=== PATIENT | female | born 1960 | race Caucasian/White ===

== ENCOUNTER 2018-09-16 11:55 | Emergency (ER) | payer OTHER ==
--- OUTSIDE RECORDS SUMMARY | 2018-09-16 11:57 | XMS REPORT ---
:1960 [facility] Address [address] [place] [address] Care Team Providers Name Role Phone Unavailable Unavailable Unavailable Payers Payer Name Policy Type Policy Number Effective Date Expiration Date Problems This patient has no known problems. Allergies, Adverse Reactions, Alerts Allergy Name Allergy Status Severity Reaction(s) Onset Inactive Treating Comments Type Date Date Clinician Tetracyclines DA Active U 2017-0 4-17 00:00: 00 lactose DA Active U 2018-0 4-17 00:00: 00 clindamycin DA Active U 2017-0 4-17 00:00: 00 clavulanic acid DA Active U 2017-0 4-17 00:00: [address] 0 4-17 00:00: 00 [place] [address] 4-17 00:00: 00 egg DA Active U 0 4-17 00:00: 00 Medications This patient has no known medications. Results Test Description Test Time Test Comments Text Results Atomic Results Result Comments - CT MAXIFAC W/O 2018-08-31 13:39:00 Name: LENIN FAITH [facility] [place] : 1960 Age/S: 57 / F [id number] [place] [place] Unit #: [id number] Loc: [place] [address] Phys: Lawrence Bryan III, MD Acct: [id number] Dis Date: Status: REG CLI PHONE #: [phone] Exam Date: 08/31/2018 1226 FAX #: Reason: SINUS LANDMARK EXAMS: CPT: [id number] CT MAXIFAC W/O CONTRAST 06324 Location: T 18 CT of the sinuses, 08/31/18 TECHNIQUE: CT examination of the sinuses was performed obtaining 1.25 mm axial images on a helical scanner without IV contrast. CT landmark technique employed. Both coronal and sagittal 2D reformatted images acquired on the CT workstation using MPR software. Scanning conducted in the axial plane contiguously from above frontal sinuses through oropharynx . The examination was performed on an updated helical CT scanning using low-dose radiation technique. Automatic exposure control technique was utilized to reduce radiation dose. CLINICAL HISTORY: Chronic sinusitis. ICD code J 32.9 COMPARISON EXAMS: None of the sinuses FINDINGS: FRONTAL SINUSES: There is extensive opacification in the left frontal sinus with associated mucoperiosteal thickening consistent with chronic sinus disease with essentially complete opacification without dural violation identified. The right frontal sinus is somewhat hyperplastic but clear. No compromise of the right frontal ethmoidal recess. ETHMOID AIR CELLS: Normal development is identified with extensive opacification of the left anterior chamber. Relative sparing of the left posterior chamber. There is also opacification medially in particular the right anterior ethmoid sinus on image #53 of moderate degree and very small degree right posteriorly. No dural violation again is seen with the fovea ethmoidalis noted to be intact. The lamina papyracea appears intact. Mild thinning of ethmoid septae of the left side consistent with chronic sinusitis. Both sphenoethmoidal recesses are patent. MAXILLARY SINUSES: Septation is seen transversing the right maxillary sinus seen anteriorly with trace degree of opacification along this septation. There is an air-fluid level in the left maxillary sinus of moderate size consistent with acute sinus disease. There is also lobulated mucosal thickening is seen of small degree in the left maxillary sinus PAGE 1 Signed Report (CONTINUED) [facility] 1960 Age[facility]S: 57 / F [id number] [facility] [place] Unit #: [id number] Loc: [place] [address] Phys: Lawrence Bryan III, MD Acct: [id number] Dis Date: Status: REG CLI PHONE #: [phone] Exam Date: 08/31/2018 1226 FAX #: Reason: SINUS LANDMARK EXAMS: CPT: [id number] CT MAXIFAC W/O CONTRAST 01749 <Continued> and there is also opacification along the left infundibulum with occlusion of the left ostiomeatal unit. No bony expansion or air-fluid level. Small ossified density having imaging characteristics of a small osteoma is also noted inferiorly and laterally in the right maxillary sinus measuring approximately 5 x 4 x 4 mm size.. SPHENOID SINUSES: There is presence of a left sphenoethmoidal air cell appear relatively clear. No significant sphenoid sinus disease. Nasal cavity/nasopharyngeal region: Minimal deviation nasal septum to the right. Right sanjay bullosa is identified. This does narrow the caliber of the right middle meatus. Polypoid changes also seen superiorly in the left side nasal cavity compromising drainage. No abnormality is seen in the nasopharyngeal region. No finding is seen intracranially. There is bilateral opacification of mastoid air cells moderate degree without coalescent appearance and without involvement of the middle ear cavity. IMPRESSION: Essentially complete opacification left frontal sinus and left anterior ethmoid sinus with findings consistent with chronic sinusitis. Occlusion of the left frontal ethmoidal recess is seen and there is also occlusion of the left ostiomeatal unit. Air-fluid level in the left maxillary sinus consistent with acute maxillary sinus disease. No mucocele formation correlation. Lesser degree of right paranasal sinus disease predominantly in the anterior ethmoid sinus medially. Bilateral mastoid air cell opacification moderate degree without coalescent appearance or involvement of the middle ear cavity PAGE 2 Signed Report (CONTINUED) Name: LENIN FAITH : 1960 Age/S: 57 / F [id number] [place] Unit #: [id number] Loc: [place] [address] Phys: Lawrence Bryan III, MD Acct: [id number] Dis Date: Status: REG CLI PHONE #: [phone] Exam Date: 08/31/2018 1226 FAX #: Reason: SINUS LANDMARK EXAMS: CPT: [id number] CT MAXIFAC W/O CONTRAST 91568 <Continued> at 1339 Reported and signed by: Belén Guerrero M.D. CC: Oswaldo Reynolds MD; Lawrence Bryan III, MD Technologist:Dario Francisco, RT(R)(CT); Kr CTDI: DLP: Trnscb Date/Time: 08/31/2018 (5803) [email or web address] Orig Print D/T: S: 08/31/2018 (4701) PAGE 3 Signed Report
--- OUTSIDE RECORDS SUMMARY | 2018-09-16 11:57 | XMS REPORT | Clinical Summary ---
:1960 Author Organization [facility] Address [address] [place] [address] Care Team Providers Name Role Phone Oswaldo Reynolds MD Primary Care Provider Allergies Active Allergy Reactions Severity Noted Date Comments Amoxicillin-Pot Clavulanate 07/08/2017 Ciprofloxacin 07/08/2017 Clindamycin 07/08/2017 Tetracycline 07/08/2017 Medications Medication Sig Dispensed Refills Start Date End Date Status amLODIPine (NORVASC) 10 Take 10 mg by 1 07/02/2017 Active mg tablet mouth nightly. baclofen (LIORESAL) 20 Take 20 mg by 2 06/29/2017 Active MG tablet mouth 3 (three) times a day as needed. clonIDINE (CATAPRES) Take 0.1 mg by 1 06/14/2017 Active 0.1 MG tablet mouth 2 (two) times a day. clotrimazole-betamethas APPLY LEFT FOOT 2 0 06/10/2017 Active one (LOTRISONE) 1-0.05 TIMES A DAY % cream desloratadine Take 5 mg by 0 05/20/2017 Active (CLARINEX) 5 mg tablet mouth daily. esomeprazole (NexIUM) Take 40 mg by 1 04/26/2017 Active 40 MG capsule mouth every morning. ibuprofen Take 800 mg by 2 06/14/2017 Active (ADVIL,MOTRIN) 800 MG mouth 3 (three) tablet times a day as needed. metFORMIN (GLUCOPHAGE) Take 1,000 mg by 1 07/02/2017 Active 1,000 mg tablet mouth 2 (two) times a day. methocarbamol (ROBAXIN) TAKE 1-2 ORAL 0 06/14/2017 Active 750 MG tablet THREE TIMES A DAY NEEDED metoprolol succinate XL TAKE BY MOUTH 1 2 06/28/2017 Active (TOPROL-XL) 100 mg 24 TABLET 2 TIMES A hr tablet DAY. olmesartan-hydrochlorot TAKE 1 TABLET BY 2 05/15/2017 Active hiazide (BENICAR HCT) MOUTH EVERY DAY 40-25 mg per tablet (DUE FOR LABS/ OFFICE VISIT BEFORE NEXT REFILL) pramipexole (MIRAPEX) TAKE 1-2 TABLET 1 06/21/2017 Active 0.25 MG tablet BY MOUTH 2-3 HOURS BEFORE BEDTIME Active Problems Problem Noted Date Carpal tunnel syndrome of left wrist 07/08/2017 Right carpal tunnel syndrome 07/08/2017 Olecranon bursitis of left elbow 06/24/2017 Olecranon bursitis of right elbow 05/13/2017 Social History Tobacco Use Types Packs/Day Years Used Date Never Assessed Sex Assigned at Date Recorded Not on file Job Start Date Occupation Industry Not on file Not on file Not on file Travel History Travel Start Travel End No recent travel history available. Last Filed Vital Signs Not on file Plan of Treatment Health Maintenance Due Date Last Done Comments BREAST CANCER SCREENING 2012 COLON CANCER SCREENING 2012 SHINGLES VACCINES (#1) 2012 INFLUENZA VACCINE 11/10/2018 Results Not on fileafter 09/15/2017 Advance Directives Patient has advance care planning documents on file. For more information, please contact:[place] [address]
[2018-09-16 13:03] LABS: Protime INR 1.07
[2018-09-16 13:06] LABS: Absolute Monocytes 0.3 K/uL (0.1-1.3); Basophils % 0.5 % (0-1.3); Eosinophils % 0.4 % (0-4.4); Hematocrit 41.6 % (36.0-45.0); Lymphocytes % 12.2 % (15.3-44.8); MPV 7.1 fL (7.6-11.3); RBC Red Blood Cell Count 5.23 M/uL (3.86-4.86)
[2018-09-16] MEDS ORDERED: ALBUTEROL 2.5 MG/3 ML NEB SOL ONE (13:18)
[2018-09-16] MEDS ORDERED: IPRATROPIUM BROM 0.5MG/2.5ML ONE (13:18)
[2018-09-16 13:19] LABS: ALT/SGPT 25 U/L (12-78); AST/SGOT 10 U/L (15-37); Albumin 3.8 g/dL (3.4-5.0); Alkaline Phosphatase 109 U/L (45-117); BUN Blood Urea Nitrogen 11 mg/dL (7-18); Bicarbonate 27 mmol/L (21-32); Bilirubin Direct 0.1 mg/dL (0-0.2); Bilirubin Total 0.3 mg/dL (0.2-1.0); Glucose Level 99 mg/dL (74-106); NT PRO-BNP 339 pg/mL (<125); Potassium 3.4 mmol/L (3.5-5.1); Protein, Total 7.5 g/dL (6.4-8.2); Sodium Level 134 mmol/L (136-145); Troponin (Emerg Dept Use Only) < 0.02 ng/mL (0.0-0.045)
[2018-09-16] MEDS ORDERED: METHYLPREDNISOLONE 40 MG INJ ONE (14:12)
[2018-09-16 14:14] LABS: Urine Blood NEGATIVE (NEG); Urine Glucose NEGATIVE (NEG)
[2018-09-16 14:15] LABS: Urine Protein NEGATIVE (NEG)
--- NOTE | 2018-09-16 14:45 | RAD REPORT ---
EXAM DESCRIPTION: CT - Chest For Pe Angio - 09/16/2018 2:33 pm CLINICAL HISTORY: Chest pain. SOB COMPARISON: No comparisons TECHNIQUE: CT angiogram of the pulmonary arteries was performed with MIP. All CT scans are performed using dose optimization technique as appropriate and may include automated exposure control or mA/KV adjustment according to patient size. FINDINGS: Left lobe of the thyroid is mildly enlarged and extends inferiorly resulting in mild mass effect on the trachea towards the right. No evidence of pulmonary thromboembolism. No acute aortic finding demonstrated. The lungs are clear. No significant pericardial or pleural fluid. No concerning bony finding. Mild thickening of both adrenal glands, greater on the right. Cholecystectomy clips. IMPRESSION: No evidence of pulmonary thromboembolism. No acute lung findings.
--- NOTE | 2018-09-16 15:50 | EDPHYS ---
Physician Documentation [facility] Name: Gini Barrow Age: 57 yrs Sex: Female : 1960 Arrival Date: 09/16/2018 Time: 11:58 Bed 14 Private MD: Oswaldo Reynolds ED Physician Maged Chambers HPI: 09/16 12:33 This 57 yrs old Female presents to ER via Wheelchair with complaints of cp Breathing Difficulty. 12:33 The patient has shortness of breath with light activity. cp 12:33 Onset: The symptoms/episode began/occurred gradually, and became worse today. Duration: cp The symptoms are continuous, and are steadily getting worse. Associated signs and symptoms: Pertinent positives: productive cough, Pertinent negatives: chest pain, fever, hemoptysis, vomiting. Severity of symptoms: in the emergency department the symptoms are unchanged despite home interventions. Patient reports history of smoking and is prescribed inhalers albuterol and symbicort but reports no diagnosis of COPD. Patient reports she was seen by PCP and this week and since has been taking Bactrim and tapering dose of Prednisone for sinus infection. 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 ch Historical: - Allergies: 12:50 Egg Derived; aa5 12:50 dairy; aa5 12:50 TETRACYCLINES; aa5 12:50 Ciprofloxacin; aa5 12:50 Augmentin; aa5 12:50 Clindamycin; aa5 - Home Meds: 12:50 clonidine HCl 0.1 mg Oral tab 2 times per day [Active]; metoprolol succinate 100 mg aa5 oral Tb24 twice a day [Active]; metformin 1,000 mg Oral tab 1 tab 2 times per day [Active]; amlodipine 10 mg tab 1 tab once daily [Active]; esomeprazole magnesium 40 mg oral cpDR once daily [Active]; desloratadine 5 mg oral tab once daily [Active]; olmesartan oral oral once daily [Active]; pramipexole 0.25 mg oral tab nightly [Active]; aspirin 81 mg Oral chew once daily [Active]; Symbicort 160-4.5 mcg/actuation inhalation HFAA [Active]; Vitamin D Oral 2000 unit twice a day [Active]; Prednisolone 20mg Oral [Active]; Bactrim DS 800-160 mg Oral tab [Active]; ipratropium bromide inhalation inhalation [Active]; ProAir HFA inhalation inhalation [Active]; Symbicort inhalation inhalation [Active]; - PMHx: 12:50 Diabetes - NIDDM; Hypertension; Periodic Limb Movement Disorder; aa5 - PSHx: 12:26 Tonsillectomy; Cholecystectomy; ss - Immunization history:: Adult Immunizations up to date. - Ebola Screening: : No symptoms or risks identified at this time. - Social history:: Smoking status: Patient/guardian denies using tobacco, Patient/guardian denies using alcohol, street drugs. ROS: 12:38 Constitutional: Negative for body aches, chills, fever, poor PO intake. cp 12:38 Eyes: Negative for injury, pain, redness, and discharge. cp 12:38 ENT: Positive for sinus congestion, Negative for drainage from ear(s), ear pain, difficulty swallowing, difficulty handling secretions. 12:38 Cardiovascular: Positive for edema, Negative for chest pain, palpitations. 12:38 Respiratory: Positive for cough, shortness of breath, on exertion. Negative for hemoptysis. 12:38 Abdomen/GI: Negative for abdominal pain, nausea, vomiting, and diarrhea, black/tarry stool, rectal bleeding. 12:38 Back: Negative for pain at rest, pain with movement, radiated pain. 12:38 : Negative for urinary symptoms. 12:38 Skin: Negative for swelling. 12:38 Neuro: Negative for altered mental status, headache, weakness. 12:38 All other systems are negative. Exam: 12:45 ECG was reviewed by the Attending Physician. cp 12:45 Constitutional: The patient appears in no acute distress, alert, awake, cp non-diaphoretic, non-toxic, well developed, well nourished, obese. 12:45 Head/Face: Normocephalic, atraumatic. cp 12:45 Eyes: Pupils equal round and reactive to light, extra-ocular motions intact. Lids and lashes normal. Conjunctiva and sclera are non-icteric and not injected. Cornea within normal limits. Periorbital areas with no swelling, redness, or edema. 12:45 ENT: External ear(s): are unremarkable, Ear canal(s): are normal, clear, TM's: dullness, bilaterally, Nose: is normal, Mouth: Lips: moist, Oral mucosa: moist, Posterior pharynx: Airway: no evidence of obstruction, patent, Tonsils: no enlargement, no exudate, swelling, is not appreciated, erythema, that is mild, exudate, is not appreciated, Voice: is normal. 12:45 Neck: External neck: is normal, ROM/movement: is normal, is supple, without pain, no range of motions limitations, no nuchal rigidity. 12:45 Chest/axilla: Inspection: normal, Palpation: is normal, no crepitus, no tenderness. 12:45 Cardiovascular: Rate: normal, Rhythm: regular, Edema: ankle edema, that is mild, JVD: is not appreciated. 12:45 Respiratory: the patient does not display signs of respiratory distress, Respirations: normal, no use of accessory muscles, no retractions, no splinting, no tachypnea, labored breathing, is not present, Breath sounds: decreased breath sounds, that are mild, diffuse, stridor, is not appreciated, + upper airway congestion. wheezing: is not appreciated. 12:45 Abdomen/GI: Inspection: abdomen appears normal, Palpation: abdomen is soft and non-tender, in all quadrants. 12:45 Back: pain, is absent, ROM is normal. 12:45 Skin: no rash present. 12:45 Neuro: Orientation: to person, place \T\ time. Mentation: is normal, Cerebellar function: is grossly normal, Motor: is normal, Sensation: is normal, Gait: is steady. Vital Signs: 12:26 BP 136 / 90; Pulse 82; Resp 25; Pulse Ox 94% on R/A; ss 12:50 Temp 99.3(O); aa5 14:00 BP 122 / 81; Pulse 85; Resp 20 S; Pulse Ox 94% on R/A; Pain 0/10; aa5 15:27 BP 132 / 82; Pulse 82; Resp 22; Temp 98.9; Pulse Ox 98% on R/A; Pain 6/10; ch 16:01 BP 128 / 78; Pulse 80; Resp 16; Temp 98.8; Pulse Ox 99% on R/A; Pain 2/10; ch MDM: 12:15 Patient medically screened. cp 13:00 Differential diagnosis: asthma, Bronchitis CHF exacerbation, Chronic Obstructive cp Pulmonary Disease Myocardial Infarction pneumonia, Pneumothorax pulmonary edema, Pulmonary Embolism reactive airway disease. 15:50 Data reviewed: vital signs, nurses notes, lab test result(s), EKG, radiologic studies, cp CT scan, and as a result, I will discharge patient. 15:50 Test interpretation: by ED physician or midlevel provider: ECG. Counseling: I had a cp detailed discussion with the patient and/or guardian regarding: the historical points, exam findings, and any diagnostic results supporting the discharge/admit diagnosis, lab results, radiology results, the need for outpatient follow up, a family practitioner, to return to the emergency department if symptoms worsen or persist or if there are any questions or concerns that arise at home. Response to treatment: the patient's symptoms have mildly improved after treatment, and as a result, I will discharge patient. 09/16 12:30 Order name: Basic Metabolic Panel; Complete Time: 13:19 09/16 13:20 Interpretation: Normal except: NA 134; K 3.4; CL 96; GFR 63. 09/16 12:30 Order name: CBC with Diff; Complete Time: 13:19 cp 09/16 12:30 Order name: LFT's; Complete Time: 13:19 cp 09/16 12:30 Order name: Magnesium; Complete Time: 13:19 cp 09/16 12:30 Order name: NT PRO-BNP; Complete Time: 13:19 cp 09/16 13:20 Interpretation: Abnormal: NT PRO-BNP 339. cp 09/16 12:30 Order name: PT-INR; Complete Time: 13:19 cp 09/16 12:30 Order name: Troponin (emerg Dept Use Only); Complete Time: 13:19 cp 09/16 12:30 Order name: EKG; Complete Time: 12:31 cp 09/16 13:23 Order name: D-Dimer; Complete Time: 14:02 cp 09/16 14:02 Interpretation: Abnormal: D-DIMER 654. cp 09/16 13:23 Order name: LAB Add On 09/16 13:52 Order name: Urine Dipstick--Ancillary (enter results); Complete Time: 15:31 eb 09/16 14:03 Order name: CT Chest For PE Angio; Complete Time: 15:31 cp 09/16 15:32 Interpretation: Report reviewed. 09/16 12:30 Order name: Cardiac monitoring; Complete Time: 12:51 cp 09/16 12:30 Order name: EKG - Nurse/Tech; Complete Time: 12:51 cp 09/16 12:30 Order name: IV Saline Lock; Complete Time: 13:51 cp 09/16 12:30 Order name: Labs collected and sent; Complete Time: 12:51 cp 09/16 12:30 Order name: O2 Per Protocol; Complete Time: 12:51 cp 09/16 12:30 Order name: O2 Sat Monitoring; Complete Time: 12:51 cp 09/16 15:27 Order name: Diet [place]; Complete Time: 15:29 EC:45 Rate is 81 beats/min. Rhythm is regular. PA interval is normal. QRS interval is normal. cp QT interval is normal. Interpreted by me. Reviewed by me. Administered Medications: 13:00 Drug: Albuterol - atroVENT (3:1) (2.5 mg - 0.5 mg) 3 ml Route: Nebulizer; aa5 13:20 Follow up: Response: Wheezing diminished aa5 15:19 Follow up: Response: No adverse reaction 14:00 Drug: SOLU-Medrol 60 mg Route: IVP; Site: right upper arm; aa5 14:05 Follow up: Response: No adverse reaction aa5 Disposition: 09/17 07:25 Co-signature as Attending Physician, Maged Chambers MD. rn Disposition: 09/16/18 15:51 Discharged to Home. Impression: Shortness of breath, Cough. - Condition is Stable. - Discharge Instructions: Shortness of Breath, Cool Mist Vaporizer, Aspirin and Your Heart, Cough, Adult. - Prescriptions for Tessalon Perles 100 mg Oral Capsule - take 2 capsule by ORAL route every 8 hours As needed; 30 capsule. Albuterol Sulfate 2.5 mg /3 mL (0.083 %) Inhalation Solution for Nebulization - inhale 1 unit by NEBULIZATION route every 8 hours As needed; 1 box. - Medication Reconciliation Form, Thank You Letter, Antibiotic Education, Prescription Opioid Use form. - Follow up: Private Physician; When: 2 - 3 days; Reason: Worsening of condition. - Problem is new. - Symptoms have improved. Signatures: Dispatcher [employer] Mitali Novak RN RN Maged Chambers MD MD rn Calderon, Audri, RN RN aa5 Mirlande Hou RN RN ss Haider Lara PA PA cp Corrections: (The following items were deleted from the chart) 09/16 16:05 15:51 09/16/2018 15:51 Discharged to Home. Impression: Shortness of breath; Cough. ch Condition is Stable. Forms are Medication Reconciliation Form, Thank You Letter, Antibiotic Education, Prescription Opioid Use. Follow up: Private Physician; When: 2 - 3 days; Reason: Worsening of condition. Problem is new. Symptoms have improved. cp
--- NOTE | 2018-09-16 15:50 | ER ---
Nurse's Notes [facility] Name: Gini Barrow Age: 57 yrs Sex: Female : 1960 Arrival Date: 09/16/2018 Time: 11:58 Bed 14 Private MD: Oswaldo Reynolds Diagnosis: Shortness of breath;Cough Presentation: 09/16 12:11 Presenting complaint: Patient states: difficulty breathing on exertion, when getting ss anxious and/or upset. Pt reports she was seen recently by PCP for similar symptoms and put on prednisone and Bactrim which do not seem to be helping. 12:11 Method Of Arrival: Wheelchair ss 12:11 Transition of care: patient was not received from another setting of care. Onset of ss symptoms is unknown. Risk Assessment: Do you want to hurt yourself or someone else? Patient reports no desire to harm self or others. Initial Sepsis Screen: Does the patient meet any 2 criteria? No. Patient's initial sepsis screen is negative. Does the patient have a suspected source of infection? No. Patient's initial sepsis screen is negative. Care prior to arrival: None. 12:11 Acuity: AVELINA 3 ss SIEVE MAKER: 16:04 LMP N/A - menopause. ch Historical: - Allergies: 12:50 Egg Derived; aa5 12:50 dairy; aa5 12:50 TETRACYCLINES; aa5 12:50 Ciprofloxacin; aa5 12:50 Augmentin; aa5 12:50 Clindamycin; aa5 - Home Meds: 12:50 clonidine HCl 0.1 mg Oral tab 2 times per day [Active]; metoprolol succinate 100 mg aa5 oral Tb24 twice a day [Active]; metformin 1,000 mg Oral tab 1 tab 2 times per day [Active]; amlodipine 10 mg tab 1 tab once daily [Active]; esomeprazole magnesium 40 mg oral cpDR once daily [Active]; desloratadine 5 mg oral tab once daily [Active]; olmesartan oral oral once daily [Active]; pramipexole 0.25 mg oral tab nightly [Active]; aspirin 81 mg Oral chew once daily [Active]; Symbicort 160-4.5 mcg/actuation inhalation HFAA [Active]; Vitamin D Oral 2000 unit twice a day [Active]; Prednisolone 20mg Oral [Active]; Bactrim DS 800-160 mg Oral tab [Active]; ipratropium bromide inhalation inhalation [Active]; ProAir HFA inhalation inhalation [Active]; Symbicort inhalation inhalation [Active]; - PMHx: 12:50 Diabetes - NIDDM; Hypertension; Periodic Limb Movement Disorder; aa5 - PSHx: 12:26 Tonsillectomy; Cholecystectomy; ss - Immunization history:: Adult Immunizations up to date. - Ebola Screening: : No symptoms or risks identified at this time. - Social history:: Smoking status: Patient/guardian denies using tobacco, Patient/guardian denies using alcohol, street drugs. Screenin:40 Abuse screen: Denies threats or abuse. Nutritional screening: No deficits noted. aa5 Tuberculosis screening: No symptoms or risk factors identified. Fall Risk IV access (20 points). Ambulatory Aid- Crutches/Cane/Walker (15 pts). Total Gudino Fall Scale indicates Low Risk Score (25-44 pts). Fall prevention measures have been instituted. Assessment: 12:50 General: Appears uncomfortable, obese, Behavior is cooperative, anxious. Pain: Denies aa5 pain. Neuro: Level of Consciousness is awake, alert, obeys commands, Oriented to person, place, time, situation. Cardiovascular: Heart tones S1 S2 present Edema present to bilateral lower extremities. Rhythm is regular. Respiratory: Reports shortness of breath on exertion cough Airway is patent Respiratory effort is even, unlabored, Respiratory pattern is regular, symmetrical, Breath sounds with wheezes bilaterally. GI: Abdomen is obese. : No signs and/or symptoms were reported regarding the genitourinary system. EENT: No signs and/or symptoms were reported regarding the EENT system. Derm: Skin is pink, warm \\T\\ dry. Musculoskeletal: Range of motion: intact in all extremities, Pt is ambulatory with walker. 13:20 Reassessment: Patient is alert, oriented x 3, equal unlabored respirations, skin aa5 warm/dry/pink. Wheezing diminished bilaterally. Asked pt if SOB has improved, pt starts crying and states "I don't know". Asked pt if there is anything else I can do for her, states no complaints at this time. Pt appears calm now with sister at bedside. . 14:03 Reassessment: Patient is alert, oriented x 3, equal unlabored respirations, skin aa5 warm/dry/pink. Pt appears upset, pt states "I have to sit in this chair because the bed is so uncomfortable but the chair is not that comfortable either". Pt had disconnected all monitoring prior to me entering the room, monitoring continued at this time and pt agrees. Wheezing diminished. Pt states "I just need to get out of here as soon as possible because I am just so uncomfortable". Pt awaiting CT chest, pt notified of wait time, pt verbalizes understanding. . 15:25 Reassessment: Patient appears in no apparent distress at this time. Patient and/or ch family updated on plan of care and expected duration. Pain level reassessed. pt states her head hurts, she is hungry, slightly nausous, she wants her results back, and she feels very restless. pt brought some crackers. . 16:01 Reassessment: Patient appears in no apparent distress at this time. Patient and/or ch family updated on plan of care and expected duration. Pain level reassessed. Patient is alert, oriented x 3, equal unlabored respirations, skin warm/dry/pink. haider lara reviews plan of care with pt. pt refuses steroids. pt discharged home with prescriptions. no s/s of distress.. Vital Signs: 12:26 BP 136 / 90; Pulse 82; Resp 25; Pulse Ox 94% on R/A; ss 12:50 Temp 99.3(O); aa5 14:00 BP 122 / 81; Pulse 85; Resp 20 S; Pulse Ox 94% on R/A; Pain 0/10; aa5 15:27 BP 132 / 82; Pulse 82; Resp 22; Temp 98.9; Pulse Ox 98% on R/A; Pain 6/10; ch 16:01 BP 128 / 78; Pulse 80; Resp 16; Temp 98.8; Pulse Ox 99% on R/A; Pain 2/10; ch ED Course: 11:58 Patient arrived in ED. mr 11:58 Oswaldo Reynolds MD is Private Physician. mr 12:11 Haider Lara PA is PHCP. cp 12:11 Maged Chambers MD is Attending Physician. cp 12:26 Arm band placed on right wrist. ss 12:36 Triage completed. ss 12:45 Initial lab(s) drawn, by me, sent to lab. Missed attempt(s): 20 gauge in right forearm. dh3 Bleeding controlled, band aid applied, catheter tip intact. 12:50 Patient has correct armband on for positive identification. Placed in gown. Bed in low aa5 position. Call light in reach. Side rails up X 1. Adult w/ patient. 12:50 equipment monitor phototypesetting on. Pulse ox on. NIBP on. aa5 12:51 Evangelina Oliveira, VERITO is Primary Nurse. aa5 13:00 EKG done, by alarm technician. reviewed by Haider SONG. at1 13:40 Inserted saline lock: 22 gauge in right upper arm, using aseptic technique. Blood aa5 collected. 13:50 Urine collected: clean catch specimen, clear, sediment noted. dh3 14:00 Warm blanket given. ch 14:00 No provider procedures requiring assistance completed. IV discontinued, intact, ch bleeding controlled, No redness/swelling at site. Pressure dressing applied. 14:15 Report given to Mitali Shaikh RN. aa5 14:38 CT Chest For PE Angio In Process Unspecified. EDWV 16:01 Primary Nurse role handed off by Evangelina Oliveiar RN 16:01 Mitali Shaikh, VERITO is Primary Nurse. 16:04 No apparent distress. Resting quietly. Administered Medications: 13:00 Drug: Albuterol - atroVENT (3:1) (2.5 mg - 0.5 mg) 3 ml Route: Nebulizer; aa5 13:20 Follow up: Response: Wheezing diminished aa5 15:19 Follow up: Response: No adverse reaction 14:00 Drug: SOLU-Medrol 60 mg Route: IVP; Site: right upper arm; aa5 14:05 Follow up: Response: No adverse reaction aa5 Outcome: 15:51 Discharge ordered by MD. cp 16:04 Discharged to home via wheelchair, with family. 16:04 Condition: stable 16:04 Discharge instructions given to patient, family, Instructed on discharge instructions, follow up and referral plans. medication usage, Demonstrated understanding of instructions, follow-up care, medications, Prescriptions given X 3, pt given written prescription for nebulizer. 16:05 Patient left the ED. Signatures: Dispatcher [employer] [facility] Mitali Shaikh, Yue Pittman RN, ch, Evangelina, RN RN aa5 Mirlande Hou RN RN ss Radha Lennon, cloth winding supervisor EKG Tat1 Haider Lara PA PA cp Herrera, Vania 3 Corrections: (The following items were deleted from the chart) 15:19 14:00 Reassessment: Patient is alert, oriented x 3, equal unlabored respirations, skin aa5 warm/dry/pink. Pt appears upset, pt states "I have to sit in this chair because the bed is so uncomfortable but the chair is not that comfortable either". Pt had disconnected all monitoring prior to me entering the room, monitoring continued at this time and pt agrees. Wheezing diminished. Pt states "I just need to get out of here as soon as possible because I am just so uncomfortable". Pt awaiting CT chest, pt notified of wait time, pt verbalizes understanding. . aa5
[2018-09-16 16:23] VITALS: BP 128/78; TEMP 98.8; O2SAT 99
--- NOTE | 2018-09-17 09:04 | EKG ---
Test Date: 2018-09-16 Test Time: 12:37:24 [employer]: ARMIDA MEASUREMENT RESULTS: Intervals: Rate: 81 [place]: 144 QRSD: 82 QT: 368 QTc: 427 [place]: P: 54 [place]: 144 QRS: 40 T: 52 INTERPRETIVE STATEMENTS: Normal sinus rhythm Normal ECG Compared to ECG 10/01/2014 15:14:32 No significant changes Electronically Signed On 09-17-18 09:01:06 CDT by Kuldip Patel
== END 2018-09-16 16:05 | disposition home or self-care (01) ==
LOC: ER 11:55
DX: R05 Cough (principal); R06.02 Shortness of breath; E11.9 Type 2 diabetes mellitus without complications; I10 Essential (primary) hypertension; Z88.1 Allergy status to other antibiotic agents; Z79.84 Long term (current) use of oral hypoglycemic drugs; Z79.82 Long term (current) use of aspirin
CPT/HCPCS: 36415; 71275; 80048; 80076; 81003; 83735; 83880; 84484; 85025; 85379; 85610; 93005; 94640; 96374; 99285; J2920; Q9967

== ENCOUNTER 2019-05-14 16:22 | Inpatient (IN) | payer BC, OTHER ==
--- OUTSIDE RECORDS SUMMARY | 2019-05-14 16:24 | XMS REPORT ---
:1960 [facility] [address] [place] [address] Care Team Providers Name Role Phone Unavailable [...] 2017-0 4-17 00:00: 00 ciprofloxacin DA Active UT 0 4-17 00:00: 00 amoxicillin DA Active U 0 4-17 00:00: 00 egg DA Active U 0 4-17 00:00: 00 Medications This patient has no known medications. Results Test Description Test Time Test Comments Text Results Atomic Results Result Comments - CT MAXIFAC W/O 2018-08-31 13:39:00 Name: LENIN FAITH [facility] Robina : 1960 Age/S: 57 / F [id number] [address] [place] Unit #: [id number] Loc: [place] [address] Phys: Lawrence Bryan III, MD Acct: [id number] Dis Date: Status: REG CLI PHONE #: [phone] Exam Date: 08/31/2018 1226 FAX #: Reason: SINUS LANDMARK EXAMS: CPT: [id number] CT MAXIFAC W/O CONTRAST 83052 Location: T 18 CT of the sinuses, [...] PAGE 1 Signed Report (CONTINUED) [facility] 1960 Age/S: 57 / F [id number] [facility] [place] Unit #: [id number] Loc: [place] [address] Phys: Lawrence Bryan III, MD Acct: [id number] Dis Date: Status: REG CLI PHONE #: [phone] Exam Date: 08/31/2018 1226 FAX #: Reason: SINUS LANDMARK EXAMS: CPT: [id number] CT MAXIFAC W/O CONTRAST 95879 <Continued> and there is also opacification along [...] FAITH : 1960 Age/S: 57 / F [id number] [address] [place] Unit #: [id number] Loc: [place] [address] Phys: Lawrence Bryan III, MD Acct: [id number] Dis Date: Status: REG CLI PHONE #: [phone] Exam Date: 08/31/2018 1226 FAX #: Reason: SINUS LANDMARK EXAMS: CPT: [id number] CT MAXIFAC W/O CONTRAST 25901 <Continued> at 1339 Reported and signed by: Belén Guerrero M.D. CC: Oswaldo Reynolds MD; Lawrence Bryan III, MD Technologist:Daroi Francisco, RT(R)(CT); Kr CTDI: DLP: Trnscb Date/Time: 08/31/2018 (1081) [email or web address] Orig Print D/T: S: 08/31/2018 (8028) PAGE 3 Signed Report
[2019-05-14] MEDS ORDERED: FAMOTIDINE 20 MG/2 ML VIAL IV ONE (16:51)
[2019-05-14] MEDS ORDERED: NA CHLORIDE 0.9% 2,000 ML ONE (16:51)
[2019-05-14 17:05] LABS: Absolute Lymphocytes (CBC) 0.9 K/uL (0.7-4.9); Basophils % 0.2 % (0-1.3); Hematocrit 42.1 % (36.0-45.0); Lymphocytes % 5.1 % (15.3-44.8); MPV 8.6 fL (7.6-11.3); RBC Red Blood Cell Count 5.18 M/uL (3.86-4.86)
[2019-05-14 17:06] LABS: Protime INR 1.1
[2019-05-14 17:14] LABS: Arterial Blood Carboxyhemoglob 0.2 % (0-1.5); Blood Gas Oxyhemoglobin 92.2 % (94-97); Blood O2 Saturation 93.6 % (92-98.5)
--- NOTE | 2019-05-14 17:21 | RAD REPORT ---
EXAM DESCRIPTION: RAD - Chest Single View - 05/14/2019 4:58 pm CLINICAL HISTORY: COUGH, shortness of breath COMPARISON: Two view chest November 15, 2018 TECHNIQUE: AP portable chest image was obtained 05/14/2019 4:58 pm . FINDINGS: Airspace opacification present lateral aspect of the right upper lobe. Interstitial markin gs are prominent overall, mostly due to shallow inspiration. Heart and vasculature are normal. No jessy surable pleural effusion and no pneumothorax. No acute bony abnormality seen. No acute aortic finding s suspected. IMPRESSION: Small to moderate size right upper lobe pneumonia. Overall increased interstitial pattern that could be concurrent viral infiltrate or interstitial eli a.
[2019-05-14] MEDS ORDERED: LORazepam 2 MG/ML VIAL ONE (17:30)
[2019-05-14 17:31] LABS: Blood Morphology Comment NOT SEEN (NOT SEEN); Platelet Estimate ADEQ; Urine White Blood Cell Casts OK
[2019-05-14 17:56] LABS: ALT/SGPT 16 U/L (12-78); AST/SGOT 25 U/L (15-37); Albumin 3.8 g/dL (3.4-5.0); Alkaline Phosphatase 103 U/L (45-117); BUN Blood Urea Nitrogen 116 mg/dL (7-18); Bilirubin Direct 0.1 mg/dL (0-0.2); Bilirubin Total 0.4 mg/dL (0.2-1.0); Glucose Level 95 mg/dL (74-106); Lipase 280 U/L (73-393); Magnesium 1.6 mg/dL (1.8-2.4); NT PRO-BNP 861 pg/mL (<125); Potassium 3.9 mmol/L (3.5-5.1); Protein, Total 7.3 g/dL (6.4-8.2); Sodium Level 121 mmol/L (136-145); Troponin (Emerg Dept Use Only) < 0.02 ng/mL (0.0-0.045)
[2019-05-14 17:59] LABS: Bicarbonate 10 mmol/L (21-32)
[2019-05-14] MEDS ORDERED: VANCOMYCIN 2 GM in NA CHLORIDE 0.9% 500 ML IVPB ONE (18:00)
[2019-05-14] MEDS ORDERED: CEFEPIME/SWI 2gm 2 GM/20 ML SYR IVP ONE (18:00)
[2019-05-14] MEDS ORDERED: VANCOMYCIN/NS 1 gm 1 GM/250 ML BAG IVPB ONE (18:00)
[2019-05-14] MEDS ORDERED: MAGNESIUM SULFATE 1 gm IVPB 1 GM/100 ML BAG IV ONE (18:21)
--- NOTE | 2019-05-14 18:22 | ER ---
Nurse's Notes [facility] Name: Gini Barrow Age: 58 yrs Sex: Female : 1960 Arrival Date: 05/14/2019 Time: 16:24 Bed 4 Private MD: Diagnosis: Severe sepsis without septic shock;Acute kidney failure;Acidosis;Pneumonia due to other specified bacteria-moderate right upper lobe;Hypo-osmolality and hyponatremia;Hypomagnesemia;Elevated white blood cell count;Hypotension Presentation: 05/14 16:26 Presenting complaint: Patient states: Shortness of breath for the past 2 weeks. aj1 states that she seems confused, won't eat, started breathing hard this morning, and that she has just been laying and bed and won't do anything. Transition of care: patient was not received from another setting of care. Onset of symptoms was May 2019. Risk Assessment: Do you want to hurt yourself or someone else? Patient reports no desire to harm self or others. Initial Sepsis Screen: Does the patient meet any 2 criteria? RR > 20 per min. Temp <36.0*C (96.8*F)) or > 38.3*C (100.9*F). Altered Mental Status. Yes Does the patient have a suspected source of infection? Yes: Productive cough/pneumonia. Care prior to arrival: None. 16:26 Method Of Arrival: Wheelchair aj1 16:26 Acuity: AVELINA 2 aj1 Triage Assessment: 16:34 General: Appears ill, Behavior is cooperative, anxious, restless. Pain: Denies pain. aj1 Neuro: Level of Consciousness is awake, alert. Cardiovascular: Patient's skin is warm and dry. Respiratory: Reports shortness of breath at rest Onset: The symptoms/episode began/occurred today, the patient has moderate shortness of breath. Historical: - Allergies: 16:34 Augmentin; aj1 16:34 Ciprofloxacin; aj1 16:34 Clindamycin; aj1 16:34 Dairy; aj1 16:34 Egg Derived; aj1 16:34 TETRACYCLINES; aj1 - PMHx: 16:34 Diabetes - NIDDM; Hypertension; Periodic Limb Movement Disorder; aj1 - Immunization history:: Flu vaccine is not up to date. - Coronavirus screen:: The patient has NOT traveled to [place], [place], or [place] in the past 14 days. - Social history:: Smoking status: Patient reports the use of cigarette tobacco products. - Family history:: not pertinent. - Ebola Screening: : Patient denies travel to an Ebola-affected area in the 21 days before illness onset. Screenin:54 Abuse screen: Denies threats or abuse. Denies injuries from another. Nutritional ss screening: No deficits noted. Tuberculosis screening: Never had TB. 19:00 Fall Risk IV access (20 points). Gait- Impaired (20 pts.). Mental Status- rr5 Overestimates/Forgets Limitations (15 pts.). Total Gudino Fall Scale indicates High Risk Score (45 or more points). Fall prevention measures have been instituted. Side Rails Up X 2 Placed Close to Nursing Station Frequent Obs/Assessments Occuring Family Present and informed to notify staff if the need to leave the bedside As available patient and family educated on Fall Prevention Program and Strategies. Assessment: 16:46 General: Appears uncomfortable, Behavior is anxious, restless, Denies fever. Pain: em Denies pain. Neuro: Level of Consciousness is awake, alert, obeys commands, Oriented to person, place, time, situation, Appropriate for age. Cardiovascular: Capillary refill is > 3 seconds is sluggish Patient's skin is warm and dry. Rhythm is sinus rhythm. Respiratory: Airway is patent Respiratory effort is even, labored, using tripod position, Respiratory pattern is regular, tachypnea Breath sounds are clear. EENT: Reports pain when swallowing. Derm: Skin is intact, is thin, Skin is pink, warm \T\ dry. Musculoskeletal: Capillary refill is > 3 seconds, in bilateral fingers. toes. 17:45 Reassessment: Patient and/or family updated on plan of care and expected duration. Pain em level reassessed. Patient is alert, oriented x 3, equal unlabored respirations, skin warm/dry/pink. Patient denies pain at this time. Patient states feeling better. Patient states symptoms have improved. 18:25 Reassessment: pt restless, more anxious, and reports being tired, provider notified, em will set up for intubation, family informed of situation. 18:40 Reassessment: Dr. Davila at bedside attempting central line . aa5 19:00 Reassessment: Dr. Davila remains at bedside attempting central line. . aa5 19:30 General: Appears in no apparent distress. Behavior is sedated. Pain: Unable to use pain rr5 scale. Patient is intubated. Neuro: Level of Consciousness is sedated. Oriented to none. Cardiovascular: Capillary refill < 3 seconds Patient's skin is warm and dry. Respiratory: Airway is patent Respiratory effort is on mechanical ventilator Respiratory pattern is regular, on mechanical ventilator intubated equal breath sounds. GI: Abdomen is distended, obese. : Najera in place to gravity drainage. EENT: Eyes pupils sluggish,redness bilateral eye covered with wet gauze. Derm: Skin is intact, is thin, Skin is pink, warm \T\ dry. Musculoskeletal: Capillary refill < 3 seconds. 19:30 Reassessment: received GCS 3/15, intubated patient ET 7.5, 24 lip level connected to rr5 mechanical ventilator,equal air entry. pupils 3mm sluggish, connected to secured entrance monitor vital signs taken and recorded with IV cannula G20 left upper arm, G22 right upper arm, with right femoral 3 way catheter intact- infusing vancomycin 2G/IV, azithromycin 500mg/IV and NaHCO3 drip at 100 ml/hr. infusing well. with Najera catheter F18 connected to urine bag draining yellow urine scanty in amount. for CT traumagram. 20:15 Reassessment: Patient appears in no apparent distress at this time. transfer to CT scan rr5 prior shifting to ICU. assisted by RT and military technology specialist. vitally stable, GCS 3/15, intubated equal air entry Oxygen saturation on 98%, with secured entrance monitor, IV cannula intact, with Najera catheter to urine bag. 21:15 Reassessment: report given to ICU norma. ABG post intubation result. relayed to rr5 over the phone. Vital Signs: 16:34 BP 88 / 65; Pulse 78; Resp 34; Temp 96.4; Pulse Ox 97% on R/A; Weight 111.13 kg (R); aj1 Height 5 ft. 5 in. (165.10 cm) (R); Pain 0/10; 17:15 BP 93 / 63; Pulse 79; Resp 42; Pulse Ox 99% on R/A; em 17:45 BP 99 / 80; Pulse 79; Resp 26; Pulse Ox 100% on Non-rebreather mask; em 18:30 BP 137 / 123; Pulse 96; em 18:40 BP 59 / 45; Pulse 97; em 18:50 BP 75 / 51; Pulse 66; Pulse Ox 95% on ETT vent; em 19:00 BP 84 / 54; Pulse 65; em 19:10 BP 96 / 60; Pulse 65; em 19:30 BP 106 / 64; Pulse 66; Resp 18 A; Temp 96.2; Pulse Ox 98% on ETT vent; rr5 20:00 BP 103 / 62; Pulse 71; Resp 18 A; Pulse Ox 98% on ETT vent; rr5 20:15 BP 99 / 60; Pulse 69; Resp 18 A; Temp 96.5; Pulse Ox 98% on ETT vent; rr5 16:34 Body Mass Index 40.77 (111.13 kg, 165.10 cm) aj1 ED Course: 16:24 Patient arrived in ED. mr 16:33 Triage completed. aj1 16:34 Arm band placed on Patient placed in an exam room. aj1 16:37 Haider Davila MD is Attending Physician. hemanth 16:42 Inserted saline lock: 20 gauge in left upper arm, using aseptic technique. ss 16:46 Rangel Mar, RN is Primary Nurse. em 16:54 Patient has correct armband on for positive identification. Placed in gown. Bed in low ss position. Call light in reach. Side rails up X2. monitoring tech on. Pulse ox on. NIBP on. 16:58 XRAY Chest (1 view) In Process Unspecified. EDMS 18:20 Steven Mitchell is Hospitalizing Provider. hemanth 18:22 Inserted saline lock: 22 gauge in right upper arm, using aseptic technique. ss 18:30 Radiology exam delayed due to pt being intubated. mw3 18:34 Assisted provider with intubation using 7.5 mm ETT via oral route. ET tube secured at aa5 24cm at the lips. Set up intubation tray. Intubated by Haider Davila MD Placement verified by CO2 detector w/ + color change, auscultating bilateral breath sounds. 19:15 Assisted provider with central line placement. Set up central line tray. Triple lumen em line placed in right femoral. Line placed by Haider Davila MD Placement verified by blood return, Dressed with Tape, Tegaderm, Patient tolerated well. Before procedure, did Practitioner(s) obtain informed consent? Yes. Patient \T\ family education about procedure, CLABSI prevention and S/S of infection? No. Time-out/Briefing performed prior to start of procedure? Yes. Was handwashing/sanitizing done immediately prior to procedure? Yes. Was patient positioned to in a way to prevent air embolism? Yes. Was procedure site sterilized? Yes, with chlorhexidine. Was the site allowed to dry? Yes. Was local anesthetic and/or sedation utilized? Yes. During the procedure, did the Practitioner(s) maintain a sterile field? Yes. Were unused ports clamped during insertion? Yes. Was a 2nd qualified MD obtained after 3 unsuccessful insertion attempts? No. Was blood aspirated from each lumen? Yes. After the procedure, did the Practitioner(s) clean the site and apply a sterile dressing?. 21:20 Patient admitted, IV remains in place. intact, No redness/swelling at site. rr5 Administered Medications: 16:50 Drug: NS 0.9% 1000 ml Route: IV; Rate: 1 bolus; Site: left antecubital; em 19:00 Follow up: Response: No adverse reaction; IV Status: Completed infusion; IV Intake: rr5 1000ml ; completed from AM shift 16:50 Drug: NS 0.9% 1000 ml Route: IV; Rate: 1 bolus; Site: left antecubital; em 19:00 Follow up: Response: No adverse reaction; IV Status: Completed infusion; IV Intake: rr5 1000ml ; complaeted from AM shift 17:08 Drug: Pepcid 20 mg Route: IVP; Site: left antecubital; em 17:28 Drug: Ativan 1 mg Route: IVP; Site: left antecubital; em 17:50 Follow up: Response: No adverse reaction; Marked relief of symptoms; Anxiety decreased em 17:29 Drug: Cefepime 2 grams Route: IVPB; Rate: 200 ml/hr; Infused Over: 30 mins; Site: left em antecubital; 17:31 Drug: vancoMYCIN 1 grams Route: IVPB; Infused Over: 2 hrs; Site: left antecubital; em 17:31 Drug: vancoMYCIN 1 grams Route: IVPB; Infused Over: 2 hrs; Site: left antecubital; em 18:15 Not Given (Duplicate Order): Magnesium Sulfate 1 grams IVPB once over 1 hrs hemanth 18:32 Drug: Versed 4 mg Route: IVP; Site: right upper arm; aa5 19:30 Follow up: Response: RASS: Deep sedation (-4) rr5 18:33 Drug: Etomidate 20 mg Route: IVP; Site: right upper arm; aa5 19:30 Follow up: Response: No adverse reaction; RASS: Deep sedation (-4) rr5 18:34 Drug: Rocuronium 70 mg Route: IVP; Site: right upper arm; aa5 19:30 Follow up: Response: No adverse reaction; RASS: Deep sedation (-4) rr5 18:40 Drug: Sodium Bicarbonate 3 amp Route: IVP; Site: right upper arm; em 21:00 Follow up: Response: No adverse reaction; Other; trasnfer to ICU rr5 18:40 Drug: Magnesium Sulfate 1 grams Route: IVPB; Infused Over: 1 hrs; Site: right upper arm;em 19:30 Follow up: Response: No adverse reaction; IV Status: Completed infusion; IV Intake: rr5 100ml 19:30 Dru mg of (Zithromax 500 mg, NS 0.9% 250 ml) {Note: right femoral catheter.} rr5 Route: IVPB; Infused Over: 1 hrs; Site: Other; 20:30 Follow up: Response: No adverse reaction; IV Status: Completed infusion; IV Intake: rr5 250ml Intake: 19:00 IV: 1000ml; Total: 1000ml. rr5 19:00 IV: 1000ml; Total: 2000ml. rr5 19:30 IV: 100ml; Total: 2100ml. rr5 20:30 IV: 250ml; Total: 2350ml. rr5 Outcome: 18:22 Decision to Hospitalize by Provider. hemanth 21:00 Admitted to ICU accompanied by nurse, accompanied by tech, via stretcher, room ICU 3, rr5 with oxygen, on monitor, with chart, Report called to gilles SELLERS 21:00 Condition: stable rr5 21:00 Instructed on the need for admit. 21:20 Patient left the ED. rr5 Signatures: Dispatcher [employer] Charity Prater RN RN ajHaider Sweeney MD MD cha Rivera, Yue mr Rangel Mar RN RN em Evangelina Oliveira RN RN aa5 Mirlande Hou RN RN Julissa Melgar mw3 Aguila Florentino RN RN rr5 Corrections: (The following items were deleted from the chart) 16:36 16:34 BP 88 / 65; Pulse 78bpm; Resp 18bpm; Pulse Ox 97% RA; Temp 96.4F; 111.13 kg aj1 Reported; Height 5 ft. 5 in. Reported; BMI: 40.7; Pain 0/10; aj1 19:51 19:30 500 mg of (Zithromax 500 mg, NS 0.9% 100 ml) IVPB in Other over 1 hrs rr5 rr5
--- NOTE | 2019-05-14 18:23 | EDPHYS ---
Physician Documentation [facility] Name: Gini Barrow Age: 58 yrs Sex: Female : 1960 Arrival Date: 05/14/2019 Time: 16:24 Bed 4 Private MD: ED Physician Haider Davila HPI: 05/14 16:47 This 58 yrs old Female presents to ER via Wheelchair with complaints of hemanth Breathing Difficulty, Blood Pressure Problem, Vomiting. 16:47 The patient has shortness of breath at rest, with light activity. Onset: The hemanth symptoms/episode began/occurred 3 day(s) ago. Duration: The symptoms are continuous, and are steadily getting worse. The patient's shortness of breath is aggravated by nothing. Associated signs and symptoms: Pertinent positives: non-productive cough, nausea. Severity of symptoms: At their worst the symptoms were moderate in the emergency department the symptoms are unchanged. The patient has experienced similar episodes in the past, several times. Historical: - Allergies: 16:34 Augmentin; aj1 16:34 Ciprofloxacin; aj1 16:34 Clindamycin; aj1 16:34 Dairy; aj1 16:34 Egg Derived; aj1 16:34 TETRACYCLINES; aj1 - PMHx: 16:34 Diabetes - NIDDM; Hypertension; Periodic Limb Movement Disorder; aj1 - Immunization history:: Flu vaccine is not up to date. - Coronavirus screen:: The patient has NOT traveled to [place], [place], or [place] in the past 14 days. - Social history:: Smoking status: Patient reports the use of cigarette tobacco products. - Family history:: not pertinent. - Ebola Screening: : Patient denies travel to an Ebola-affected area in the 21 days before illness onset. ROS: 16:47 Constitutional: Negative for fever, chills, and weight loss, Eyes: Negative for injury, hemanth pain, redness, and discharge, ENT: Negative for injury, pain, and discharge, Neck: Negative for injury, pain, and swelling, Cardiovascular: Negative for chest pain, palpitations, and edema, Abdomen/GI: Negative for abdominal pain, nausea, vomiting, diarrhea, and constipation, Back: Negative for injury and pain, : Negative for injury, bleeding, discharge, and swelling, MS/Extremity: Negative for injury and deformity, Skin: Negative for injury, rash, and discoloration, Neuro: Negative for headache, weakness, numbness, tingling, and seizure, Psych: Negative for depression, anxiety, suicide ideation, homicidal ideation, and hallucinations, Allergy/Immunology: Negative for hives, rash, and allergies, Endocrine: Negative for neck swelling, polydipsia, polyuria, polyphagia, and marked weight changes, Hematologic/Lymphatic: Negative for swollen nodes, abnormal bleeding, and unusual bruising. 16:47 Respiratory: Positive for cough, shortness of breath, at rest. Exam: 16:47 Constitutional: This is a well developed, well nourished patient who is awake, alert, hemanth and in no acute distress. Head/Face: Normocephalic, atraumatic. Eyes: Pupils equal round and reactive to light, extra-ocular motions intact. Lids and lashes normal. Conjunctiva and sclera are non-icteric and not injected. Cornea within normal limits. Periorbital areas with no swelling, redness, or edema. ENT: Nares patent. No nasal discharge, no septal abnormalities noted. Tympanic membranes are normal and external auditory canals are clear. Oropharynx with no redness, swelling, or masses, exudates, or evidence of obstruction, uvula midline. Mucous membranes moist. Neck: Trachea midline, no thyromegaly or masses palpated, and no cervical lymphadenopathy. Supple, full range of motion without nuchal rigidity, or vertebral point tenderness. No Meningismus. Chest/axilla: Normal chest wall appearance and motion. Nontender with no deformity. No lesions are appreciated. Cardiovascular: Regular rate and rhythm with a normal S1 and S2. No gallops, murmurs, or rubs. Normal PMI, no JVD. No pulse deficits. Abdomen/GI: Soft, non-tender, with normal bowel sounds. No distension or tympany. No guarding or rebound. No evidence of tenderness throughout. Back: No spinal tenderness. No costovertebral tenderness. Full range of motion. Female : Normal external genitalia. MS/ Extremity: Pulses equal, no cyanosis. Neurovascular intact. Full, normal range of motion. Neuro: Awake and alert, GCS 15, oriented to person, place, time, and situation. Cranial nerves II-XII grossly intact. Motor strength 5/5 in all extremities. Sensory grossly intact. Cerebellar exam normal. Normal gait. Psych: Awake, alert, with orientation to person, place and time. Behavior, mood, and affect are within normal limits. 16:47 Respiratory: moderate respiratory distress is noted, Respirations: labored breathing, that is mild, that is moderate, Breath sounds: decreased breath sounds, rhonchi, Respiratory rate: 34 Vital Signs: 16:34 BP 88 / 65; Pulse 78; Resp 34; Temp 96.4; Pulse Ox 97% on R/A; Weight 111.13 kg (R); aj1 Height 5 ft. 5 in. (165.10 cm) (R); Pain 0/10; 17:15 BP 93 / 63; Pulse 79; Resp 42; Pulse Ox 99% on R/A; em 17:45 BP 99 / 80; Pulse 79; Resp 26; Pulse Ox 100% on Non-rebreather mask; em 18:30 BP 137 / 123; Pulse 96; em 18:40 BP 59 / 45; Pulse 97; em 18:50 BP 75 / 51; Pulse 66; Pulse Ox 95% on ETT vent; em 19:00 BP 84 / 54; Pulse 65; em 19:10 BP 96 / 60; Pulse 65; em 19:30 BP 106 / 64; Pulse 66; Resp 18 A; Temp 96.2; Pulse Ox 98% on ETT vent; rr5 20:00 BP 103 / 62; Pulse 71; Resp 18 A; Pulse Ox 98% on ETT vent; rr5 20:15 BP 99 / 60; Pulse 69; Resp 18 A; Temp 96.5; Pulse Ox 98% on ETT vent; rr5 16:34 Body Mass Index 40.77 (111.13 kg, 165.10 cm) aj1 Procedures: 19:21 Intubation: Ventilated with 100% NRB prior to procedure. Intubated orally using # 3 hemanth Stanley blade with 7.5 mm ETT. was successful on first attempt. Ventilated with Ambu bag. Tube secured with ETT carbone Placement verified by CXR, CO2 detector with (+) color change, auscultating bilateral breath sounds, O2 saturation after procedure was 100 %. Patient tolerated well. Central Line: the site was prepped with Betadine, in sterile fashion, a triple lumen catheter was inserted, in the right in 4 attempts. placement was verified, by blood return, the site was dressed with using sterile technique, the patient tolerated the procedure, well. MDM: 16:37 Patient medically screened. hemanth 16:50 Data reviewed: vital signs, nurses notes, lab test result(s), EKG, radiologic studies, hemanth plain films. 05/14 16:46 Order name: Basic Metabolic Panel [facility] 05/14 16:46 Order name: CBC with Diff [facility] 05/14 16:46 Order name: LFT's; Complete Time: 18:00 [facility] 05/14 16:46 Order name: Magnesium; Complete Time: 18:00 [facility] 05/14 16:46 Order name: NT PRO-BNP; Complete Time: 18:00 [facility] 05/14 16:46 Order name: PT-INR; Complete Time: 17:41 [facility] 05/14 16:46 Order name: Troponin (emerg Dept Use Only); Complete Time: 18:00 [facility] 05/14 16:46 Order name: Blood Culture Adult (2) [facility] 05/14 16:46 Order name: Lipase; Complete Time: 18:00 [facility] 05/14 16:46 Order name: Lactate; Complete Time: 18:03 [facility] 05/14 16:46 Order name: Procalcitonin; Complete Time: 17:41 [facility] 05/14 16:46 Order name: ABG; Complete Time: 17:41 [facility] 05/14 16:47 Order name: Basic Metabolic Panel; Complete Time: 18:00 [facility] 05/14 16:47 Order name: CBC with Automated Diff; Complete Time: 17:41 [facility] 05/14 16:46 Order name: XRAY Chest (1 view); Complete Time: 17:41 [facility] 05/14 17:03 Order name: Glucose, Ancillary Testing; Complete Time: 17:41 [facility] 05/14 17:08 Order name: CBC Smear Scan; Complete Time: 17:41 [facility] 05/14 17:22 Order name: Ketone, Serum; Complete Time: 17:56 [facility] 05/14 17:22 Order name: Influenza Screen (a \T\ B); Complete Time: 17:56 [facility] 05/14 17:56 Order name: Urine Culture 05/14 17:58 Order name: Urine Dipstick--Ancillary (enter results) tx 05/14 18:09 Order name: Uric Acid; Complete Time: 19:30 [facility] 05/14 18:09 Order name: Osmolality, Serum [facility] 05/14 18:09 Order name: Urine Sodium Random; Complete Time: 19:30 [facility] 05/14 18:09 Order name: Urine Osmolality; Complete Time: 19:30 [facility] 05/14 18:26 Order name: CT Traumagram (Head C Spine CAP wo con) [facility] 05/14 19:55 Order name: ABG: post intubation verbal order rr5 05/14 20:51 Order name: Lactate Sepsis 2 HR Follow-up [facility] 05/14 21:05 Order name: ABG Arterial Blood Gas [facility] 05/14 16:46 Order name: EKG; Complete Time: 16:48 [facility] 05/14 16:46 Order name: Cardiac monitoring; Complete Time: 17:01 [facility] 05/14 16:46 Order name: EKG - Nurse/Tech; Complete Time: 18:00 [facility] 05/14 16:46 Order name: IV Saline Lock; Complete Time: 17:01 [facility] 05/14 16:46 Order name: Labs collected and sent; Complete Time: 17:01 [facility] 05/14 16:46 Order name: O2 Per Protocol; Complete Time: 17:01 [facility] 05/14 16:46 Order name: O2 Sat Monitoring; Complete Time: 17:01 [facility] 05/14 16:46 Order name: IV Saline Lock - Large Bore; Complete Time: 17:09 [facility] 05/14 16:46 Order name: Najera; Complete Time: 18:00 [facility] 05/14 18:26 Order name: Central Line Kit; Complete Time: 19:21 [facility] 05/14 19:43 Order name: RAD EDMI Administered Medications: 16:50 Drug: NS 0.9% 1000 ml Route: IV; Rate: 1 bolus; Site: left antecubital; em 19:00 Follow up: Response: No adverse reaction; IV Status: Completed infusion; IV Intake: rr5 1000ml ; completed from AM shift 16:50 Drug: NS 0.9% 1000 ml Route: IV; Rate: 1 bolus; Site: left antecubital; em 19:00 Follow up: Response: No adverse reaction; IV Status: Completed infusion; IV Intake: rr5 1000ml ; complaeted from AM shift 17:08 Drug: Pepcid 20 mg Route: IVP; Site: left antecubital; em 17:28 Drug: Ativan 1 mg Route: IVP; Site: left antecubital; em 17:50 Follow up: Response: No adverse reaction; Marked relief of symptoms; Anxiety decreased em 17:29 Drug: Cefepime 2 grams Route: IVPB; Rate: 200 ml/hr; Infused Over: 30 mins; Site: left em antecubital; 17:31 Drug: vancoMYCIN 1 grams Route: IVPB; Infused Over: 2 hrs; Site: left antecubital; em 17:31 Drug: vancoMYCIN 1 grams Route: IVPB; Infused Over: 2 hrs; Site: left antecubital; em 18:15 Not Given (Duplicate Order): Magnesium Sulfate 1 grams IVPB once over 1 hrs hemanth 18:32 Drug: Versed 4 mg Route: IVP; Site: right upper arm; aa5 19:30 Follow up: Response: RASS: Deep sedation (-4) rr5 18:33 Drug: Etomidate 20 mg Route: IVP; Site: right upper arm; aa5 19:30 Follow up: Response: No adverse reaction; RASS: Deep sedation (-4) rr5 18:34 Drug: Rocuronium 70 mg Route: IVP; Site: right upper arm; aa5 19:30 Follow up: Response: No adverse reaction; RASS: Deep sedation (-4) rr5 18:40 Drug: Sodium Bicarbonate 3 amp Route: IVP; Site: right upper arm; em 21:00 Follow up: Response: No adverse reaction; Other; trasnfer to ICU rr5 18:40 Drug: Magnesium Sulfate 1 grams Route: IVPB; Infused Over: 1 hrs; Site: right upper arm;em 19:30 Follow up: Response: No adverse reaction; IV Status: Completed infusion; IV Intake: rr5 100ml 19:30 Dru mg of (Zithromax 500 mg, NS 0.9% 250 ml) {Note: right femoral catheter.} rr5 Route: IVPB; Infused Over: 1 hrs; Site: Other; 20:30 Follow up: Response: No adverse reaction; IV Status: Completed infusion; IV Intake: rr5 250ml Disposition: 05/14/19 18:22 Hospitalization ordered by Steven Mitchell for Inpatient Admission. Preliminary diagnosis are Severe sepsis without septic shock, Acute kidney failure, Acidosis, Pneumonia due to other specified bacteria - moderate right upper lobe, Hypo-osmolality and hyponatremia, Hypomagnesemia, Elevated white blood cell count, Hypotension. - Bed requested for Intensive Care Unit. - Status is Inpatient Admission. rr5 - Condition is Guarded. - Problem is new. - Symptoms have improved. UTI on Admission? Yes Signatures: Dispatcher [employer] Charity Prater RN RN [email or web address] Lety Molina RN RN Haider Irizarry MD MD cha Munoz, Edgar, RN RN Evangelina Rao RN RN aa5 Mirlande Hou RN RN ss Roque, Raymond, RN RN rr5 Corrections: (The following items were deleted from the chart) 19:24 18:22 Hospitalization Ordered by Steven Mitchell for Inpatient Admission. Preliminary diagnosis is Severe sepsis without septic shock; Acute kidney failure; Acidosis; Pneumonia due to other specified bacteria - moderate right upper lobe; Hypo-osmolality and hyponatremia; Hypomagnesemia; Elevated white blood cell count. Bed requested for Intensive Care Unit. Status is Inpatient Admission. Condition is Guarded. Problem is new. Symptoms have improved. UTI on Admission? Yes. [facility] 19:34 19:24 05/14/2019 18:22 Hospitalization Ordered by Steven Mitchell for Inpatient [facility] Admission. Preliminary diagnosis is Severe sepsis without septic shock; Acute kidney failure; Acidosis; Pneumonia due to other specified bacteria - moderate right upper lobe; Hypo-osmolality and hyponatremia; Hypomagnesemia; Elevated white blood cell count. Bed requested for Intensive Care Unit. Status is Inpatient Admission. Condition is Guarded. Problem is new. Symptoms have improved. UTI on Admission? Yes. 21:20 19:34 05/14/2019 18:22 Hospitalization Ordered by Steven Mitchell for Inpatient rr5 Admission. Preliminary diagnosis is Severe sepsis without septic shock; Acute kidney failure; Acidosis; Pneumonia due to other specified bacteria - moderate right upper lobe; Hypo-osmolality and hyponatremia; Hypomagnesemia; Elevated white blood cell count; Hypotension. Bed requested for Intensive Care Unit. Status is Inpatient Admission. Condition is Guarded. Problem is new. Symptoms have improved. UTI on Admission? Yes. [facility]
[2019-05-14] MEDS ORDERED: MIDAZOLAM HCL 2 MG/2 ML INJ ONE (18:30)
[2019-05-14] MEDS ORDERED: RSI MEDICATION KIT IV ONE (18:30)
[2019-05-14] MEDS ORDERED: MIDAZOLAM HCL 100 MG in NA CHLORIDE 0.9% 80 ML IV PRN (18:52)
--- NOTE | 2019-05-14 18:52 | P.HP ---
Certification for Inpatient Patient admitted to: Inpatient With expected LOS: >2 Midnights Practitioner: I am a practitioner with admitting privileges, knowledge of patient current condition, hospital course, and medical plan of care. Services: Services provided to patient in accordance with Admission requirements found in Title 42 Section 412.3 of the Code of Federal Regulations Patient History Date of Service: 05/14/19 Reason for admission: Shortness of breath History of Present Illness: 58-year-old woman with a history of hypertension, diabetes mellitus and obstructive sleep apnea was brought to the emergency department looking very sick. Family reports patient has been progressively short of breath over the last 3 days. Her shortness of breath is preceded by 3 weeks of diarrhea and vomiting. According to the family patient has seen her PCP multiple times but because of the diarrhea and vomiting remain undiagnosed. Patient was in respiratory distress, she was placed on 100% non-rebreather mask. Blood work revealed severe metabolic acidosis with a bicarb of 10 and pH of 7.1. Blood chemistry also shows acute renal failure with a creatinine of 7 compared to a baseline of 0.9. BUN elevated to 116. Potassium is 3.9. She has leukocytosis, low-grade temperature. Chest x-ray report right upper lobe pneumonia. Patient could have aspirated during her vomiting episodes. She is critical ill. Metal Coater Operator Dr. Sevilla was contacted who recommended bicarb drip. Patient intubated for mechanical ventilation in the ED. The ED physician is also placing a femoral central line. Patient is admitted to ICU for further management. Allergies amoxicillin trihydrate [From Augmentin] Allergy (Unverified 10/01/14 23:19) Unknown ciprofloxacin [From Cipro] Allergy (Unverified 10/01/14 23:19) Unknown ciprofloxacin HCl [From Cipro] Allergy (Unverified 10/01/14 23:19) Unknown potassium clavulanate [From Augmentin] Allergy (Unverified 10/01/14 23:19) Unknown Tetracyclines Allergy (Unverified 10/01/14 23:19) Unknown Home Medications: Amlodipine Besylate 10 mg PO DAILY 10/29/14 Aspirin [Aspirin EC] 81 mg PO DAILY 10/29/14 Cholecalciferol (Vitamin D3) [Vitamin D 2,000 Unit Tab] 2,000 unit PO BID Desloratadine [Clarinex] 5 mg PO DAILY 10/29/14 Esomeprazole Magnesium [Nexium 24Hr] 40 mg PO DAILY 10/29/14 Metformin HCl [Glucophage] 1,000 mg PO BID 10/29/14 Metoprolol Succinate [Toprol Xl] 100 mg PO BID 10/29/14 Clonidine HCl [Catapres] 0.1 mg PO BID 05/14/19 Olmesartan/Hydrochlorothiazide [Olmesartan-Hctz 40-25 mg Tab] 1 each PO DAILY Pramipexole [Mirapex] 0.5 mg PO BEDTIME 05/14/19 acetaZOLAMIDE [Diamox] 250 mg PO BID 05/14/19 - Past Medical/Surgical History Diabetic: Yes -: Hypertenion -: GERD -: Sleep apnea -: Claustrophobia -: DM -: Tonsilectomy -: Cholecystectomy - Family History Family History: Reviewed- Non-Contributory - Social History Alcohol use: No Place of Residence: Home Review of Systems is unable to be obtained (Due to respiratory distress.) Physical Examination - Physical Exam General: Severe distress, Confused HEENT: Atraumatic, Other (Dry oral mucosa), Sclerae nonicteric Neck: Supple, JVD not distended Respiratory: Expiratory wheezes, Other (Labored breathing.) Cardiovascular: No edema, Regular rate/rhythm, Normal S1 S2 Capillary refill: <2 Seconds Gastrointestinal: Normal bowel sounds, Soft and benign, Non-distended, No tenderness Musculoskeletal: No swelling, No erythema Integumentary: No rashes, No tenderness/swelling Neurological: Normal strength at 5/5 x4 extr, Other (Confused.) - Studies Laboratory Data (last 24 hrs) 05/14/19 17:03: Uric Acid 22.5 H 05/14/19 16:51: PT 12.9 H, INR 1.10 05/14/19 16:51: WBC 17.2 H, Hgb 13.5, Hct 42.1, Plt Count 183 05/14/19 16:51: Sodium 121 L, Potassium 3.9, BUN 116 H, Creatinine 7.96 H*, Glucose 95, Magnesium 1.6 L, Total Bilirubin 0.4, AST 25, ALT 16, Alkaline Phosphatase 103, Lipase 280 Microbiology Data (last 24 hrs): 05/14/19 17:30 Nasopharnyx Influenza Type A Antigen Screen - Final 05/14/19 17:30 Nasopharnyx Influenza Type B Antigen Screen - Final Assessment and Plan - Problems (Diagnosis) (1) Metabolic acidosis Current Visit: Yes Status: Acute (2) Acute renal failure Current Visit: Yes Status: Acute (3) Chronic diarrhea Current Visit: Yes Status: Acute (4) Hyponatremia Current Visit: Yes Status: Acute (5) Sepsis Current Visit: Yes Status: Acute (6) Acute respiratory failure with hypoxia Current Visit: Yes Status: Acute (7) Diabetes mellitus Current Visit: No Status: Acute Qualifiers: Diabetes mellitus type: type 2 - Plan Admit to ICU. Aggressive IV fluid resuscitation Bicarb drip Monitor blood pressure closely Vasopressors as needed Serial ABG Q6 hrs Serial BMP Q6hrs Broad-spectrum IV antibiotics-IV cefepime, vancomycin and Flagyl Respiratory therapy Consult Mechanical ventilation Bronchodilators. Nephrology consult - Advance Directives Does patient have a Living Will: No Does patient have a Durable POA for Healthcare: No
[2019-05-14] MEDS ORDERED: SOD BICARB 150 MEQ in STERILE WATER 1000 ML IVBAG IV SCH (19:00)
[2019-05-14] MEDS ORDERED: AZITHROMYCIN IV 500 MG in NA CHLORIDE 0.9% 250 ML IVPB ONE (19:00)
--- NOTE | 2019-05-14 19:41 | RAD REPORT ---
EXAM DESCRIPTION: RAD - Chest Single View - 05/14/2019 7:32 pm CLINICAL HISTORY: ET TUBE PLACEMENT COMPARISON: Chest Single View dated 05/14/2019 TECHNIQUE: AP portable chest image was obtained 05/14/2019 7:32 pm . FINDINGS: Lungs are underinflated. Endotracheal tube is in place. Tip is mid aortic arch level 2 cm above the blake. Dense consolidation has developed in the left perihilar lung field. Right upper lob e opacification still present. Patchy opacities are present in each lung base. Both costophrenic angl es are blunted. Heart size is normal range. No pneumothorax. No acute bony abnormality seen. No acute aortic findings suspected. IMPRESSION: Endotracheal tube is in good position with the tip mid aortic arch level. Dense opacification has developed in the left perihilar region may reflect an aspiration pneumonia. Right upper lobe pneumonia is still present. Left lung field findings are potentially infectious pneu monia as well.
[2019-05-14 20:06] LABS: Urine Blood NEGATIVE (NEG); Urine Glucose NEGATIVE (NEG); Urine Protein 2+ (NEG)
[2019-05-14 20:18] LABS: Blood Gas Oxyhemoglobin 93.8 % (94-97); Blood O2 Saturation 95.1 % (92-98.5)
[2019-05-14] MEDS ORDERED: HYDROCORTISONE SUC 100 MG INJ IV ONE (21:41)
[2019-05-14] MEDS ORDERED: NOREPINEPHRINE 4mg/D5W 250mL 4 MG/250 ML BAG IV ONE (22:07)
[2019-05-14] MEDS ORDERED: WATER FOR INJ,STERILE 10 ML ONE (22:07)
[2019-05-14] MEDS: NOREPINEPHRINE 4 MG in D5W 250 ML IV PRN (22:10)
[2019-05-14] MEDS ORDERED: ACETAMINOPHEN 650MG/RECT SUPP RECT PRN (22:14)
[2019-05-14] MEDS: IPRATROPIUM BROM 0.5MG/2.5ML NEB SCH (22:14)
[2019-05-14] MEDS: ALBUTEROL 2.5 MG/3 ML NEB SOL NEB SCH ×2 (22:14)
[2019-05-14] MEDS ORDERED: ONDANSETRON 4 MG/2 ML VIAL IV PRN (22:14)
[2019-05-14] MEDS ORDERED: CEFEPIME 1 GM/VIAL IV SCH (22:14)
[2019-05-14] MEDS ORDERED: NA CHLORIDE 0.9% 1,000 ML IV ONE (22:47)
[2019-05-14 23:11] LABS: Arterial Blood Carboxyhemoglob 0.2 % (0-1.5); Blood Gas Oxyhemoglobin 88.5 % (94-97)
[2019-05-14 23:12] LABS: Potassium 3.3 mmol/L (3.5-5.1)
[2019-05-14 23:28] LABS: Urine Appearance CLOUDY; Urine Blood TRACE (NEG); Urine Color YELLOW; Urine Glucose NEGATIVE (NEG); Urine Protein 2+ (NEG); Urine Specific Gravity 1.025 (1.005-1.030); Urine Urobilinogen 0.2 mg/dL (0.2-1.0); Urine pH 5.5 (5.0-7.0)
[2019-05-14 23:35] LABS: Albumin 2.7 g/dL (3.4-5.0); Phosphorus 7.5 mg/dL (2.5-4.9); Potassium 3.3 mmol/L (3.5-5.1); Thyroid Stimulating Hormone 0.564 uIU/mL (0.360-3.740)
[2019-05-14 23:36] LABS: Barbiturates NEGATIVE (NEGATIVE); Benzodiazepines NEGATIVE (NEGATIVE); Cocaine NEGATIVE (NEGATIVE); METHAMPHETAM NEGATIVE (NEGATIVE); Methadone NEGATIVE (NEGATIVE); Opiates NEGATIVE (NEGATIVE); Phencyclidine NEGATIVE (NEGATIVE); THC Cannibis NEGATIVE (NEGATIVE)
[2019-05-14 23:38] LABS: Urine Bilirubin NEGATIVE (NEG); Urine Microscopic Reflex ORDER UMIC
[2019-05-14 23:42] LABS: Urine Bacteria >50 /HPF (<20)
[2019-05-14 23:43] LABS: Urine Amorphous Sediment 2+ /HPF (NONE SEEN); Urine Culture Reflex Order NOT NEEDED; Urine Mucus 2+ /HPF (NONE SEEN)
[2019-05-14] MEDS ORDERED: SODIUM BICARB 50 MEQ/50ML VIAL ONE (23:59)
[2019-05-15] MEDS ORDERED: D5W 1,000 ML IV ONE (00:37)
[2019-05-15] MEDS: METRONIDAZOLE 500mg IVPB 500 MG/100 ML BAG IV SCH ×3 (00:49→19:46)
[2019-05-15] MEDS: HEPARIN 5000 UNIT/ML 1 ML VIAL SQ SCH ×3 (00:49→19:53)
[2019-05-15] MEDS: IPRATROPIUM BROM 0.5MG/2.5ML NEB SCH ×5 (00:50→20:00)
[2019-05-15] MEDS ORDERED: D5W 1,000 ML with NA BICARB 8.4% 75 MEQ IV SCH ×2 (01:00)
[2019-05-15] MEDS: ALBUTEROL 2.5 MG/3 ML NEB SOL NEB SCH ×4 (01:34→20:00)
[2019-05-15 05:17] LABS: Arterial Blood Carboxyhemoglob 0.1 % (0-1.5); Blood Gas Oxyhemoglobin 86.6 % (94-97); Blood O2 Saturation 87.9 % (92-98.5)
--- NOTE | 2019-05-15 05:25 | EKG ---
Test Date: 2019-05-14 Test Time: 17:38:15 Air Bag Stripper: STEPHANIE MEASUREMENT RESULTS: Intervals: Rate: 80 [place]: 172 QRSD: 92 QT: 402 QTc: 463 [place]: P: 50 [place]: 172 QRS: 18 T: 45 INTERPRETIVE STATEMENTS: Normal sinus rhythm Low voltage QRS Nonspecific ST and T wave abnormality Abnormal ECG Compared to ECG 09/16/2018 12:37:24 Low QRS voltage now present ST (T wave) deviation now present Electronically Signed On 05-15-19 05:25:06 ED TRANSPORTER by Josué Carrera
[2019-05-15 05:30] LABS: Absolute Lymphocytes (CBC) 0.2 K/uL (0.7-4.9); Basophils % 0.2 % (0-1.3); Hematocrit 37.2 % (36.0-45.0); Lymphocytes % 1.7 % (15.3-44.8); MPV 9.1 fL (7.6-11.3); RBC Red Blood Cell Count 4.61 M/uL (3.86-4.86)
[2019-05-15] MEDS: INSULIN -REGULAR HUMAN 50 UNIT/0.5 ML ML SQ SCH ×4 (06:00→20:15)
[2019-05-15 06:39] LABS: Albumin 2.7 g/dL (3.4-5.0); Magnesium 1.7 mg/dL (1.8-2.4); Phosphorus 8.3 mg/dL (2.5-4.9); Potassium 3.4 mmol/L (3.5-5.1); Thyroid Stimulating Hormone 0.398 uIU/mL (0.360-3.740)
[2019-05-15] MEDS ORDERED: CALCIUM GLUC 10% INJ 4.65 MEQ in NA CHLORIDE 0.9% 100 ML IV ONE (06:54)
[2019-05-15] MEDS ORDERED: HYDROCORTISONE SUC 100 MG INJ IV ONE (06:56)
[2019-05-15] MEDS ORDERED: WATER FOR INJ,STERILE 10 ML IV SCH (07:00)
--- NOTE | 2019-05-15 07:37 | RAD REPORT ---
EXAM DESCRIPTION: RAD - Chest Single View - 05/15/2019 7:04 am CLINICAL HISTORY: vent COMPARISON: Chest Single View dated 05/14/2019 TECHNIQUE: AP portable chest image was obtained 05/15/2019 7:04 am . FINDINGS: Lung volumes remain low. Alveolar opacification in the left lung field has progressed sinc e prior day study. Right upper lobe pneumonia mildly progressive with stable right base opacification . No cavitation has developed. ET tube remains in good position. NG tube extends below the diaphragm. Heart size is normal. Vasculat ure is prominent. No pneumothorax or enlarging pleural effusion. No acute aortic findings suspected. IMPRESSION: Worsening aspiration or infectious pneumonia mid and lower left lung field since prior d ay imaging. Slight worsening of previously detailed right upper lobe pneumonia. ET tube and NG tube remain in good position.
[2019-05-15] MEDS: NOREPINEPHRINE 4 MG in D5W 250 ML IV PRN ×2 (07:56→10:31)
[2019-05-15] MEDS ORDERED: Meropenem 500 MG in NA CHLORIDE 0.9% 100 ML IV SCH (08:00)
--- NOTE | 2019-05-15 08:13 | P.CNS ---
Date of Consult: 05/15/19 Reason for Consult: Respiratory failure shock Chief Complaint: Respiratory failure and shock History of Present Illness: Patient is 58 years of age multiple medical problems has been sick for the past 3 weeks history obtained from sister who is lives out of town daughter is also present at the bedside been having profuse diarrhea diffuse to go and see the doctor patient has COPD is an active smoker he Val treated for CSF leak which was apparently repaired came in with shock pneumonia acute renal failure no prior history of cardiopulmonary problems apart from COPD also has sleep apnea patient has refractory hypotension as 100% oxygen acidotic Allergies amoxicillin trihydrate [From Augmentin] Allergy (Unverified 10/01/14 23:19) Unknown ciprofloxacin [From Cipro] Allergy (Unverified 10/01/14 23:19) Unknown ciprofloxacin HCl [From Cipro] Allergy (Unverified 10/01/14 23:19) Unknown potassium clavulanate [From Augmentin] Allergy (Unverified 10/01/14 23:19) Unknown Tetracyclines Allergy (Unverified 10/01/14 23:19) Unknown Home Medications: Amlodipine Besylate 10 mg PO DAILY 10/29/14 Aspirin [Aspirin EC] 81 mg PO DAILY 10/29/14 Cholecalciferol (Vitamin D3) [Vitamin D 2,000 Unit Tab] 2,000 unit PO BID Desloratadine [Clarinex] 5 mg PO DAILY 10/29/14 Esomeprazole Magnesium [Nexium 24Hr] 40 mg PO DAILY 10/29/14 Metformin HCl [Glucophage] 1,000 mg PO BID 10/29/14 Metoprolol Succinate [Toprol Xl] 100 mg PO BID 10/29/14 Clonidine HCl [Catapres] 0.1 mg PO BID 05/14/19 Olmesartan/Hydrochlorothiazide [Olmesartan-Hctz 40-25 mg Tab] 1 each PO DAILY Pramipexole [Mirapex] 0.5 mg PO BEDTIME 05/14/19 acetaZOLAMIDE [Diamox] 250 mg PO BID 05/14/19 - Past Medical/Surgical History Diabetic: Yes -: Hypertenion -: GERD -: Sleep apnea -: Claustrophobia -: DM -: morbid obesity -: lymphedema -: Tonsilectomy -: Cholecystectomy - Social History Alcohol use: No Place of Residence: Home Review of Systems is unable to be obtained Physical Examination Temp Pulse Resp BP Pulse Ox 96.3 F L 90 21 H 89/53 L 89 L 05/15/19 04:00 05/15/19 06:45 05/15/19 06:45 05/15/19 06:45 05/15/19 06:45 General: Unresponsive Respiratory: Expiratory wheezes Cardiovascular: No edema, Regular rate/rhythm Gastrointestinal: Normal bowel sounds, Hypoactive Musculoskeletal: No clubbing Integumentary: No rashes, No breakdown Laboratory Data (last 24 hrs) 05/14/19 17:03: Uric Acid 22.5 H 05/14/19 16:51: PT 12.9 H, INR 1.10 05/14/19 16:51: WBC 17.2 H, Hgb 13.5, Hct 42.1, Plt Count 183 05/14/19 16:51: Sodium 121 L, Potassium 3.9, BUN 116 H, Creatinine 7.96 H*, Glucose 95, Magnesium 1.6 L, Total Bilirubin 0.4, AST 25, ALT 16, Alkaline Phosphatase 103, Lipase 280 - Problems (1) Shock Current Visit: Yes Status: Acute Plan: Patient is 58 years of age admitted with pneumonia very impressive on the left side on the chest x-ray acute renal failure white count is elevated acute renal failure cultures pending sputum cultures ordered patient has history of COPD continue with bronchodilators continue with IV steroids patient is acidotic on a bicarb drip patient has an anion gap metabolic acidosis has also does also have COPD baseline functioning is very poor recently treated for a CSF leak was scheduled to have a shunt put in medical clearance was denied Critical Care: Yes (60)
[2019-05-15] MEDS: D5W 1,000 ML with NA BICARB 8.4% 75 MEQ IV SCH ×4 (08:28→19:13)
[2019-05-15] MEDS: HYDROCORTISONE SUC 100 MG INJ IV SCH ×2 (08:34→20:55)
--- NOTE | 2019-05-15 08:37 | P.PN ---
Subjective Date of Service: 05/14/19 Patient remains with severe metabolic acidosis. We have given 3 amps of sodium bicarb. Patient is on a bicarb drip as well. Her repeat ABGs did show some worsening of her acidosis. She was intubated prior to this and her respiratory rate probably decreased to 16. Will go ahead and increase the ventilator rate to 28. Will repeat ABGs. Will get pulmonary critical care consultation. Will also need Nephrology to evaluate the patient as patient may need hemodialysis. Spoke with family and made them aware that patient's prognosis is very poor. Chest x-ray does show a pneumonia. On broad-spectrum antibiotic coverage. Review of Systems is unable to be obtained (Intubated and sedated) Physical Examination - Vital Signs Temperature: 96.3 F Blood Pressure: 89/53 Pulse: 90 Respirations: 21 Pulse Ox (%): 89 - Physical Exam General: Unresponsive, Other (Intubated and sedated) Respiratory: Diminished, Crackles/rales, Expiratory wheezes Cardiovascular: Regular rate/rhythm, Normal S1 S2, Systolic murmur Gastrointestinal: Normal bowel sounds, Soft and benign, Non-distended, No tenderness Musculoskeletal: No clubbing, No swelling, No contractures - Studies Laboratory Data (last 24 hrs) 05/14/19 17:03: Uric Acid 22.5 H 05/14/19 16:51: PT 12.9 H, INR 1.10 05/14/19 16:51: WBC 17.2 H, Hgb 13.5, Hct 42.1, Plt Count 183 05/14/19 16:51: Sodium 121 L, Potassium 3.9, BUN 116 H, Creatinine 7.96 H*, Glucose 95, Magnesium 1.6 L, Total Bilirubin 0.4, AST 25, ALT 16, Alkaline Phosphatase 103, Lipase 280 Microbiology Data (last 24 hrs): 05/14/19 17:30 Nasopharnyx Influenza Type A Antigen Screen - Final 05/14/19 17:30 Nasopharnyx Influenza Type B Antigen Screen - Final Assessment & Plan - Problems (Diagnosis) (1) Respiratory failure requiring intubation Current Visit: Yes Status: Acute (2) Intractable nausea and vomiting Current Visit: Yes Status: Acute (3) Diarrhea Current Visit: Yes Status: Acute (4) High anion gap metabolic acidosis Current Visit: Yes Status: Acute (5) Diabetes mellitus Current Visit: No Status: Acute Qualifiers: Diabetes mellitus type: type 2 (6) Hypertension Current Visit: No Status: Acute Qualifiers: Hypertension type: essential hypertension Qualified Code(s): I10 - Essential (primary) hypertension (7) Lymphedema Current Visit: No Status: Acute - Plan Plan: 1. Broad-spectrum antibiotic coverage 2. Bicarb drip 3. Nephrology consultation for possible hemodialysis 4. IV hydration 5. Ventilator support-increase respiratory rate and tidal volume 6. Surgery consultation 7. Nebs, steroids, and continue antibiotics as above 8. GI and DVT prophylaxis Discharge Plan: Home Plan to discharge in: Greater than 2 days - Advance Directives Does patient have a Living Will: Yes Does patient have a Durable POA for Healthcare: Yes - Code Status/Comfort Care Code Status Assessed: Yes Code Status: Full Code Critical Care: Yes Time Spent Managing PTS Care (In Minutes): 120
[2019-05-15] MEDS ORDERED: Meropenem 500 MG VIAL IV SCH (09:00)
[2019-05-15] MEDS ORDERED: HEPARIN 5000 UNIT/ML 1 ML VIAL ONE (09:13)
[2019-05-15 09:23] LABS: Rheumatoid Factor NEG (NEG)
--- NOTE | 2019-05-15 09:42 | P.OP ---
Preoperative diagnosis: Aucte renal failure Postoperative diagnosis: Aucte renal failure Primary procedure: Placement of temporary LEFT femoral hemodialysis catheter Secondary procedure: ultasound and microintroducer used Anesthesia: Local 1% lidocaine Estimated blood loss: <10cc Specimen: none Findings: dark, non-pulsatile blood returned Complications: None Transferred to: ICU Condition: Critical
--- NOTE | 2019-05-15 10:19 | RAD REPORT ---
EXAM DESCRIPTION: CT - Head C Spine Cap Wo Con - 05/14/2019 9:15 pm CLINICAL HISTORY: Pain; Swelling TECHNIQUE: Contiguous axial CT images obtained through the brain without IV contrast. Coronal and sa gittal reformatted images were provided. This exam was performed according to our departmental dose-optimization program, which includes autom ated exposure control, adjustment of the mA and/or kV according to patient size and/or use of iterati ve reconstruction technique. COMPARISON: None available for comparison FINDINGS: Brain: No significant white matter changes. No focal mass effect. Granda-white matter differ entiation is within normal limits. No hemorrhage. Ventricles: No ventriculomegaly or midline shift. Extra-axial spaces: No extra-axial collection or hemorrhage. Paranasal sinuses and mastoid air cells: Postsurgical changes of the paranasal sinuses on the left. M ild to moderate left maxillary and sphenoid sinus mucosal thickening. Left sphenoid sinus Bilateral m astoid air cell and right middle ear opacification. Vessels: There is atherosclerotic disease of the internal carotid arteries bilaterally. Bones: Unremarkable Soft tissues: Unremarkable IMPRESSION: 1. No acute intracranial or extra-axial abnormality. 2. Right otomastoiditis and left mastoiditis. 3. Other findings as above. EXAM DESCRIPTION: C Spine Wo Con CLINICAL HISTORY: Pain; Swelling TECHNIQUE: Contiguous axial CT images obtained through the cervical spine without IV contrast. Coron al and sagittal reformatted images also provided. This exam was performed according to our departmental dose-optimization program, which includes autom ated exposure control, adjustment of the mA and/or kV according to patient size and/or use of iterati ve reconstruction technique. COMPARISON: None available for comparison FINDINGS: Vertebra: No acute fracture or subluxation. Disc spaces: Multilevel degenerative changes manifested by moderate to severe disc degeneration with endplate changes and prominent concentric disc osteophytes most pronounced at C5-C6 and C6-C7. The ce ntral thecal sac is mildly narrowed at these levels. Foraminal narrowing most pronounced on the left at C5-C6. Prevertebral soft tissues: Unremarkable IMPRESSION: No acute injury. EXAM DESCRIPTION: Chest Wo Con CLINICAL HISTORY: Pain; swelling TECHNIQUE: Contiguous axial images obtained through the chest without IV contrast. Coronal and sagit gisella reformatted images provided. This exam was performed according to our departmental dose-optimization program, which includes autom ated exposure control, adjustment of the mA and/or kV according to patient size and/or use of iterati ve reconstruction technique. COMPARISON: No prior exams provided for comparison. FINDINGS: Limitations: Technically limited secondary to body habitus, patient arm positioning and un enhanced technique. Lungs: Left greater than right perihilar and basilar consolidation with air bronchograms. Bilateral u pper lobe, right middle lobe and lingular groundglass opacities. Endotracheal tube terminates. Airway s are patent. Pleura: Possible small bilateral pleural effusions. No pneumothorax. Heart and pericardium: The heart is enlarged. Coronary artery calcification. No pericardial effusion. Mediastinum and deja: No pathologically enlarged lymph nodes. Lower neck and chest wall: Asymmetric enlargement of the left lobe of the thyroid. Vessels: Mild atherosclerotic disease. No thoracic aortic aneurysm. Bones: Multilevel spondylosis. Remote T11 and T12 compression deformities. IMPRESSION: 1. Multifocal infiltrates, left greater than right. Possible small bilateral pleural e ffusions. 2. Asymmetric enlargement of the left lobe of the thyroid. Recommend follow-up ultrasound. Referenc e: ACR White Paper - Managing Incidental Thyroid Nodules 2014. 3. Other findings as above. EXAM DESCRIPTION: A/P Wo Con CLINICAL HISTORY: Pain; swelling TECHNIQUE: Contiguous axial images obtained through the abdomen and pelvis without IV contrast. Nagi nal and sagittal reformatted images were provided. This exam was performed according to our departmental dose-optimization program, which includes autom ated exposure control, adjustment of the mA and/or kV according to patient size and/or use of iterati ve reconstruction technique. COMPARISON: None available for comparison. FINDINGS: Limitations: Technically limited secondary to body habitus, patient arm positioning and un enhanced technique. Liver: Grossly unremarkable Gallbladder and biliary system: Prior cholecystectomy. Pancreas: Grossly unremarkable Spleen: Grossly unremarkable Adrenals: Bilateral adrenal nodularity. Dominant 1.9 cm low density right adrenal nodule compatible w ith a benign adenoma. Kidneys: No calculi. No hydronephrosis. Bowel: No obstruction. No appreciable mucosal thickening. Appendix: Normal caliber appendix. No findings to suggest acute appendicitis. Urinary bladder: Decompressed around a Najera catheter balloon. Reproductive: Unremarkable as visualized Lymph nodes: No pathologically enlarged lymph nodes. Peritoneum: No focal fluid collection. No free air. Vessels: Mild atherosclerotic disease. No abdominal aortic aneurysm. Right femoral central venous cat heter tip. Abdominal wall: Small fat-containing umbilical hernia. Bones: Multilevel spondylosis. No acute fracture. IMPRESSION: 1. No acute abnormality identified within the abdomen and pelvis. 2. Other findings as above. Electronically signed by: Ravin Disla MD 05/14/2019 9:52 PM SOFTWARE ENGINEERING ASSOCIATE MANAGER Due to temporary technical issues with the PACS/Fluency reporting system, reports are being signed by the in house radiologist as a courtesy to ensure prompt reporting. The interpreting radiologist is f ully responsible for the content of the report.
[2019-05-15 12:02] LABS: Albumin 2.5 g/dL (3.4-5.0); Bilirubin Total 0.4 mg/dL (0.2-1.0); Protein, Total 5.3 g/dL (6.4-8.2)
[2019-05-15 12:04] LABS: Potassium 2.9 mmol/L (3.5-5.1)
--- NOTE | 2019-05-15 12:09 | RAD REPORT ---
EXAM DESCRIPTION: US - Renal Ultrasound-Complete - 05/15/2019 11:48 am CLINICAL HISTORY: Acute renal insufficiency COMPARISON: None. FINDINGS: The right kidney measures 12 cm with an increased echotexture. The left kidney measures 12 cm with an increased echotexture. Hydronephrosis is not seen. A Najera catheter is present within a collapsed bladder. No gross abnormal ity of bladder is seen IMPRESSION: Mildly increased renal echotexture consistent with parenchymal disease
[2019-05-15] MEDS: FENTANYL CITR 100 MCG/2 ML IV PRN ×4 (12:39→20:55)
[2019-05-15 12:42] LABS: Arterial Blood Carboxyhemoglob 0.6 % (0-1.5); Blood Gas Oxyhemoglobin 91.5 % (94-97); Blood O2 Saturation 93.3 % (92-98.5)
--- NOTE | 2019-05-15 12:44 | P.PN ---
Subjective Date of Service: 05/15/19 Chief Complaint: Respiratory failure and shock Patient remain unresponsive, hypotensive and requiring 2 vasopressors. She is still acidotic with pH of 7.09 despite multiple bicarb IV pushes plus bicarb drip. Vent settings have been changed to pressure control, now on FiO2 52% and saturating at 92%. Urine output is gradually improving. She has been afebrile. Leukocytosis is improving, serum creatinine is also trending down. No diarrhea since hospitalization. Chest x-ray reveal worse pneumonia. Physical Examination - Vital Signs Temperature: 96.3 F Blood Pressure: 118/61 Pulse: 104 Respirations: 25 Pulse Ox (%): 93 - Physical Exam General: Unresponsive HEENT: Other (Intubated and on mechanical ventilation) Neck: Supple, JVD not distended Respiratory: Expiratory wheezes (Bilateral upper airway transmitted sounds) Cardiovascular: No edema, Other (Regular rhythm, tachycardic) Gastrointestinal: Normal bowel sounds, Soft and benign, Non-distended, No tenderness Musculoskeletal: No erythema Integumentary: No rashes Neurological: Other (Unresponsive, opens eyes sternal rub.) Urinary: Other (Najera catheter) - Studies Laboratory Data (last 24 hrs) 05/14/19 17:03: Uric Acid 22.5 H 05/14/19 16:51: PT 12.9 H, INR 1.10 05/14/19 16:51: WBC 17.2 H, Hgb 13.5, Hct 42.1, Plt Count 183 05/14/19 16:51: Sodium 121 L, Potassium 3.9, BUN 116 H, Creatinine 7.96 H*, Glucose 95, Magnesium 1.6 L, Total Bilirubin 0.4, AST 25, ALT 16, Alkaline Phosphatase 103, Lipase 280 Microbiology Data (last 24 hrs): 05/14/19 17:30 Nasopharnyx Influenza Type A Antigen Screen - Final 05/14/19 17:30 Nasopharnyx Influenza Type B Antigen Screen - Final Assessment And Plan - Current Problems (Diagnosis) (1) Metabolic acidosis Current Visit: Yes Status: Acute (2) Septic shock Current Visit: Yes Status: Acute (3) Acute renal failure Current Visit: Yes Status: Acute (4) Chronic diarrhea Current Visit: Yes Status: Acute (5) Hyponatremia Current Visit: Yes Status: Acute (6) Sepsis Current Visit: Yes Status: Acute (7) Acute respiratory failure with hypoxia Current Visit: Yes Status: Acute (8) Diabetes mellitus Current Visit: No Status: Acute Qualifiers: Diabetes mellitus type: type 2 (9) Pneumonia Current Visit: Yes Status: Acute - Plan Continue bicarb drip. Intermitted IV normal saline boluses Continue IV antibiotics Continue vasopressor and wean as tolerated. Pulmonary input appreciated. Serial ABG Serial BMP Broad-spectrum IV antibiotics-IV cefepime, vancomycin and Flagyl Mechanical ventilation Sedation as needed with intermittent IV midazolam Bronchodilators. Nephrology input appreciated. Temporary dialysis catheter placed for dialysis. Nephrology is planning dialysis today. Monitor urine output.
[2019-05-15] MEDS: NOREPINEPHRINE 8 MG in Dextrose 5%-Water 500 ML IV PRN ×2 (13:19→19:04)
[2019-05-15] MEDS: KCL 20 MEQ/100 mL IVPB 20 MEQ/100 ML BAG IV SCH ×5 (13:25→20:40)
[2019-05-15] MEDS: LORazepam 2 MG/ML VIAL IV PRN ×4 (14:27→22:30)
[2019-05-15 14:41] LABS: Urine Appearance CLEAR; Urine Bilirubin NEGATIVE (NEG); Urine Blood 1+ (NEG); Urine Color YELLOW; Urine Glucose NEGATIVE (NEG); Urine Protein TRACE (NEG); Urine Urobilinogen 0.2 mg/dL (0.2-1.0); Urine pH 5.5 (5.0-7.0)
[2019-05-15 14:50] LABS: Urine Protein/Creatinine Ratio 0.65 ratio (<0.15)
[2019-05-15] MEDS ORDERED: ETOMIDATE 20 MG/10 ML VIAL IV ONE (14:50)
[2019-05-15] MEDS ORDERED: ROCURONIUM 50 MG/5 ML VIAL IV ONE (14:50)
[2019-05-15 15:17] LABS: Urine Microscopic Reflex ORDER UMIC
[2019-05-15 15:33] LABS: Urine Bacteria <20 /HPF (<20); Urine Culture Reflex Order NOT NEEDED; Urine RBC <5 /HPF (NONE SEEN)
[2019-05-15] MEDS ORDERED: MANNITOL 25% 12.5 GM/50 ML VIAL IV PRN (16:20)
[2019-05-15] MEDS ORDERED: NA CHLORIDE 0.9% 1,000 ML IV PRN (16:20)
[2019-05-15] MEDS: ALBUMIN HUMAN 25% 50 ML IV SCH ×2 (16:44→16:47)
[2019-05-15] MEDS ORDERED: NA CHLORIDE 0.9% 1,000 ML IV ONE (17:00)
[2019-05-15 17:04] LABS: Potassium 2.9 mmol/L (3.5-5.1)
[2019-05-15] MEDS ORDERED: CEFAZOLIN/SWI 1gm 1 GM/10 ML SYR IV SCH (18:00)
[2019-05-15] MEDS ORDERED: CEFEPIME 1 GM in NA CHLORIDE 0.9% 100 ML IV SCH (18:00)
[2019-05-15] MEDS: CEFEPIME/SWI 1gm 10 ML IV SCH (19:45)
[2019-05-15] MEDS: WATER FOR INJ,STERILE 10 ML IV SCH (20:55)
--- NOTE | 2019-05-15 23:09 | OP ---
Date of Procedure: 05/15/2019 Surgeon: Chuy Kaye MD, Preoperative Diagnosis: Acute renal failure. Postoperative Diagnosis: Acute renal failure. Procedure Performed: Placement of a temporary left femoral hemodialysis catheter. Secondary procedure: Ultrasound and microintroducer use. Anesthesia: Local 1% lidocaine without epinephrine. Estimated Blood Loss: Less than 10 mL. Specimen: None. Findings: Dark nonpulsatile blood return. Complications: None. Condition: The patient remained in the ICU in critical condition. Procedure In Detail: After informed consent was obtained from patient's spouse/ at the [facility], I prepped and draped the patient in the usual sterile fashion. After adequate anesthesia was achi eved, I used ultrasound guidance and micro introducer set to cannulate the left femoral vein on the f irst attempt. Dark red nonpulsatile blood was returned. The micro wire was advanced easily without evidence of complication. A small ana incision was made and the microintroducer sheath was advanced easily and the micro wire out was called at this point. The introducer sheath was then decannulated and the standard wire was passed through the outer sheath of the microintroducer set after dark nonp ulsatile blood was returned. The introducer sheath was removed in entirety at this point and sequent ial dilatation was performed using Seldinger technique and the standard catheter after being appropri ately flushed with saline was placed in using Seldinger technique over the standard wire. After the catheter was placed, the standard wire was removed and wire out called. At this point, dark red non- pulsatile blood was returned through all ports and all ports were flushed with saline until completel y clear and capped at this point. The catheter was then secured to the skin with the included 2-0 ny loren suture and a sterile dressing was placed over top. The patient tolerated procedure well without evidence of complication, remained in the ICU in critical condition. All counts were correct at the end the case. The patient will receive emergent hemodialysis at this point. All counts were correct at end of the case. TK/MODL Voice ID: [id number] Report ID: [id number]
--- NOTE | 2019-05-15 23:51 | CON ---
Date of Consultation: 05/15/2019 Chief Complaint: Acute kidney injury, severe, borderline oliguric associated with sepsis, septic shock, lactic acidosis and respiratory failure. Patient is intubated for severe respiratory failure with hypoxemia. She has refractory hypotension and she is on 100% oxygen. She remains acidotic. She was treated with IV bicarbonate drip and received IV bicarbonate and bolus. The patient came to the hospital complaining of 3 weeks history of diarrhea, weakness. She has history of COPD and she is active smoker. She came with septic shock, pneumonia, and severe acute kidney failure. Prior history includes COPD, sleep apnea. Review of Systems: Unobtainable, the patient is in ICU. She is intubated, on multiple pressors. Past Medical History: Diabetes mellitus, hypertension, sleep apnea, GERD, COPD , lymphedema, morbid obesity, tonsillectomy, cholecystectomy, claustrophobia. Social History: No alcohol. History of tobacco. Family History: No kidney disease in the family. Physical Examination: General: Patient is responsive to voice. Eyes: Anicteric sclerae. No hemorrhagic changes. Ears, Nose, mouth and Throat: Oral mucosa moist. No bleeding. Neck: Supple. No bruits. Lungs: Coarse breath sound bilaterally. Heart: S1, S2. No pericardial, friction rub. Abdomen: Soft, benign, nontender. Bowel sounds present. Extremities: Edema present in both legs. Neurological: Moving extremities. No tremor. Psychiatric: Unobtainable, the patient is intubated. Vital signs: Blood pressure 89/53, pulse oximeter 89, heart rate 90, temperature 96.3. Laboratory Data: WBC 17.2, hemoglobin 13.5, hematocrit 42.1, platelet count 193 ,000. Sodium 121, potassium 3.9, BUN 116, creatinine 7.96, glucose 95, magnesium 1.6, lipase 280. Impression And Plan: Patient is a 58-year-old woman admitted with pneumonia, left-sided on the chest x-ray with severe white count and septic shock with severe renal hypoperfusion leading to acute kidney injury with acute tubular necrosis. Renal ultrasound showed some features of chronic kidney disease. Patient has history of diabetes. Patient was taking metformin. Currently, she is on bicarbonate drip for metabolic acidosis, likely related to multiple causes including septic shock as well as possible effect of metformin. Patient will have stat dialysis to control metabolic acidosis. Obtain metabolic clearance. Patient will have IV fluids for blood pressure support. Patient will continue pressors and IV albumin will be used. Hypomagnesemia, replacement as needed. Metabolic acidosis. Continue bicarbonate drip and plan is to start dialysis and continue pressor for blood pressure support during dialysis. Sepsis, pending culture results. Continue broad-spectrum antibiotic adjust dose to renal function. Diarrhea. Pending workup for Clostridium difficile colitis and infected diarrhea. EB/MODL Voice ID: [id number] Report ID: [id number] MTDD
[2019-05-16 00:11] LABS: Potassium 3.2 mmol/L (3.5-5.1)
[2019-05-16] MEDS: FENTANYL CITR 100 MCG/2 ML IV PRN ×5 (01:00→18:29)
[2019-05-16] MEDS: ALBUTEROL 2.5 MG/3 ML NEB SOL NEB SCH ×4 (01:25→20:00)
[2019-05-16] MEDS: IPRATROPIUM BROM 0.5MG/2.5ML NEB SCH ×4 (01:25→20:07)
[2019-05-16] MEDS: LORazepam 2 MG/ML VIAL IV PRN ×6 (01:30→20:10)
[2019-05-16] MEDS: NOREPINEPHRINE 8 MG in Dextrose 5%-Water 500 ML IV PRN (02:07)
[2019-05-16] MEDS: INSULIN -REGULAR HUMAN 50 UNIT/0.5 ML ML SQ SCH ×4 (02:09→17:47)
[2019-05-16] MEDS: HEPARIN 5000 UNIT/ML 1 ML VIAL SQ SCH ×3 (02:10→17:01)
[2019-05-16] MEDS: METRONIDAZOLE 500mg IVPB 500 MG/100 ML BAG IV SCH ×2 (02:10→08:03)
[2019-05-16] MEDS: KCL 20 MEQ/100 mL IVPB 20 MEQ/100 ML BAG IV SCH ×4 (02:30→14:38)
[2019-05-16 05:24] LABS: Albumin 2.5 g/dL (3.4-5.0); Potassium 3.1 mmol/L (3.5-5.1)
[2019-05-16] MEDS ORDERED: POTASSIUM PHOS IN 0.9 % NACL 15 MMOL/250 ML BAG IV ONE ×3 (05:33→12:16)
[2019-05-16] MEDS: D5W 1,000 ML with NA BICARB 8.4% 75 MEQ IV SCH ×4 (05:50→19:04)
[2019-05-16] MEDS ORDERED: VANCOMYCIN/NS 1 gm 1 GM/250 ML BAG IV SCH ×2 (07:45→09:00)
[2019-05-16] MEDS: HYDROCORTISONE SUC 100 MG INJ IV SCH ×2 (08:00→19:49)
[2019-05-16] MEDS: WATER FOR INJ,STERILE 10 ML IV SCH (08:01)
--- NOTE | 2019-05-16 08:15 | P.PN ---
Subjective Date of Service: 05/16/19 Chief Complaint: Respiratory failure and shock Patient's condition is stable wean off Anthony-Synephrine currently on Levophed still hypotensive copious secretions agitated Review of Systems is unable to be obtained Physical Examination - Vital Signs Temperature: 97.9 F Blood Pressure: 102/64 Pulse: 105 Respirations: 13 Pulse Ox (%): 94 - Physical Exam General: Unresponsive Neck: Supple Respiratory: Crackles/rales (Crackles on the left side) Cardiovascular: No edema, Normal S1 S2 Gastrointestinal: Normal bowel sounds, Soft and benign - Studies Microbiology Data (last 24 hrs): 05/14/19 17:03 Blood - Blood Gram Stain - Final Assessment & Plan - Problems (Diagnosis) (1) Shock Current Visit: Yes Status: Acute Plan: . Patient admitted with stitched shock pneumonia respiratory failure renal failure oxygenation satisfactory at 50% patient is on a bicarb drip chest x- rays pending renal function is improving hypernatremic hypokalemic culture results pending continue with present therapy start on low-dose tube feeds tomorrow
--- NOTE | 2019-05-16 08:39 | RAD REPORT ---
EXAM DESCRIPTION: RAD - Chest Single View - 05/16/2019 8:23 am CLINICAL HISTORY: F/U Chest pain. COMPARISON: Chest Single View dated 05/15/2019; Chest Single View dated 05/14/2019; Chest Single View [place] 05/14/2019; Chest Pa And Lat (2 Views) dated 11/15/2018 FINDINGS: Portable technique limits examination quality. Bilateral pulmonary opacities are again noted, slightly greater on the right relative to prior study. The left mid lung lung infiltrate appears improved since prior study. Tip of the ET tube is above th e blake. Enteric tube descends in the stomach.
[2019-05-16] MEDS ORDERED: FUROSEMIDE 40 MG in NA CHLORIDE 0.9% 50 ML IV ONE (10:30)
[2019-05-16] MEDS: PARICALCITOL 2 MCG/ML VIAL IV SCH (11:15)
[2019-05-16 12:08] LABS: Phosphorus 1.4 mg/dL (2.5-4.9)
[2019-05-16 12:10] LABS: Potassium 3.1 mmol/L (3.5-5.1)
[2019-05-16] MEDS ORDERED: MAGNESIUM 50% 3 GM in NA CHLORIDE 0.9% 100 ML IV ONE (12:18)
--- NOTE | 2019-05-16 12:53 | RAD REPORT ---
EXAM DESCRIPTION: US - Thyroid Para Parotid Gland - 05/16/2019 12:35 pm CLINICAL HISTORY: enlarged left lobe thyroid, abnormal CT study COMPARISON: Head C Spine Cap Wo Con dated 05/14/2019; Chest For Pe Angio dated 09/16/2018 FINDINGS: Exam is limited. Patient is intubated and unresponsive. This limited ability to evaluate t he thyroid gland. Right lobe appears normal in size with homogeneous echogenicity. No right-side thyroid nodule identif iable. An enlarged heterogeneous predominantly solid 3.1 centimeter left-side thyroid nodule is present. Thi s is the correlate to the CT finding. IMPRESSION: Limited thyroid sonography shows 3.1 centimeter left solid nodule. This is not grossly d ifferent from limited comparison September 2018 CT study. Ultrasound-guided fine-needle aspiration could be performed of the left nodule at a time when the pat ient is alert, able to give consent and able to cooperate with the examination.
[2019-05-16] MEDS: AZITHROMYCIN IV 500 MG in NA CHLORIDE 0.9% 250 ML IVPB SCH (14:02)
--- NOTE | 2019-05-16 14:58 | PN ---
Date of Progress Note: 05/16/2019 Subjective: The patient was admitted with severe acidosis, acute kidney injury, septic shock with hy ponatremia and hypokalemia. According to the history, patient apparently pain, having diarrhea for t he last 4-5 week, had been following with the physician try to find out. Patient came to the [facility] with these symptoms. Primary workup show severe acidosis, fail on bicarb drip and bicarb bolus wit h septic shock. For that reason, patient was initiated on dialysis yesterday, received 1 session of dialysis with low pump speed, acidosis has been corrected, hyponatremia stabilized. Patient still on vent. The patient today started having urine output. Physical Examination: Vital Signs: Blood pressure 102/64, pulse of 101, afebrile. The patient had urine output of 2400 ov er the night. Chest: Crackles, more prominent left side. Heart: S1, S2. Tachycardic. Abdomen: Soft, nontender. Extremities: Trace edema. Laboratory Data: WBC 14.7, H and H 12/37.2, platelets of 143. Sodium 130, potassium 3.1, bicarb 23, BUN 59, creatinine 2.8. This is after dialysis yesterday. GFR of 17, glucose 234, calcium 7.5, jose sphorous 1. Albumin 2.8. Corrected calcium 10.7, PTH 102, cortisol 113. TSH 0.3. Serum osmolality 300. Urine analysis; specific gravity 1.010, negative for infection. PC ratio 0.6. Urine drug scr een was negative. Vancomycin trough of 13. Salicylate 4.2, acetone of small, currently negative. S erology has been sent. Osmolality gap only 12 upon presentation. Chest x-ray interstitial infiltration bilateral. Current Medications: The patient on its include cefepime, metronidazole, vancomycin, Levophed, sodiu m bicarb on half normal, hydrocortisone 100 b.i.d. Assessment And Plan: 1.Acute kidney injury secondary to poor perfusion acute tubular necrosis, septic shock, toxic acute tubular necrosis, nonoliguric . I am going to with severe acidosis. I am going to skip dialysis tod ay. We will arrange for dialysis tomorrow and I am going to give the patient gentle dose of Lasix an d we will follow up. 2.Acidosis, high anion gap, multifactorial secondary to lactic acidosis, poor perfusion, superimpose d with metformin, questionable infection process, status post dialysis yesterday, bicarb has been cor rected. Currently, I am going to continue sodium bicarb. Hopefully tomorrow after the session of di allianne, we will be able to stop. 3.Hyponatremia secondary to depletional/adrenal insufficiency. Patient was started on hydrocortison e, currently appropriate correction. I am going to continue current treatment. 4.Septic shock/hypovolemic shock secondary to gastrointestinal loss. Continue current supportive tr eatment. 5.Respiratory failure with severe acidosis, combined hypercapnic and hypoxemic. Continue vent suppo rt. Follow up with Pulmonary. 6.Secondary hyperparathyroidism with the presence of hypocalcemia. I am going to start the patient on Zemplar and we will follow up. 7.Hypophosphatemia secondary to malnourished, chronic diarrhea, oil supplement. 8.Hypokalemia and hypophosphatemia. We will supplement. 9.Chronic obstructive pulmonary disease as by Primary and Pulmonary. LASHAWN/MODL Voice ID: [id number] Report ID: [id number]
--- NOTE | 2019-05-16 15:34 | PN ---
Date of Progress Note: 05/16/2019 Subjective: Patient seen and examined. Chart reviewed and case discussed with RN and Dr. Floyd Clifford. Patient is still intubated, sedated, very agitated, requiring more sedation, still on the ventilator with difficult to wean. Medications: List reviewed. Physical Examination: Vital Signs: Temperature 97.9, heart rate 105, blood pressure 102/64, respirations 13, O2 94% on ET tube, 65% FiO2. General: Intubated, sedated. Does become agitated and moves all 4 extremities. CV: S1, S2. Sinus tachycardia. Peripheral pulses present. Respiratory: Diminished breath sounds. Patient is tachypneic with use of accessory muscles. Gastrointestinal: Abdomen is soft, nondistended. Positive bowel sounds. No guarding or rigidity. Extremities: No clubbing, cyanosis, or edema. Neurologic: Intubated, sedated; however, does move all 4 extremities. Laboratory Data: Sodium 130, potassium 3.1, chloride 96, CO2 of 23, BUN 59, creatinine 2.88, glucose 234, calcium 7.5, phosphorus 1, CK levels 102, albumin 2.5, parathyroid is 102. WBC is pending. Rh eumatoid factor is negative. Serology studies including HIV and hepatitis are pending. Blood cultur es, no growth to date. Urine culture, mixed corry. Sputum culture growing out 2+ staph coagulase po sitive. Chest x-ray personally reviewed, shows bilateral pulmonary opacities are again noted, slight ly greater on the right, relative to prior study. Left mid lung infiltrate appears improved since pr ior study. Tip of the ET tube is above the blake. Enteric tube distends into the stomach. Assessment: 58-year-old female with: 1.Septic shock likely secondary to pneumonia. Chest x-ray shows worsening on the right, slight impr ovement on the left. We will continue antibiotics. Consider adding antibiotics to cover atypicals. Currently on vancomycin, cefepime, and Flagyl. Appreciate Dr. Clifford's input. 2.Acute respiratory failure with hypoxia. We will continue with mechanical ventilation, currently o n 65% FiO2 secondary to above. 3.Metabolic acidosis, currently on bicarb drip, improving. 4.Acute kidney injury. Patient's kidney function is improving. Appreciate Dr. Barrientos's input. W e will continue to monitor creatinine level likely due to septic shock and dehydration as well as marcella rrhea. 5.Hyponatremia, improving. We will continue to monitor. 6.Chronic diarrhea. 7.Diabetes mellitus type 2 with hyperglycemia. We will continue with sliding scale insulin, non-ins ulin requiring. 8.Morbid obesity, body mass index of 40. 9.Hypokalemia. We will replace and monitor. 10.Hypophosphatemia. We will replace and monitor. Plan: Continue monitoring in the ICU setting. Overall guarded prognosis. SA/MODL Voice ID: [id number] Report ID: [id number]
[2019-05-16] MEDS: CEFEPIME/SWI 1gm 10 ML IV SCH (17:47)
[2019-05-16] MEDS: HALOPERIDOL LACT 5 MG/ML INJ IV PRN (19:49)
[2019-05-16] MEDS: propofoL 1,000 MG/100 ML VIAL IV PRN ×2 (20:30→23:30)
[2019-05-16] MEDS ORDERED: MAGNESIUM SULFATE 1 gm IVPB 1 GM/100 ML BAG IV ONE (23:30)
[2019-05-17] MEDS: HEPARIN 5000 UNIT/ML 1 ML VIAL SQ SCH (01:20)
[2019-05-17] MEDS: ALBUTEROL 2.5 MG/3 ML NEB SOL NEB SCH ×4 (01:50→20:00)
[2019-05-17] MEDS: IPRATROPIUM BROM 0.5MG/2.5ML NEB SCH ×4 (01:50→20:00)
[2019-05-17] MEDS: propofoL 1,000 MG/100 ML VIAL IV PRN ×4 (03:19→23:14)
[2019-05-17] MEDS: D5W 1,000 ML with NA BICARB 8.4% 75 MEQ IV SCH ×2 (05:30)
[2019-05-17 05:50] LABS: Absolute Lymphocytes (CBC) 0.8 K/uL (0.7-4.9); Hematocrit 25.4 % (36.0-45.0); RBC Red Blood Cell Count 3.35 M/uL (3.86-4.86)
[2019-05-17] MEDS: INSULIN -REGULAR HUMAN 50 UNIT/0.5 ML ML SQ SCH ×4 (06:00→18:00)
[2019-05-17 06:07] LABS: Albumin 2.3 g/dL (3.4-5.0); Magnesium 1.8 mg/dL (1.8-2.4); Phosphorus 1.5 mg/dL (2.5-4.9)
[2019-05-17 06:20] LABS: Potassium 2.1 mmol/L (3.5-5.1)
[2019-05-17] MEDS: KCL 20 MEQ/100 mL IVPB 20 MEQ/100 ML BAG IV SCH ×5 (06:35→23:14)
[2019-05-17 07:38] LABS: Anisocytosis 1+; Blood Morphology Comment NOTED (NOT SEEN); Platelet Estimate DECR; Urine White Blood Cell Casts OK
[2019-05-17 07:39] LABS: Poikilocytosis 1+; Toxic Granulation 1+
--- NOTE | 2019-05-17 08:23 | P.PN ---
Subjective Date of Service: 05/17/19 Chief Complaint: Respiratory failure and shock Patient's condition is stable she is agitated back on propofol thrombocytopenic mildly anemic no evidence of bleeding chest x-ray was improved yesterday oxygenation satisfactory patient is not on any ways of pressors Review of Systems is unable to be obtained Physical Examination - Vital Signs Temperature: 96.3 F Blood Pressure: 118/61 Pulse: 104 Respirations: 25 Pulse Ox (%): 93 - Physical Exam General: Unresponsive Respiratory: Clear to auscultation bilaterally, Crackles/rales Cardiovascular: No edema, Regular rate/rhythm Gastrointestinal: Non-distended - Studies Microbiology Data (last 24 hrs): 05/14/19 17:03 Blood - Blood Gram Stain - Final Assessment & Plan - Problems (Diagnosis) (1) Respiratory failure Current Visit: Yes Status: Acute Plan: Patient is 58 years of age has some ARDS may be secondary to an infection continue with present antibiotics renal function is improving patient is hypokalemic thrombocytopenic Dc all heparin products PF for late factor IgG antibody to be ordered titrate sat to 90% and his peep P chest x-ray Qualifiers: Chronicity: acute Respiratory failure complication: hypoxia Qualified Code(s): J96.01 - Acute respiratory failure with hypoxia (2) Thrombocytopenia Current Visit: Yes Status: Acute Plan: Patient has pneumo thrombocytopenia differential diagnosis includes heparin induced or sepsis induced fibrin level he is over 200 and Dc all heparin products platelet for IgG antibody ordered
[2019-05-17 08:26] LABS: Protime INR 1.32
[2019-05-17] MEDS: HYDROCORTISONE SUC 100 MG INJ IV SCH (09:25)
[2019-05-17] MEDS: WATER FOR INJ,STERILE 10 ML IV SCH (09:26)
[2019-05-17] MEDS: FONDAPARINUX SOD 2.5 MG/0.5 ML SQ SCH (09:26)
[2019-05-17] MEDS: AZITHROMYCIN IV 500 MG in NA CHLORIDE 0.9% 250 ML IVPB SCH (09:26)
[2019-05-17 09:48] LABS: Blood Gas Oxyhemoglobin 85.1 % (94-97); Blood O2 Saturation 87.1 % (92-98.5)
--- NOTE | 2019-05-17 10:29 | RAD REPORT ---
EXAM DESCRIPTION: RAD - Chest Single View - 05/17/2019 9:47 am CLINICAL HISTORY: Respiratory failure on a ventilator Chest pain. COMPARISON: Chest Single View dated 05/16/2019; Chest Single View dated 05/15/2019; Chest Single View [place] 05/14/2019; Chest Single View dated 05/14/2019 FINDINGS: Portable technique limits examination quality. Bilateral pulmonary opacities are present, slightly asymmetric and greater on the right. These appear slightly improved since the prior study. The heart is normal in size. ET tube tip is above the karina a. Enteric tube descends in the stomach.
[2019-05-17] MEDS ORDERED: POTASSIUM PHOS IN 0.9 % NACL 15 MMOL/250 ML BAG IV ONE (11:00)
[2019-05-17] MEDS ORDERED: Magnesium Sulfate 2gm IVPB 2 G/50 ML BAG IV ONE (11:00)
[2019-05-17 11:19] LABS: Urine Appearance CLEAR; Urine Bilirubin NEGATIVE (NEG); Urine Blood 3+ (NEG); Urine Color YELLOW; Urine Glucose NEGATIVE (NEG); Urine Protein TRACE (NEG); Urine Urobilinogen 0.2 mg/dL (0.2-1.0); Urine pH 6.5 (5.0-7.0)
[2019-05-17 11:20] LABS: Urine Microscopic Reflex ORDER UMIC
[2019-05-17 11:28] LABS: Urine RBC >50 /HPF (NONE SEEN)
[2019-05-17 11:29] LABS: Urine Bacteria 20-50 /HPF (<20); Urine Yeast FEW (NONE SEEN)
[2019-05-17 11:30] LABS: Urine Culture Reflex Order REFLEXED
[2019-05-17] MEDS: Ringers Lactate 1,000 ML with POTASSIUM CL 20 MEQ IV SCH ×4 (11:36→22:39)
--- NOTE | 2019-05-17 12:43 | PN ---
Date of Progress Note: 05/17/2019 Subjective: Patient seen and examined. Chart reviewed and case discussed with RN and Dr. Clifford. Patient starting to be weaned off the ventilator, doing better clinically. Family at the bedside. Treatment plan explained. All questions answered. Medications: List reviewed. Physical Examination: Vital Signs: Temperature 96.3, heart rate 104, blood pressure 118/61, respirations 25, O2 93% on 55% FiO2. General: Intubated, sedated. Does move all 4 extremities spontaneously. CVS: S1, S2. Sinus tachyc ardia. Peripheral pulses present. Respiratory: Diminished breath sounds, right worse than left. Patient is tachypneic. Gastrointestinal: Abdomen is soft, nontender, nondistended. Positive bowel sounds. Extremities: No clubbing, cyanosis, or edema. Neuro: The patient moves all 4 extremities, currently intubated and sedated. Laboratory Data: Sodium 135, potassium 2.1, chloride 97, CO2 25, BUN 41, creatinine 1.42, glucose 12 8, calcium 7.5, phosphorus 1.5, magnesium 1.8. Lactate is 379. Procalcitonin is 0.59. WBC 9.3, H a nd H 9 and 25.4, platelets 64, neutrophils 86%. Blood cultures, no growth to date. Sputum culture g rowing Staph aureus, which is methicillin sensitive. Urine culture is pending. Chest x-ray shows bi lateral pulmonary opacities are present, slightly asymmetric and greater on the right. These appear slightly improved since prior study. Heart is normal in size. ET tube is above the blake. Enteric tube distends in the stomach. ABG shows pH 7.66, pCO2 of 21, PO2 47, bicarb 24. Fibrinogen is 247. D-dimer is 2538. Immunology panel and serology panel are pending. Assessment: A 58-year-old female with. 1.Septic shock secondary to pneumonia. Chest x-ray shows slight improvement from yesterday, was giv en Lasix drip yesterday. Continue on antibiotics. Sputum culture growing Methicillin-susceptible St aphylococcus aureus. Patient is currently on vancomycin and cefepime. Flagyl was changed to azithro mycin for atypical coverage. Patient has not had any further diarrhea. 2.Acute respiratory failure with hypoxia. Continue weaning off mechanical ventilation, currently 55 %. ABG shows improvement, however, FiO2 is down in the 40s. Vent settings as per Pulmonology. Appr eciate Dr. Clifford's input. 3.Metabolic acidosis, improving. 4.Acute kidney injury. Patient receives dialysis. Kidney function is improving. This is secondary to septic shock and dehydration as well as chronic diarrhea. Creatinine is significantly better. W e will continue to monitor. 5.Hypokalemia, likely due to the Lasix drip. We will replace and monitor. 6.Hypophosphatemia. We will replace and monitor. 7.Hyponatremia, improving. 8.Chronic diarrhea. Patient has not had any further episodes. 9.Acute anemia. No apparent source of blood loss, likely dilutional. We will check stool occult. 10.Thrombocytopenia, possibly sepsis induced versus heparin-induced thrombocytopenia. Antibody has been sent. Fibrinogen is above 200. No bleeding at this time. No need for acute transfusion. We w ill consult Hematology if platelets continue to drop. 11.Diabetes mellitus type 2 with hyperglycemia. We will continue sliding scale insulin, non-insulin requiring. 12.Morbid obesity. BMI greater than 40. Plan: Disposition, continue to monitor in ICU setting, wean off ventilator. Procalcitonin is decrea sed from previous, but still elevated at 0.59. Overall guarded prognosis. SA/MODL Voice ID: [id number] Report ID: [id number]
--- NOTE | 2019-05-17 13:56 | CON ---
Date of Consultation: 05/14/2019 Brief History Of Present Illness: This is a 58-year-old woman with a history of hypertensi on, diabetes, sleep apnea, brought into the hospital feeling progressively ill. The patient was repo rtedly sick 3 days prior to her admission on 05/14/2019, which was preceded by approximately 3 weeks of diarrhea, vomiting, and progressive shortness of breath. She had seen her primary care doctor as an outpatient regarding this, but continued to have the persistent symptoms. She came to the emergen cy room, was found to be in respiratory distress, placed on nonrebreather. Workup revealed a signifi cant metabolic acidosis and pH 7.1. Her blood chemistry showed acute renal failure with a creatinine of 7 compared to her baseline of 0.9. She had leukocytosis, low-grade temperature, upper lobe pneum onia, persistent vomiting, possible aspiration, critically ill. She was seen and attended by the [facility] medical doctor as well as nephrology team who recommended placement of a temporary dialysis cath eter, and as such, I was consulted for the above-stated issue. Past Medical History: Significant for hypertension, GERD, sleep apnea, claustrophobia, diabetes. Past Surgical History: Includes a tonsillectomy, cholecystectomy. Information is obtained from the chart as the patient is currently intubated on the ventilator in the ICU and unable to give response. Allergies: TO AUGMENTIN, CIPRO, TETRACYCLINE. Home Medications: Include amlodipine, aspirin, vitamin D3, Clarinex, Nexium, metformin, Toprol, Mayra pres, olmesartan, Mirapex, Diamox. Social History: Unable to obtain. Review of Systems: 10-point review of systems unable to obtain. Physical Examination: Vital Signs: At time of my examination were a temperature of 96.4, pulse was 96, respiratory rate wa s 26, blood pressure was 59/45. She was on pressor support during my examination and her blood press ure was being corrected but was labile during the process. General: She was otherwise sedated, intubated, and minimally responsive on the ventilator. HEENT: She was otherwise normocephalic. There was no obvious trauma. Her sclerae were anicteric. Her mucous membranes were moist. Oropharynx had an endotracheal tube in place. Neck: Supple without JVD. Chest: Decreased expansion and excursion. Decreased breath sounds bilaterally. Abdomen: Soft. Extremities: Focused examination of the extremities, no edema evident generally. General Appearance: She was obese with a BMI of 41.1. Laboratory Exam: Revealed a white blood cell count of 17.2, hemoglobin was 13.5, hematocrit of 42.1, platelet count was 183, neutrophils were 89%. PT 12.9, INR 1.1. Her pH was 7.11, pCO2 was 45, pO2 was 74, bicarb was 13.9, base excess was -13 on 100% FiO2. Sodium was 128, potassium 3.3, chloride 9 2, carbon dioxide was 15, BUN 106, creatinine 6.6, glucose 122. Her lactic acid was 2.6, uric acid 2 2.5, calcium 7.0, phosphorus 7.5, magnesium 1.6, total bilirubin 0.4, direct bilirubin 0.1, AST 25, A LT 16, alkaline phosphatase was 103. Troponin was less than 0.02 on 2 subsequent checks. ProBNP was 861. Her lipase was 280. Her PTH was 160. Her procal was 0.68. She had a UA, which was evident f or urinary tract infection with great number of bacteria evident. The leukocyte esterase was negativ e. Imaging: She had imaging performed which included a chest x-ray officially read as endotracheal tube in good position with mid aortic and arch level dense opacification developed in the left perihilar region, may reflect aspiration pneumonia. Right upper lobe pneumonia still present. Left lung field findings are potentially infectious pneumonia as well. Assessment And Plan: This is a 58-year-old female with multiple medical comorbidities with evidence of septic shock from an uncertain source with current significant acidosis and acute renal failure. 1.Continue medical management. 2.I explained the risks, benefits, and alternatives of placement of a temporary untunneled hemodialy sis catheter including but not limited to bleeding, infection, damage to surrounding tissue, need for further operation and procedures, the patient agrees. The patient's family agrees to proceed as ind icated. I spoke with her who agreed to proceed as well who is making decisions for the patie nt. We will proceed with the above-stated procedure. Thank you for this interesting consult. KARRIE/V[place] Voice ID: [id number] Report ID: [id number]
[2019-05-17] MEDS: CEFEPIME/SWI 1gm 10 ML IV SCH (18:15)
[2019-05-17] MEDS ORDERED: VITAL AF 1,000 ML BOT FT SCH (19:00)
[2019-05-17] MEDS: HALOPERIDOL LACT 5 MG/ML INJ IV PRN (19:15)
[2019-05-17] MEDS ORDERED: NOREPINEPHRINE 4 MG/4 ML VIAL ONE (19:18)
[2019-05-17] MEDS ORDERED: D5W 250 ML IV ONE (19:18)
[2019-05-17 19:34] LABS: HIV AG/AB 4TH GEN Non-reactive (Non-reactive)
--- NOTE | 2019-05-17 20:02 | PN ---
Date of Progress Note: 05/17/2019 Subjective: The patient was admitted with septic shock, severe acidosis, severe hyponatremia. Patie nt with fluid resuscitation, bicarb drip. Acidosis was resistant. For that reason, patient undergo 1 session of dialysis. Patient is still on Levophed. Blood pressure is currently maintained. The p atient maintained on bicarb drip. Her acidosis today being resolved. Yesterday, the patient receive d single dose of Lasix. Had very good urine output. Today, patient had a drop in her platelet. Physical Examination: General: Patient still on vent. Vital Signs: Blood pressure 97/66, pulse of 105. Chest: Faint crackles at bilateral base. Heart: S1, S2. Tachycardic. Abdomen: Soft, nontender. Extremities: Trace edema. Neuro: Patient on vent, sedated. Laboratory Data: WBC 9.3, H and H 9/25.4, platelets of 64. Sodium 135, potassium 2.1, bicarb 25, BU N 41, creatinine 1.4. GFR of 38, glucose 128, calcium 7.5. Phos 1.5, magnesium 1.8, albumin 2.3. P TH 102. Corrected calcium is 8.7. Vitamin D still pending. Urinalysis positive for infection, PC r atio is 0.6. Serology still pending. Urine drug screen was negative. Rheumatoid factor negative. ABG; pH 7.66, CO2 of 21, O2 of 47, saturation 85. Current Medications: The patient on its include; 1.Bicarb drip with half normal saline. 2.Azithromycin. 3.Cefepime. 4.Vancomycin. 5.Sedation. 6.Breathing treatment. 7.Hydrocortisone 100 b.i.d. Assessment And Plan: 1.Acute kidney injury secondary to poor perfusion acute tubular necrosis, toxic acute tubular necros is with severe acidosis and hyponatremia, on the recovery, nonoliguric, currently hypokalemic. 2.I am going to change IV fluid from bicarb drip to LR with potassium and we will monitor the patien t. Patient self diurese currently, so I do not need for further diuresis and we will monitor. 3.Septic shock. Keep holding all blood pressure medication. 4.Acidosis, multifactorial, secondary to renal failure, diarrhea, and metformin. Recovered. Discon tinue bicarb. Place the patient on LR. 5.Hypokalemia, hypomagnesemia, hypophosphatemia. We will supplement. 6.Secondary hyperparathyroidism. Continue calcitriol. 7.Thrombocytopenia with the drop in the H and H, could be dilutional/given the altered mental status , the renal failure, even though the renal failure has been improving. I am going to send for schist ocyte and haptoglobin given the elevation in the LDH and the D-dimer and to rule out any hemolytic ur emic syndrome, even though that I doubt it again because of the improvement on the kidney function an d patient nonoliguric. No hematuria. 8.Urinary tract infection with urosepsis. Continue current antibiotic. 9.Hyponatremia, possible secondary to depletional. It is questionable if it is secondary to atypica l pneumonia. Continue current antibiotic, currently resolved. Change IV fluid to LR. 10.Septic shock, as above. We will follow up with the primary. Case discussed with the hospitalist. Discussed with the staff, agreed on the plan. STEFF Voice ID: [id number] Report ID: [id number]
[2019-05-17] MEDS ORDERED: POTASSIUM 25 MEQ EFFERV TAB PO ONE (22:46)
[2019-05-18] MEDS: HALOPERIDOL LACT 5 MG/ML INJ IV PRN (00:15)
[2019-05-18] MEDS: KCL 20 MEQ/100 mL IVPB 20 MEQ/100 ML BAG IV SCH (00:59)
[2019-05-18] MEDS: FENTANYL CITR 100 MCG/2 ML IV PRN (01:00)
[2019-05-18] MEDS: ALBUTEROL 2.5 MG/3 ML NEB SOL NEB SCH ×2 (02:05→07:40)
[2019-05-18] MEDS: IPRATROPIUM BROM 0.5MG/2.5ML NEB SCH ×4 (02:05→20:10)
[2019-05-18] MEDS: propofoL 1,000 MG/100 ML VIAL IV PRN ×6 (03:03→19:49)
[2019-05-18 05:14] LABS: Absolute Lymphocytes (CBC) 1.4 K/uL (0.7-4.9); Basophils % 0.1 % (0-1.3); Hematocrit 26.5 % (36.0-45.0); MPV 8.7 fL (7.6-11.3); RBC Red Blood Cell Count 3.41 M/uL (3.86-4.86)
[2019-05-18 05:30] LABS: Albumin 2.3 g/dL (3.4-5.0); Magnesium 1.9 mg/dL (1.8-2.4); Phosphorus 1.9 mg/dL (2.5-4.9); Potassium 3.2 mmol/L (3.5-5.1)
[2019-05-18] MEDS: INSULIN -REGULAR HUMAN 50 UNIT/0.5 ML ML SQ SCH ×4 (06:00→18:00)
[2019-05-18] MEDS ORDERED: POTASSIUM 25 MEQ EFFERV TAB PO ONE ×2 (06:45→20:30)
[2019-05-18] MEDS ORDERED: POTASSIUM PHOS IN 0.9 % NACL 15 MMOL/250 ML BAG IV ONE (07:00)
[2019-05-18] MEDS: Ringers Lactate 1,000 ML with POTASSIUM CL 20 MEQ IV SCH ×2 (07:12)
--- NOTE | 2019-05-18 07:49 | RAD REPORT ---
EXAM DESCRIPTION: Maria T Single View05/18/2019 5:41 am CLINICAL HISTORY: Respiratory failure COMPARISON: May 17, 2019 FINDINGS: Mild worsening the diffuse bilateral pulmonary opacities. The heart is normal size Endotracheal nasogastric tubes good position IMPRESSION: Mild worsening in bilateral pulmonary opacities which may represent pneumonia or pulmona ry edema
[2019-05-18] MEDS: AZITHROMYCIN IV 500 MG in NA CHLORIDE 0.9% 250 ML IVPB SCH (07:57)
[2019-05-18] MEDS: FONDAPARINUX SOD 2.5 MG/0.5 ML SQ SCH (07:57)
--- NOTE | 2019-05-18 08:40 | P.PN ---
Subjective Date of Service: 05/18/19 Chief Complaint: Respiratory failure agitation Patient continues to be very agitated requiring propofol otherwise hemodynamically stable Review of Systems is unable to be obtained Physical Examination - Vital Signs Temperature: 100 F Blood Pressure: 127/81 Pulse: 93 Respirations: 18 Pulse Ox (%): 98 - Physical Exam General: Delirious, Unresponsive Respiratory: Clear to auscultation bilaterally Cardiovascular: No edema, Regular rate/rhythm, Normal S1 S2 Gastrointestinal: Normal bowel sounds, Soft and benign - Studies Microbiology Data (last 24 hrs): 05/14/19 17:48 Catheterized Urine Pointblank Count - Final 05/14/19 17:48 Catheterized Urine - Final No growth. Assessment & Plan - Problems (Diagnosis) (1) Respiratory failure Current Visit: Yes Status: Acute Plan: Patient admitted with respiratory failure bilateral pneumonia blood pressure now satisfactory kidney function is back to normal of Lasix patient is hypokalemic cultures so for the shows Staph aureus probably contaminant chest x- ray ARDS maintain in slight negative fluid balance LTAC evaluation patient tolerating tube feeds change antibiotics to Rocephin and doxycycline Dc vancomycin and cefepime serum pro calcitonin level titrate sat to 90% lower peep more change to SIMV and high level of pressure support Qualifiers: Chronicity: acute Respiratory failure complication: hypoxia Qualified Code(s): J96.01 - Acute respiratory failure with hypoxia (2) Thrombocytopenia Current Visit: Yes Status: Acute Plan: Thrombocytopenia stable Discharge Plan: LTAC
[2019-05-18] MEDS ORDERED: FUROSEMIDE 20 MG/ 2ML VIAL IV SCH (09:00)
[2019-05-18] MEDS: CEFTRIAXONE/SWI 1gm 1 GM/10 ML SYR IV SCH (09:52)
[2019-05-18] MEDS: DOXYCYCLINE 100 MG in NA CHLORIDE 0.9% 100 ML IVPB SCH ×2 (09:52→20:28)
[2019-05-18] MEDS: ARFORMOTEROL TARTRATE 15 MCG/2 ML VIAL.NEB NEB SCH ×2 (10:00→20:10)
[2019-05-18] MEDS: NA CHLORIDE 0.9% IV SCH ×2 (11:23→20:29)
[2019-05-18] MEDS: FUROSEMIDE IV SCH ×2 (11:23→20:29)
[2019-05-18] MEDS: PARICALCITOL 2 MCG/ML VIAL IV SCH (11:27)
--- NOTE | 2019-05-18 14:47 | PN ---
Date of Progress Note: 05/18/2019 Subjective: Patient seen and examined. Chart reviewed and case discussed with RN and Dr. Darrin nazario s well as Dr. Barrientos. Had a discussion with the family regarding placement to LTAC, they seem agre eable. Patient had to be placed back on sedation due to agitation and back on Levophed now. Medications: List reviewed. Physical Examination: Vital Signs: Temperature 100, heart rate 93, blood pressure 127/81, respirations 18, O2 98% on 60% F iO2. General: Intubated, sedated, ill-appearing female, morbidly obese. CV: S1, S2. Regular rate and rhythm. Peripheral pulses present. Respiratory: Diminished breath sounds. Rhonchi heard. Patient is slightly tachypneic. Gastrointestinal: Abdomen is soft, nondistended. Positive bowel sounds. No rigidity. Extremities: No clubbing or cyanosis. Minimal pedal edema. Neurologic: Intubated, sedated. Laboratory Data: Sodium 139, potassium 3.2, chloride 103, CO2 of 28, BUN 29, creatinine 0.97, glucos e 117, calcium 8. Phosphorus 1.9, magnesium 1.9. WBC 10.5, hemoglobin and hematocrit 8.8 and 26.5, platelets 60. HIT antibody test was negative. Blood cultures, no growth to date. Sputum cultures g rowing Staph aureus, which is methicillin sensitive. Chest x-ray personally reviewed, shows worsenin g in bilateral pulmonary opacities, which may represent pneumonia or pulmonary edema. Assessment: A 58-year-old female with: 1.Septic shock secondary to pneumonia. Sepsis is improving. Blood cultures are negative. Sputum c ultures positive for methicillin-susceptible Staphylococcus aureus. Antibiotics have been adjusted. Now on Rocephin and doxycycline. No diarrhea. 2.Acute respiratory failure with hypoxia, still on mechanical ventilation. Appreciate Dr. Clifford' s input. Still requiring FiO2 of 60%. Worsening chest x-ray today due to possible adult respiratory distress syndrome. 3.Metabolic acidosis, resolved. 4.Acute kidney injury. Kidney function back to normal likely secondary to metformin and chronic marcella rrhea with dehydration. No need for further dialysis. Appreciate Nephrology input. Continue to mon itor. 5.Hypokalemia. Replace and monitor. 6.Thrombocytopenia, likely sepsis induced. Heparin-induced antibody is negative. Platelets are sta ble at 60 at this time. We will continue to monitor. 7.Acute anemia, likely dilutional. Stool occult is pending. 8.Hypophosphatemia. We will replace and monitor. 9.Hyponatremia, corrected. 10.Hypocalcemia, being replaced. 11.Chronic diarrhea. No further episodes. However, tube feeds have been resumed. We will monitor. 12.Diabetes mellitus type 2 with hyperglycemia. Continue sliding scale insulin and monitor blood gl ucose levels. 13.Morbid obesity. BMI greater than 40. 14.Disposition. LTAC placement. Overall guarded prognosis. SA/MODL Voice ID: [id number] Report ID: [id number]
--- NOTE | 2019-05-18 15:09 | PN ---
Date of Progress Note: 05/18/2019 Patient was admitted with septic shock, severe acidosis, acute renal failure, respiratory failure. P atient was started on pressor. The patient required dialysis, received single session of dialysis, p laced on bicarb drip, bicarb drip discontinued yesterday. Continue on LR. Patient still on pressor, failed weaning. Physical Examination: Vital Signs: Blood pressure 127/80, pulse of 93, afebrile. The patient had good urine output of 220 0. Chest: Crackles at bilateral base. Heart: S1, S2. Regular. Abdomen: Soft, nontender. EXTREMITIES: Trace edema. Laboratory Data: WBC 10.5, H and H 8.8/26.5, platelets of 60. Sodium 139, potassium 3.2, bicarb 28, BUN 29, creatinine 0.9, calcium of 8, phosphorus 1.9, magnesium 1.9, albumin 2.3. Procalcitonin rupert n to 0.4. TSH 0.3. Cortisol level was elevated but patient was on hydrocortisone. ABG yesterday, p H 7.66, CO2 of 21, O2 of 47, PC ratio of 0.6. Current Medications: The patient on include: 1.Breathing treatment. 2.Doxycycline. 3.Ceftriaxone. 4.Sedation. 5.Lasix 20 b.i.d. 6.Zofran. 7.Potassium supplement. 8.LR. Assessment And Plan: 1.Acute kidney injury, multifactorial, secondary to metformin, septic shock, poor perfusion, toxic a cute tubular necrosis secondary to sepsis, nonoliguric, no hyperkalemia, status post single session o f dialysis. No hyperkalemia or acidosis. No need for the dialysis right now. Looked to me slightly on the wet side. I am going to go ahead and discontinue intravenous fluid. Agree with the diuresis and we will monitor the patient closely. 2.Hypertension, currently hypotension. Continue to follow up with pressor. 3.Anemia with thrombocytopenia. Schistocyte has been sent. LDH been elevated. Platelet started to stabilize. We will follow up. Send for iron study. 4.Hypokalemia, hypomagnesemia, hypophosphatemia. We will supplement. 5.Acidosis secondary to renal failure/metformin/diarrhea. Recover. Discontinue lactated Ringer's. Keep holding bicarb drip. 6.Septic shock. Continue current treatment. 7.Respiratory failure as by Pulmonary. We will diurese the patient to establish better volume contr ol. 8.Diabetes as by Primary. LASHAWN/MODL Voice ID: [id number] Report ID: [id number]
[2019-05-18] MEDS: THIAMINE 200 MG/2 ML INJ IVP SCH (20:29)
[2019-05-18] MEDS ORDERED: NA CHLORIDE 0.9% 100 ML ONE (20:35)
[2019-05-18] MEDS ORDERED: KCL 20 MEQ/100 mL IVPB 20 MEQ/100 ML BAG IV SCH (21:00)
[2019-05-19] MEDS: IPRATROPIUM BROM 0.5MG/2.5ML NEB SCH ×4 (01:40→19:20)
[2019-05-19] MEDS: propofoL 1,000 MG/100 ML VIAL IV PRN ×6 (04:00→21:15)
[2019-05-19] MEDS: INSULIN -REGULAR HUMAN 50 UNIT/0.5 ML ML SQ SCH ×4 (05:36→18:57)
[2019-05-19 06:16] LABS: Basophils % 0.1 % (0-1.3); Lymphocytes % 12.8 % (15.3-44.8); MPV 9.2 fL (7.6-11.3); RBC Red Blood Cell Count 3.16 M/uL (3.86-4.86)
[2019-05-19 06:26] LABS: Albumin 2.1 g/dL (3.4-5.0); BUN Blood Urea Nitrogen 24 mg/dL (7-18); Bicarbonate 33 mmol/L (21-32); Glucose Level 101 mg/dL (74-106); Phosphorus 1.5 mg/dL (2.5-4.9); Potassium 3.6 mmol/L (3.5-5.1); Sodium Level 141 mmol/L (136-145)
[2019-05-19] MEDS ORDERED: POTASSIUM PHOS IN 0.9 % NACL 15 MMOL/250 ML BAG IV ONE (07:30)
[2019-05-19] MEDS: ARFORMOTEROL TARTRATE 15 MCG/2 ML VIAL.NEB NEB SCH ×2 (08:12→19:20)
[2019-05-19] MEDS: ALBUTEROL 2.5 MG/3 ML NEB SOL NEB PRN ×2 (08:12→13:43)
[2019-05-19 08:50] LABS: Anisocytosis SLIGHT; Blood Morphology Comment NOTED (NOT SEEN); Platelet Estimate ADEQ
--- NOTE | 2019-05-19 09:00 | RAD REPORT ---
EXAM DESCRIPTION: RAD - Chest Single View - 05/19/2019 5:43 am CLINICAL HISTORY: Respiratory failure on a ventilator COMPARISON: Chest Single View dated 05/18/2019 TECHNIQUE: AP portable chest image was obtained 05/19/2019 5:43 am . FINDINGS: Low lung volumes noted. NG tube is in place extending below the diaphragm, off the field o f view. ET tube in good position. Low lung volumes accentuate lung parenchymal pattern. The right lung field interstitial opacities are stable. Patient has increasing left lung parenchymal opacification even when adjusting for the lower lung volume. Pleural fluid likely contributes to this as well. Heart size is upper normal and stable . No pneumothorax. Delete select IMPRESSION: Worsening left lung parenchymal opacification primarily left upper lobe. Stable right lung field opacification. No change in positioning of the ET tube or NG tube.
[2019-05-19] MEDS: THIAMINE 200 MG/2 ML INJ IVP SCH (09:04)
[2019-05-19] MEDS: HALOPERIDOL LACT 5 MG/ML INJ IV PRN (09:04)
[2019-05-19] MEDS: CEFTRIAXONE/SWI 1gm 1 GM/10 ML SYR IV SCH (09:07)
[2019-05-19] MEDS: FUROSEMIDE IV SCH ×2 (09:08→20:26)
[2019-05-19] MEDS: NA CHLORIDE 0.9% IV SCH ×2 (09:08→20:26)
[2019-05-19 09:14] LABS: Vitamin D 1,25-Dihydroxy Total 20 pg/mL (18-72); Vitamin D,1,25-OH2, D2 <8 pg/mL
[2019-05-19] MEDS: DOXYCYCLINE 100 MG in NA CHLORIDE 0.9% 100 ML IVPB SCH ×2 (09:20→20:27)
[2019-05-19] MEDS: NOREPINEPHRINE 8 MG in Dextrose 5%-Water 500 ML IV PRN (10:44)
--- NOTE | 2019-05-19 10:46 | P.PN ---
Subjective Date of Service: 05/19/19 Chief Complaint: Respiratory failure agitation Patient's x-ray looks worse worsening on the left side she is now hypotensive on propofol drip Review of Systems is unable to be obtained Physical Examination - Vital Signs Temperature: 97.1 F Blood Pressure: 108/55 Pulse: 117 Respirations: 18 Pulse Ox (%): 100 - Physical Exam General: Unresponsive Respiratory: Crackles/rales Cardiovascular: No edema, Normal S1 S2 Gastrointestinal: Normal bowel sounds, Soft and benign Assessment & Plan - Problems (Diagnosis) (1) Respiratory failure Current Visit: Yes Status: Acute Plan: Respiratory failure chest x-ray looks worse increase peep to 10 p patient is hypotensive start on Levophed cultures negative apart from the staph in the sputum which is pansensitive patient is thrombocytopenic in a decline in her platelet count patient is on ceftriaxone and doxycycline for atypical coverage according to the nurses the platelet for antibody is negative increase peep to 10 patient is on small dose of Lasix Qualifiers: Chronicity: acute Respiratory failure complication: hypoxia Qualified Code(s): J96.01 - Acute respiratory failure with hypoxia (2) Thrombocytopenia Current Visit: Yes Status: Acute Plan: Thrombocytopenia stable platelet 4 factor antibody for heparin induced thrombocytopenia is negative as per nursing staff
[2019-05-19] MEDS ORDERED: CISATRACURIUM INJECTION 2 MG/ML (10 ML Vial) IV PRN (10:57)
[2019-05-19] MEDS ORDERED: Ringers Lactate 1,000 ML IV SCH (11:00)
[2019-05-19] MEDS: METHYLPREDNISOLONE 40 MG INJ IV SCH ×2 (12:09→18:40)
--- NOTE | 2019-05-19 13:06 | P.PN ---
Subjective Date of Service: 05/19/19 Chief Complaint: Respiratory failure agitation Subjective: No new changes Subjective Pt admitted with acute respiratory failure, found to have NEVA and acidosis today Good UO RFt wnl Plt trending down, hematology consulted , off heparin on levophed Cont current dose of lasix Physical exam general: intubated , obese Neck; Supple, No elevated JVD hear: RRR, normal S1,2 no murmur or rub Chest: Basal rales Abdomen: Soft , Nt , reis catheter , Lt femoral catheter Extremities Upper extremity edema Physical Examination - Vital Signs Temperature: 97.1 F Blood Pressure: 119/70 Pulse: 96 Respirations: 15 Pulse Ox (%): 97 - Studies Medications List Reviewed: Yes Assessment And Plan - Plan NEVA likely due to ATN resolved will remove dialysis catheter once Plt count improves Acidosis resolved Septic shock cont to be on Abx and pressers support Edema cont lasix Hypokalemia , and hypomagnesemia replace prn thrombocytopena off heparin could be due to sepsis and Abx cont to monitor while off heparin Prognosis Guarded
[2019-05-19 14:31] LABS: C.diff Antigen/Toxin Ag neg : Tox neg (NEG : NEG)
--- NOTE | 2019-05-19 16:46 | PN ---
Date of Progress Note: 05/19/2019 Subjective: Patient seen and examined. Chart reviewed and case discussed with RN. Family at the bedside. Treatment plan explained. All questions answered. They state that the patient did not want to be on life support. At this point, patient able to make her own decisions. Medications: List reviewed. Physical Examination: Vital Signs: Temperature 100, heart rate 105, blood pressure 85/46 respirations 30, O2 97% on 50% FiO2. General: Intubated, sedated, morbidly obese female, ill-appearing. CV: S1, S2. Sinus tachycardia. Peripheral pulses present. Respiratory: Diminished breath sounds. No wheezing. Patient is tachypneic. Gastrointestinal: Abdomen is soft, nontender, nondistended. Positive bowel sounds. Extremities: No clubbing, cyanosis. Patient has peripheral edema. Neurologic: Intubated, sedated. Laboratory Data: Sodium 141, potassium 3.6, chloride 105, CO2 of 33, BUN 24, creatinine 0.62, glucose 101, calcium 8.1. Phosphorus 1.5, albumin 2.1. WBC 7.7, hemoglobin and hematocrit 8.1 and 25, platelets 42, neutrophils 75%. Sputum cultures growing out MSSA. Blood cultures, no growth to date. Chest x- ray shows worsening left lung parenchymal opacification. Primary left upper lobe stable, right lung field opacification. ET tube, NG tube in place. Assessment: A 58-year-old female with: 1. Septic shock secondary to pneumonia. White blood cell count improved. Sputum cultures positive for methicillin-susceptible Staphylococcus aureus. 2. Acute respiratory failure with hypoxia, on mechanical ventilation, now down to 50% FiO2. Chest x-ray shows worsening possibly adult respiratory distress syndrome. 3. Metabolic acidosis, resolved. 4. Acute kidney injury. Kidney function is back to normal. We will continue to monitor. 5. Hypokalemia. We will replace and monitor. 6. Hypomagnesemia. We will replace and monitor. 7. Thrombocytopenia, likely sepsis induced. HIT antibody is negative. Hematology has been consulted. Hold Arixtra. 8. Acute anemia, likely dilutional. 9. Chronic diarrhea. No further episodes. 10. Diabetes mellitus type 2 with hyperglycemia. We will continue sliding scale insulin and monitor blood glucose levels. 11. Morbid obesity. BMI 40. 12. Disposition, was undergoing LTAC referral. However, family states that the patient did not wish to be on life support. We will discuss further with family regarding advanced directives. For now, we will continue to monitor in ICU setting. If they wish to withdraw care, we will need to on her wishes. ADDENDUM: agrees with DNR. He understands that no resuscitative efforts will be made and a cardiopulmonary arrest may well be terminal. Sister also present. /[place] Voice ID: [id number] Report ID: [id number] MTDD
[2019-05-19 16:58] LABS: Hepatitis C Virus RNA (PCR)log <1.18 log IU/mL
[2019-05-19] MEDS: VITAL HP 1,000 ML BOT FT SCH (19:45)
[2019-05-19] MEDS ORDERED: NA CHLORIDE 0.9% 50 ML ONE (20:39)
[2019-05-19 21:02] LABS: HBsAG Nonreactive (Nonreactive)
[2019-05-20] MEDS: propofoL 1,000 MG/100 ML VIAL IV PRN ×6 (00:11→17:01)
[2019-05-20] MEDS: METHYLPREDNISOLONE 40 MG INJ IV SCH ×4 (01:04→23:57)
[2019-05-20] MEDS: IPRATROPIUM BROM 0.5MG/2.5ML NEB SCH ×4 (01:40→19:55)
[2019-05-20 05:01] LABS: Protime INR 1.12
[2019-05-20 05:36] LABS: Albumin 2.2 g/dL (3.4-5.0); Bilirubin Total 0.5 mg/dL (0.2-1.0); Ferritin 303.5 ng/mL (8-388); Folic Acid, (Folate) 3.3 ng/mL (3.1-17.5); Phosphorus 2.1 mg/dL (2.5-4.9); Potassium 3.9 mmol/L (3.5-5.1)
[2019-05-20 05:41] LABS: Absolute Lymphocytes (CBC) 0.8 K/uL (0.7-4.9); Basophils % 0.1 % (0-1.3); Hematocrit 25.9 % (36.0-45.0); Lymphocytes % 6.9 % (15.3-44.8); MPV 8.7 fL (7.6-11.3); RBC Red Blood Cell Count 3.27 M/uL (3.86-4.86)
[2019-05-20] MEDS: INSULIN -REGULAR HUMAN 50 UNIT/0.5 ML ML SQ SCH ×4 (05:55→18:00)
[2019-05-20] MEDS: ARFORMOTEROL TARTRATE 15 MCG/2 ML VIAL.NEB NEB SCH ×2 (07:45→19:55)
[2019-05-20 07:53] LABS: Anisocytosis SLIGHT; Blood Morphology Comment NOTED (NOT SEEN); Platelet Estimate DECR
[2019-05-20] MEDS: DOXYCYCLINE 100 MG in NA CHLORIDE 0.9% 100 ML IVPB SCH ×2 (08:34→20:44)
[2019-05-20] MEDS: CEFTRIAXONE/SWI 1gm 1 GM/10 ML SYR IV SCH (08:36)
[2019-05-20] MEDS: THIAMINE 200 MG/2 ML INJ IVP SCH (08:36)
[2019-05-20] MEDS: NA CHLORIDE 0.9% IV SCH ×2 (08:37→20:44)
[2019-05-20] MEDS: FUROSEMIDE IV SCH ×2 (08:37→20:44)
[2019-05-20] MEDS ORDERED: POTASSIUM PHOS IN 0.9 % NACL 15 MMOL/250 ML BAG IV ONE (09:00)
--- NOTE | 2019-05-20 10:58 | RAD REPORT ---
EXAM DESCRIPTION: Maria T Single View05/20/2019 9:58 am CLINICAL HISTORY: Shortness of breath COMPARISON: May 19 FINDINGS: Significant improvement in the left pulmonary opacities. Mild to moderate improvement in t he right pulmonary opacities. Endotracheal and nasogastric tubes in good position The heart is normal size IMPRESSION: Improvement in bilateral pulmonary opacities probably pulmonary edema
--- NOTE | 2019-05-20 11:24 | P.PN ---
Subjective Date of Service: 05/20/19 Chief Complaint: Respiratory failure agitation Patient is improving chest x-ray has improved she is off vasopressors on propofol less agitated Review of Systems is unable to be obtained Physical Examination - Vital Signs Temperature: 98 F Blood Pressure: 102/58 Pulse: 94 Respirations: 14 Pulse Ox (%): 95 - Physical Exam General: Unresponsive Respiratory: Clear to auscultation bilaterally Cardiovascular: No edema, Regular rate/rhythm Gastrointestinal: Normal bowel sounds, Soft and benign - Studies Microbiology Data (last 24 hrs): 05/14/19 17:03 Blood - Blood Aerobic Blood Culture - Final No growth in 5 days. 05/14/19 17:03 Blood - Blood Anaerobic Blood Culture - Final 05/14/19 17:03 Blood - Blood Gram Stain - Final 05/14/19 16:51 Blood - Blood Aerobic Blood Culture - Final No growth in 5 days. 05/14/19 16:51 Blood - Blood Anaerobic Blood Culture - Final No growth in 5 days. Medications List Reviewed: Yes Assessment & Plan - Problems (Diagnosis) (1) Respiratory failure Current Visit: Yes Status: Acute Plan: Patient admitted with respiratory failure is improving patient has improved significantly continue to wean off the propofol hemodynamically stable labs reviewed renal function is normal continue with steroids in fact there is a significant improvement on the x-ray continue with FiO2 of 50% for now until she is off the the propofol on a little peep of for family we can wean her off from the ventilator Qualifiers: Chronicity: acute Respiratory failure complication: hypoxia Qualified Code(s): J96.01 - Acute respiratory failure with hypoxia (2) Thrombocytopenia Current Visit: Yes Status: Acute Plan: T thrombocytopenia stable
[2019-05-20] MEDS: PARICALCITOL 2 MCG/ML VIAL IV SCH (12:36)
[2019-05-20] MEDS: FENTANYL CITR 100 MCG/2 ML IV PRN ×2 (13:59→21:44)
--- NOTE | 2019-05-20 14:57 | P.PN ---
Subjective Date of Service: 05/20/19 Chief Complaint: Respiratory failure agitation Subjective Pt admitted with acute respiratory failure, found to have NEVA and acidosis today edema improving CXR with improvement , still have coarse sounds on breathing will cont current dose of lasix for now Monitor Plt Physical exam general: intubated , obese Neck; Supple, No elevated JVD hear: RRR, normal S1,2 no murmur or rub Chest: coarse breathing sounds Abdomen: Soft , Nt , reis catheter , Lt femoral catheter Extremities le edema resolved , Upper extremity edema improving , Lt >Rt NEVA likely due to ATN resolved will remove dialysis catheter once Plt count improves Acidosis resolved Septic shock cont to be on Abx and pressers support Edema cont lasix Hypokalemia , and hypomagnesemia replace prn thrombocytopena off heparin could be due to sepsis cont to monitor while off heparin Prognosis Guarded Physical Examination - Vital Signs Temperature: 98.6 F Blood Pressure: 115/70 Pulse: 90 Respirations: 14 Pulse Ox (%): 96 - Studies Microbiology Data (last 24 hrs): 05/14/19 17:03 Blood - Blood Aerobic Blood Culture - Final No growth in 5 days. 05/14/19 17:03 Blood - Blood Anaerobic Blood Culture - Final 05/14/19 17:03 Blood - Blood Gram Stain - Final 05/14/19 16:51 Blood - Blood Aerobic Blood Culture - Final No growth in 5 days. 05/14/19 16:51 Blood - Blood Anaerobic Blood Culture - Final No growth in 5 days. Medications List Reviewed: Yes
--- NOTE | 2019-05-20 15:23 | PN ---
Date of Progress Note: 05/20/2019 Subjective: Patient is seen and examined. Chart reviewed and case discussed with RN. Family at the bedside, sister. Treatment plan explained. All questions answered. Patient is able to be taken of f Levophed, still on propofol. Medications: List reviewed. Physical Examination: Vital Signs: Temperature 98, heart rate 94, blood pressure 110/65, respirations 14, O2 of 95% on 60% FiO2. General: Awake, alert, intubated, mildly sedated, not paralyzed. Does not seem to be agitated. Ill -appearing female in respiratory distress, morbidly obese. CV: S1, S2. Sinus tachycardia. Peripheral pulses present. Respiratory: Diminished breath sounds. Patient is tachypneic. Gastrointestinal: Abdomen is soft, nondistended. Positive bowel sounds. No rigidity. Extremities: No clubbing or cyanosis. Patient has peripheral edema, bilateral upper and lower extre mities. Neuro: Intubated, mildly sedated. Laboratory Data: Sodium 141, potassium 3.9, chloride 104, CO2 of 32, BUN 22, creatinine 0.69, glucos e 173, calcium 7.9, phosphorus 2.1. Iron 32, iron binding capacity 179, transferrin 128, ferritin 30 3. Lactate 386. Albumin 2.2. Vitamin B12 1603. WBC 11.1, H and H 8.2 and 25.9, platelets 42. Blo od cultures, no growth to date. Sputum culture growing Staph aureus. Hemoccult blood is positive. Chest x-ray shows mild improvement in bilateral pulmonary opacities, probably pulmonary edema. Assessment And Plan: A 58-year-old female with: 1.Septic shock secondary to pneumonia. Sputum cultures positive for methicillin-susceptible Staphyl ococcus aureus. White count is improved. Blood cultures are negative. We will continue antibiotics . 2.Acute respiratory failure with hypoxia, on mechanical ventilation, was requiring higher FiO2, but now down to 50% again. Chest x-ray shows pulmonary edema type pattern as well. 3.Acute respiratory distress syndrome. 4.Metabolic acidosis, resolved. 5.Acute kidney injury, stable. Appreciate Nephrology input. 6.Hypokalemia. Replace and monitor. 7.Hypomagnesemia, was corrected. We will monitor. 8.Thrombocytopenia. At this point, seems to be induced secondary to sepsis. Appreciate Dr. Agustin's input. HIT antibody is negative. 9.Acute anemia, likely dilutional. Hemoccult was positive. Iron studies do show deficiency pattern . We will continue to monitor H and H and transfuse as needed. 10.Chronic diarrhea. No further episodes. 11.Diabetes mellitus type 2 with hyperglycemia. Continue sliding scale insulin and monitor blood gl ucose levels. 12.Morbid obesity. BMI greater than 40. 13.Deep venous thrombosis prophylaxis. SCDs. No chemical anticoagulation due to thrombocytopenia. 14.Disposition. 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 Family is considering withdra wal of care by Wednesday. By that time, she will either need to be trached and/or sent to LTAC versus w [facility]. Sister also at the bedside. She feels that the patient could recover if give her enough time, may not be irreversible. However, she would respect the 's decision at this mukesh e. We will discuss further. The and the patient are talking over with her daughters as well . Plan: We will continue to monitor in ICU setting. MIKE Voice ID: [id number] Report ID: [id number]
[2019-05-20] MEDS: LORazepam 2 MG/ML VIAL IV PRN ×4 (17:04→23:56)
[2019-05-20] MEDS: VITAL HP 1,000 ML BOT FT SCH (23:00)
--- NOTE | 2019-05-20 23:53 | CON ---
Reason For Consultation: Thrombocytopenia. History Of Present Illness: Ms. Barrow is a 58-year-old with multiple comorbidities, who was brought to the emergency room on the 14 of May with complaints of weakness, shortness of breath, and diarrhea with nausea and vomiting for the preceeding month. Ms. Barrow is currently nonverbal and on a ventilator. Her was at her bedside and history was obtained from him. He says that Ms. Barrow developed the diarrhea and nausea, vomiting approximately a month ago. She went to the urgent care, where she received some antibiotics, but her symptoms did not improve. A week later, she saw her primary care physician's PA and further testing was done. However, she never returned to see them in spite of continuing symptoms. On the day she was brought to the emergency room, a family member, who is a nurse, stopped by and noticed that she was exceedingly sick and her blood pressure was low and convinced Ms. Barrow to come to the emergency room. In the emergency room, she was noted to be in respiratory failure and had to be intubated. She was also in acute kidney failure with severe metabolic acidosis and diagnosed with sepsis. CBC on admission revealed a white count of 17.2 thousand, hemoglobin was 13.5 g/dL, and platelet count was 183,000. Over the past 7 days, her platelet count has steadily declined and was 42,000 on the 19 of May along with a declining hemoglobin, which was 8.1 g/dL on the as well. Platelet factor 4 antibody was sent and was negative thereby ruling out HIT (heparin-induced thrombocytopenia). I was consulted for evaluation and management of the thrombocytopenia. There is a history of fever, not quantified according to the . Patient did not have any cough or phlegm. There is no history of dysuria, urgency, or frequency of urine. She has been extremely weak and bed-bound according to the for the past 2-4 weeks. There is no history of bleeding or packed red blood cell transfusions or thrombocytopenia in the past. Review of Systems: Otherwise unremarkable. Past Medical History: Significant for: 1. Morbid obesity. 2. Hypertension. 3. Hyperlipidemia. 4. Diabetes mellitus, type 2. 5. Gastroesophageal reflux disease. 6. Sleep apnea. Past Surgical History: Significant for cholecystectomy and a tonsillectomy. She had surgery for a CSF leak in January of 2019. Current Medications: Albuterol nebs q.6 hours p.r.n., Brovana 15 mcg nebulizer b.i.d., Rocephin 1 g IV q.24 hours, doxycycline 100 mg IV q.12 hours, fentanyl 25 mcg IV q.4 hours p.r.n. for pain, haloperidol 2 mg IV q.4 hours p.r.n. for agitation, lorazepam 2 mg IV q.2 hours p.r.n. for sedation. She is currently on a propofol drip and Zemplar 1 mcg IV q.48 hours. Allergies: TETRACYCLINE, CIPROFLOXACIN, AUGMENTIN, CLINDAMYCIN, AND TO EGGS AND DAIRY. Social And Family History: She lives with her of 37 years. She is a smoker and smoked up to 1 pack per day for the past for 35 to 40 years. Does not drink alcohol. She has 2 daughters, who are in generally good health. Physical Examination: General: Ms. Barrow is in ICU on a ventilator. She was able to open her eyes to verbal command, but not able to fix gaze because of the sedation she is on. General physical examination reveals a morbidly obese lady. HEENT: Pallor. No cyanosis, clubbing, or icterus was noted. There is no evidence of petechiae or bruising. Skin: No petechiae and no evidence of bleeding from catheter site, which includes the right femoral IV site, the left femoral dialysis catheter site or the [place]. Lymph Node: No palpable lymphadenopathy in the neck or supraclavicular areas. Chest: Bilateral vesicular breath sounds reduced at the bases. No rales or rhonchi were heard. Heart: Sounds reveal normal S1, S2. No gallops or murmurs. Abdomen: Soft and not distended. There is no mass palpable. No liver or spleen palpable. Bowel sounds were present. Neurologic: She is sedated with minimal response to verbal stimulation. Laboratory Data: CBC this morning revealed a white count of 11.1 thousand; hemoglobin was 8.2 g/dL, stable for the past 24 hours; platelet count was also stable at 42,000. A manual differential revealed 88% neutrophils with 2% bands. Absolute retic count was normal at 0.03. PTT was mildly elevated at 13.2, INR of 1.12, PTT was 26.3. D-dimer done earlier on the 5th was significantly elevated at 2538. Chemistries reveal a sodium of 141, potassium of 3.9, her BUN and creatinine are down almost to normal at 22 and 0.69 respectively. Blood sugars have been mildly elevated. Iron profile reveals functional iron deficiency. Transferrin saturation 17.9% with a ferritin of 303.5. LDH has been mildly elevated at 386. B12 and folic acid levels were unremarkable. CT of the head, cervical spine, chest, abdomen, and pelvis done on admission revealed no acute fracture. It did show multifocal infiltrates in the lung, left more than right, but no hepatosplenomegaly or lymphadenopathy. Assessment And Plan: 1. Thrombocytopenia. Given the significant elevation in D-dimer and LDH, I suspect that this could be due to an underlying consumptive coagulopathy such as disseminated intravascular coagulation. Another possibility would be a bone marrow suppression due to sepsis and septic shock. Heparin-induced thrombocytopenia was ruled out. Her platelet count has stabilized in the past 24 hours. I expect it to continue to improve as her clinical condition improves. Would suggest to support her with blood platelet transfusion if her platelet count is less than 20,000 or she has active bleeding and platelet count is less than 50,000. 2. Anemia. She has become steadily anemic in addition to the thrombocytopenia, which again suggests a consumptive coagulopathy rather than a pure sepsis-induced thrombocytopenia. LDH is elevated. Haptoglobin is pending at this time. I would suggest to transfuse packed red blood cells if her hemoglobin drops to less than 8 g/dL since she is also in respiratory failure and on ventilator. 3. Septic shock. We would defer to the primary team regarding management of this condition. Overwhelming sepsis with septic shock can blunt the bone marrow response causing a significant decline in blood counts. Thank you for asking me to see her. Please do not hesitate to call me if you have any other questions. AP/MODL Voice ID: [id number] Report ID: [id number] NAM
[2019-05-21] MEDS: IPRATROPIUM BROM 0.5MG/2.5ML NEB SCH ×4 (01:35→19:28)
[2019-05-21] MEDS: HALOPERIDOL LACT 5 MG/ML INJ IV PRN (01:59)
[2019-05-21] MEDS: LORazepam 2 MG/ML VIAL IV PRN ×7 (02:45→22:54)
[2019-05-21] MEDS: FENTANYL CITR 100 MCG/2 ML IV PRN ×3 (03:57→21:51)
[2019-05-21 05:09] LABS: Absolute Lymphocytes (CBC) 1.1 K/uL (0.7-4.9); Basophils % 0.1 % (0-1.3); Hematocrit 23.5 % (36.0-45.0); Lymphocytes % 10.6 % (15.3-44.8); MPV 8.9 fL (7.6-11.3); RBC Red Blood Cell Count 2.93 M/uL (3.86-4.86)
[2019-05-21 05:22] LABS: ALT/SGPT 17 U/L (12-78); AST/SGOT 12 U/L (15-37); Albumin 2.3 g/dL (3.4-5.0); Alkaline Phosphatase 68 U/L (45-117); BUN Blood Urea Nitrogen 29 mg/dL (7-18); Bicarbonate 31 mmol/L (21-32); Bilirubin Total 0.4 mg/dL (0.2-1.0); Glucose Level 159 mg/dL (74-106); Phosphorus 2.5 mg/dL (2.5-4.9); Potassium 3.7 mmol/L (3.5-5.1); Protein, Total 4.7 g/dL (6.4-8.2); Sodium Level 143 mmol/L (136-145)
[2019-05-21 05:26] LABS: Magnesium 1.3 mg/dL (1.8-2.4)
[2019-05-21] MEDS: INSULIN -REGULAR HUMAN 50 UNIT/0.5 ML ML SQ SCH ×4 (05:43→18:07)
[2019-05-21] MEDS ORDERED: Magnesium Sulfate 2gm IVPB 2 G/50 ML BAG IV ONE (05:50)
[2019-05-21] MEDS ORDERED: POTASSIUM PHOS IN 0.9 % NACL 15 MMOL/250 ML BAG IV ONE (05:51)
[2019-05-21 05:54] LABS: Arterial Blood Carboxyhemoglob 1.3 % (0-1.5); Blood O2 Saturation 95.4 % (92-98.5)
[2019-05-21] MEDS: ARFORMOTEROL TARTRATE 15 MCG/2 ML VIAL.NEB NEB SCH ×2 (08:03→19:28)
[2019-05-21] MEDS: THIAMINE 200 MG/2 ML INJ IVP SCH (09:19)
[2019-05-21] MEDS: CEFTRIAXONE/SWI 1gm 1 GM/10 ML SYR IV SCH (09:19)
[2019-05-21] MEDS: METHYLPREDNISOLONE 40 MG INJ IV SCH ×2 (09:19→17:12)
[2019-05-21] MEDS: DOXYCYCLINE 100 MG in NA CHLORIDE 0.9% 100 ML IVPB SCH ×2 (09:19→20:03)
[2019-05-21] MEDS: FUROSEMIDE IV SCH ×2 (09:20→20:04)
[2019-05-21] MEDS: NA CHLORIDE 0.9% IV SCH ×2 (09:20→20:04)
[2019-05-21] MEDS ORDERED: NA CHLORIDE 0.9% 250 ML IV SCH (10:00)
--- NOTE | 2019-05-21 11:07 | RAD REPORT ---
EXAM DESCRIPTION: RAD - Chest Single View - 05/21/2019 6:56 am CLINICAL HISTORY: resp failure Chest pain. COMPARISON: Chest Single View dated 05/20/2019; Chest Single View dated 05/19/2019; Chest Single View [place] 05/18/2019; Chest Single View dated 05/17/2019 FINDINGS: Portable technique limits examination quality. Mild interstitial pulmonary edema seen. The heart is upper limit of normal in size. ET tube tip is ab ove the blake.Enteric tube descends into the upper abdomen.
--- NOTE | 2019-05-21 12:09 | PN ---
Date of Progress Note: 05/21/2019 Subjective: Patient is seen and examined. Chart reviewed and case discussed with RN and Dr. Agustin. Patient is slightly improved, now off propofol. Follows commands. Opens eyes to name. Medications: List reviewed. Physical Examination: Vital Signs: Temperature 98.2, heart rate 78, blood pressure 131/80, respirations 14, O2 of 96% on 3 5% FiO2. General: Asleep, but arousable by name, ill-appearing female, morbidly obese. CV: S1, S2. Regular rate and rhythm. Peripheral pulses present. Respiratory: Diminished breath sounds. Crackles heard. Gastrointestinal: Abdomen is soft, nontender, nondistended. Positive bowel sounds. Extremities: No clubbing or cyanosis. Patient has peripheral edema in upper and lower extremities. Neuro: Moves all 4 extremities. Opens eyes to name, intubated, not sedated. Laboratory Data: Sodium 143, potassium 3.7, chloride 106, CO2 of 31, BUN 29, creatinine 0.65, glucos e 159, calcium 8, phosphorus 2.5, magnesium 1.3, albumin 2.3. WBC 10.4, H and H 7.5 and 23.5, platel ets 46, neutrophils 82%. Stool occult blood is positive. Sputum culture positive for Staphylococcus aureus, methicillin sensitive. Chest x-ray is pending. Assessment And Plan: 58-year-old female with: 1.Septic shock secondary to pneumonia. Sputum culture showing methicillin-sensitive Staphylococcus aureus. Continue with doxycycline and Rocephin. White blood cell count is now normalized. Blood cu lture is negative. Now off Levophed, improving. 2.Acute respiratory failure with hypoxia, on mechanical ventilation, now down to 35% FiO2 off sedati on. Appreciate Dr. Clifford's input. Patient does have some pulmonary edema as well. 3.Acute respiratory distress syndrome. Continue steroids. 4.Metabolic acidosis, resolved. 5.Acute kidney injury, stable, was dialyzed once. Appreciate Nephrology input. 6.Hypomagnesemia. We will replace and monitor. 7.Thrombocytopenia, likely consumptive coagulopathy and secondary to sepsis. Appreciate Dr. Agustin's input. We will transfuse for platelets less than 20. 8.Acute anemia blood loss. Patient does have Hemoccult-positive. We will start on IV PPI and trans fuse 1 unit PRBCs and recheck hemoglobin. 9.Chronic diarrhea, resolved. 10.Diabetes mellitus type 2 with hyperglycemia. Continue sliding scale insulin. Monitor blood gluc ose levels. 11.Morbid obesity. BMI is 44. 12.Deep venous thrombosis prophylaxis, SCDs. No chemical anticoagulation due to thrombocytopenia. 13.Disposition. Day 7 on ventilator. Family needs to make decision regarding trach versus withdraw al of care or LTAC placement. We will discuss further. Patient currently is DNR. /MODL Voice ID: [id number] Report ID: [id number]
--- NOTE | 2019-05-21 12:32 | P.PN ---
Subjective Date of Service: 05/21/19 Chief Complaint: Respiratory failure agitation Subjective: No new changes Subjective Pt admitted with acute respiratory failure, found to have NEVA and acidosis today edema cont to improve will cont current dose of lasix for now Monitor Plt plan to discharge to LTAC will try to remove dialysis catheter tomorrow Physical exam general: intubated , obese Neck; Supple, No elevated JVD hear: RRR, normal S1,2 no murmur or rub Chest: coarse breathing sounds Abdomen: Soft , Nt , reis catheter , Lt femoral catheter Extremities le edema resolved , Upper extremity edema improving , Lt >Rt NEVA likely due to ATN resolved will remove dialysis catheter once Plt count improves Acidosis resolved Septic shock cont to be on Abx and pressers support Anemia 1 PRBC today Edema cont lasix Hypokalemia , and hypomagnesemia replace prn thrombocytopena off heparin could be due to sepsis cont to monitor while off heparin Prognosis Guarded Physical Examination - Vital Signs Temperature: 98.2 F Blood Pressure: 142/86 Pulse: 72 Respirations: 12 Pulse Ox (%): 97 - Studies Microbiology Data (last 24 hrs): 05/14/19 17:03 Blood - Blood Aerobic Blood Culture - Final No growth in 5 days. 05/14/19 17:03 Blood - Blood Anaerobic Blood Culture - Final 05/14/19 17:03 Blood - Blood Gram Stain - Final Medications List Reviewed: Yes Assessment And Plan - Plan NEVA likely due to ATN resolved will remove dialysis catheter once Plt count improves Acidosis resolved Septic shock cont to be on Abx and pressers support Edema cont lasix Hypokalemia , and hypomagnesemia replace prn thrombocytopena off heparin could be due to sepsis and Abx cont to monitor while off heparin Prognosis Guarded
[2019-05-21] MEDS ORDERED: FUROSEMIDE 20 MG/ 2ML VIAL IV ONE (12:34)
[2019-05-21] MEDS ORDERED: MAGNESIUM SULFATE 1 gm IVPB 1 GM/100 ML BAG IV ONE ×2 (15:02→16:51)
[2019-05-21 15:48] LABS: Hematocrit 25.3 % (36.0-45.0)
[2019-05-22] MEDS: INSULIN -REGULAR HUMAN 50 UNIT/0.5 ML ML SQ SCH ×5 (00:06→23:49)
[2019-05-22] MEDS: METHYLPREDNISOLONE 40 MG INJ IV SCH ×3 (00:06→17:09)
[2019-05-22] MEDS: HALOPERIDOL LACT 5 MG/ML INJ IV PRN (00:09)
[2019-05-22] MEDS: VITAL HP 1,000 ML BOT FT SCH (00:13)
[2019-05-22] MEDS: IPRATROPIUM BROM 0.5MG/2.5ML NEB SCH ×4 (02:20→20:25)
[2019-05-22] MEDS: LORazepam 2 MG/ML VIAL IV PRN ×2 (02:58→05:54)
[2019-05-22] MEDS: FENTANYL CITR 100 MCG/2 ML IV PRN ×2 (04:08→09:09)
[2019-05-22 04:56] LABS: Absolute Lymphocytes (CBC) 0.8 K/uL (0.7-4.9); Basophils % 0.2 % (0-1.3); Hematocrit 26.3 % (36.0-45.0); Lymphocytes % 10.3 % (15.3-44.8); MPV 9.4 fL (7.6-11.3); RBC Red Blood Cell Count 3.24 M/uL (3.86-4.86)
[2019-05-22 05:09] LABS: ALT/SGPT 26 U/L (12-78); AST/SGOT 16 U/L (15-37); Albumin 2.5 g/dL (3.4-5.0); Alkaline Phosphatase 64 U/L (45-117); BUN Blood Urea Nitrogen 33 mg/dL (7-18); Bicarbonate 32 mmol/L (21-32); Bilirubin Total 0.4 mg/dL (0.2-1.0); Glucose Level 170 mg/dL (74-106); Magnesium 1.7 mg/dL (1.8-2.4); Potassium 3.5 mmol/L (3.5-5.1); Protein, Total 4.9 g/dL (6.4-8.2); Sodium Level 145 mmol/L (136-145)
[2019-05-22 05:20] LABS: Arterial Blood Carboxyhemoglob 1.2 % (0-1.5); Blood Gas Oxyhemoglobin 92.2 % (94-97); Blood O2 Saturation 94.1 % (92-98.5)
[2019-05-22] MEDS ORDERED: MAGNESIUM SULFATE 1 gm IVPB 1 GM/100 ML BAG IV ONE (07:00)
[2019-05-22] MEDS: ARFORMOTEROL TARTRATE 15 MCG/2 ML VIAL.NEB NEB SCH ×2 (07:30→20:25)
[2019-05-22] MEDS: ALBUTEROL 2.5 MG/3 ML NEB SOL NEB PRN ×3 (07:30→20:25)
[2019-05-22] MEDS ORDERED: POTASSIUM 25 MEQ EFFERV TAB PO ONE (08:00)
--- NOTE | 2019-05-22 08:22 | RAD REPORT ---
EXAM DESCRIPTION: Maria T Single View05/22/2019 6:01 am CLINICAL HISTORY: Respiratory failure COMPARISON: May 21, 2019 FINDINGS: Bilateral pulmonary opacities have partially resolved. . The heart is normal size Endotracheal and nasogastric tubes in good position IMPRESSION: Partial resolution mild interstitial pulmonary edema
--- NOTE | 2019-05-22 08:31 | P.PN ---
Subjective Date of Service: 05/22/19 Chief Complaint: Respiratory failure Patient is doing lot better she is more alert responsive cooperative wants to be extubated hemodynamically stable Review of Systems is unable to be obtained Physical Examination - Vital Signs Temperature: 98.1 F Blood Pressure: 144/84 Pulse: 58 Respirations: 14 Pulse Ox (%): 97 - Physical Exam General: Alert, Cooperative Respiratory: Expiratory wheezes Cardiovascular: No edema, Regular rate/rhythm, Normal S1 S2 - Studies Medications List Reviewed: Yes Assessment & Plan - Problems (Diagnosis) (1) Respiratory failure Current Visit: Yes Status: Acute Plan: Patient admitted with respiratory failure doing much better chest x-ray is now clear labs all reviewed Dc all antibiotics continue with bronchodilators wean and extubate today Qualifiers: Chronicity: acute Respiratory failure complication: hypoxia Qualified Code(s): J96.01 - Acute respiratory failure with hypoxia (2) Thrombocytopenia Current Visit: Yes Status: Acute Plan: Improving
[2019-05-22] MEDS ORDERED: PANTOPRAZOLE 40 MG INJ IVP SCH (09:00)
[2019-05-22] MEDS: FUROSEMIDE IV SCH ×2 (09:15→20:22)
[2019-05-22] MEDS: NA CHLORIDE 0.9% IV SCH ×2 (09:15→20:22)
[2019-05-22] MEDS: PARICALCITOL 2 MCG/ML VIAL IV SCH (11:53)
--- NOTE | 2019-05-22 13:43 | PN ---
Date of Progress Note: 05/22/2019 Subjective: Patient is seen and examined. Chart reviewed and case discussed with RN and Dr. Migue machado Patient to be extubated today. Medications: List reviewed. Physical Examination: Vital Signs: Heart rate 93, blood pressure 120/68, respirations 17, O2 of 98% on 35% FiO2, temperatu re 98.1. General: Intubated, not sedated. Opens eyes to name, follows commands. Morbidly obese female, does not appear to be any acute distress. CV: S1, S2. Regular rate and rhythm. Peripheral pulses present. Respiratory: Diminished breath sounds. No wheezing or stridor. Gastrointestinal: Abdomen is soft, nontender, nondistended. Positive bowel sounds. Extremities: No clubbing, cyanosis. Patient has peripheral edema. Neurologic: Nonfocal. Moves all 4 extremities. Opens eyes to name, intubated, but not sedated. Laboratory Data: Sodium 145, potassium 3.5, chloride 107, CO2 of 32, BUN 33, creatinine 0.61, glucos e 170, calcium 8.1, phosphorus 3, magnesium 1.7, albumin 2.5. WBC 7.9, H and H of 8.6 and 26.3, plat elets 59. Peripheral blood smear shows thrombocytopenia, mild microcytic hyperchromic anemia with mi ld anisopoikilocytosis. Assessment: 58-year-old female with: 1.Septic shock secondary to pneumonia secondary to methicillin-sensitive Staphylococcus aureus on sp utum cultures. Patient is on doxycycline, Rocephin, improved. Blood pressure stable. White count s table. 2.Acute respiratory failure with hypoxia, on mechanical ventilation. Plan is for extubation today. Patient is DNR. Discussed again with . No plans for re-intubation if the patient fails extu bation. 3.Acute respiratory distress syndrome, improved. 4.Metabolic acidosis, resolved. 5.Acute kidney injury, stable. We will plan to remove dialysis catheter now that platelets have imp roved. 6.Hypomagnesemia, stable. 7.Thrombocytopenia, likely due to consumptive coagulopathy, improving. Platelet level 69. Apprecia te Dr. Agustin's input. 8.Acute blood loss anemia. Patient is on IV PPI. Has been transfused 1 unit PRBCs. Hemoglobin sta ble. Hemoccult is positive. We will need outpatient GI workup. 9.Chronic diarrhea, resolved. 10.Diabetes mellitus type 2 with hyperglycemia. Continue with sliding scale insulin. Monitor blood glucose levels. 11.Morbid obesity, BMI 44. 12.Deep venous thrombosis prophylaxis, SCDs. No chemical anticoagulation due to thrombocytopenia. Plan: Extubation today. If does well, will need to be transferred to [facility]. /[place] Voice ID: [id number] Report ID: [id number]
[2019-05-22] MEDS ORDERED: NA CHLORIDE 0.9% 50 ML ONE (20:24)
[2019-05-22] MEDS ORDERED: FAMOTIDINE 20 MG/2 ML VIAL IV SCH (21:00)
--- NOTE | 2019-05-22 23:58 | PN ---
Date of Progress Note: 05/22/2019 Chief Complaint: Acute kidney injury. History Of Present Illness: The patient has history of diabetes mellitus and history of multiple medical problems. She came to the hospital, was found to have severe hyper-azotemia, metabolic acidosis and was started on dialysis. Patient is extubated today. Renal function has improved. Patient has nonoliguric urine output. Dialysis was terminated and renal function remains stable range. There is mild prerenal azotemia. Review of Systems: Patient denies complaints. Physical Examination: Lungs: Diminished breath sounds at bases. Few crackles. Heart: S1, S2. Abdomen: Soft, benign. Extremities: Minimal edema. Laboratory Data: Sodium 145, potassium 3.5, chloride 107, CO2 of 32, BUN 33, creatinine 0.61, glucose 170. Impression And Plan: 1. Acute kidney injury in recovery phase. Patient was taken off dialysis. Renal function has improved to baseline. 2. Diabetes mellitus. Continue insulin. 3. Hypomagnesemia. Magnesium level is 1.7. Continue replacement and monitor electrolytes. 4. Mild legs edema. Continue to reassess and use diuretic as needed. 5. Acute kidney injury due to acute tubular necrosis, resolved. 6. Patient will have dialysis catheter removal done today. 7. Thrombocytopenia. Hematology consultation was requested and pending. TRAV/[place] Voice ID: [id number] Report ID: [id number] NAM
[2019-05-23] MEDS: METHYLPREDNISOLONE 40 MG INJ IV SCH (00:15)
[2019-05-23] MEDS: IPRATROPIUM BROM 0.5MG/2.5ML NEB SCH ×4 (01:50→20:20)
[2019-05-23 05:18] VITALS: BMI 43.1
[2019-05-23 05:33] LABS: Absolute Lymphocytes (CBC) 0.7 K/uL (0.7-4.9); Basophils % 0.1 % (0-1.3); Hematocrit 29.3 % (36.0-45.0); Lymphocytes % 8.2 % (15.3-44.8); RBC Red Blood Cell Count 3.57 M/uL (3.86-4.86)
[2019-05-23] MEDS: INSULIN -REGULAR HUMAN 50 UNIT/0.5 ML ML SQ SCH ×4 (06:00→20:15)
[2019-05-23 06:01] LABS: ALT/SGPT 34 U/L (12-78); AST/SGOT 16 U/L (15-37); Albumin 2.8 g/dL (3.4-5.0); Alkaline Phosphatase 64 U/L (45-117); BUN Blood Urea Nitrogen 30 mg/dL (7-18); Bicarbonate 34 mmol/L (21-32); Bilirubin Total 0.4 mg/dL (0.2-1.0); Glucose Level 130 mg/dL (74-106); Magnesium 2.1 mg/dL (1.8-2.4); Potassium 3.6 mmol/L (3.5-5.1); Protein, Total 5.3 g/dL (6.4-8.2); Sodium Level 145 mmol/L (136-145)
--- NOTE | 2019-05-23 06:59 | RAD REPORT ---
EXAM DESCRIPTION: RAD - Chest Single View - 05/23/2019 6:50 am CLINICAL HISTORY: resp failure Chest pain. COMPARISON: Chest Single View dated 05/22/2019; Chest Single View dated 05/21/2019; Chest Single View d ated 05/20/2019; Chest Single View dated 05/19/2019 FINDINGS: Portable technique limits examination quality. Since the prior examination, the patient has been extubated. Asymmetric mild to moderate bilateral pu lmonary opacities are present representing pulmonary edema. Heart is mildly enlarged in size. No disp laced fractures.
[2019-05-23] MEDS: ALBUTEROL 2.5 MG/3 ML NEB SOL NEB PRN ×2 (08:02→13:50)
[2019-05-23] MEDS: ARFORMOTEROL TARTRATE 15 MCG/2 ML VIAL.NEB NEB SCH ×2 (08:02→20:20)
--- NOTE | 2019-05-23 08:36 | P.PN ---
Subjective Date of Service: 05/23/19 Chief Complaint: COPD exacerbation Patient is doing much better was extubated yesterday hemodynamically stable Review of Systems is unable to be obtained Physical Examination - Vital Signs Temperature: 97.1 F Blood Pressure: 148/99 Pulse: 79 Respirations: 25 Pulse Ox (%): 100 - Physical Exam General: Alert, Cooperative Respiratory: Expiratory wheezes Cardiovascular: No edema, Regular rate/rhythm - Studies Medications List Reviewed: Yes Assessment & Plan - Problems (Diagnosis) (1) Respiratory failure Current Visit: Yes Status: Acute Plan: Patient admitted with respiratory failure Re extubated doing well transfer to the floor Qualifiers: Chronicity: acute Respiratory failure complication: hypoxia Qualified Code(s): J96.01 - Acute respiratory failure with hypoxia (2) Thrombocytopenia Current Visit: Yes Status: Acute Plan: Resolved resume Lovenox
[2019-05-23] MEDS ORDERED: ENOXAPARIN 40 MG/0.4 ML SQ SCH (09:00)
[2019-05-23] MEDS ORDERED: ASPIRIN EC 81 MG TAB PO SCH (09:00)
[2019-05-23] MEDS ORDERED: AMLODIPINE 10 MG TAB PO SCH (09:00)
[2019-05-23] MEDS: predniSONE 10 MG TAB PO SCH ×2 (10:15→20:10)
[2019-05-23] MEDS: cloNIDine HCL 0.1 MG TAB PO SCH ×2 (10:15→20:11)
[2019-05-23] MEDS: acetaZOLAMIDE 250 MG TAB PO SCH ×2 (10:15→20:10)
[2019-05-23] MEDS ORDERED: POTASSIUM CL SA 10 MEQ TAB PO ONE (11:36)
--- NOTE | 2019-05-23 11:54 | P.PN ---
Subjective Date of Service: 05/23/19 Chief Complaint: COPD exacerbation Subjective: Improving (Patient was extubated yesterday) Physical Examination - Vital Signs Temperature: 97.1 F Blood Pressure: 134/86 Pulse: 98 Respirations: 25 Pulse Ox (%): 100 - Physical Exam General: Alert, Cooperative HEENT: Atraumatic Neck: Supple Respiratory: Crackles/rales (To the bases bilateral) Cardiovascular: Normal pulses, Regular rate/rhythm Gastrointestinal: Normal bowel sounds, Soft and benign, Non-distended Musculoskeletal: No tenderness, No warmth Integumentary: No warmth, No cyanosis Neurological: Normal speech, Normal strength at 5/5 x4 extr, Normal tone, Normal affect - Studies Medications List Reviewed: Yes Assessment & Plan Discharge Plan: LTAC (Versus longterm facility) Plan to discharge in: 24 Hours Physician Review Additional Text: Impression: Septic shock secondary to pneumonia with sputum culture positive for staph aureus and COPD exacerbation Acute on chronic respiratory failure with hypoxia secondary to COPD exacerbation and pneumonia Metabolic acidosis with acute renal injury Thrombocytopenia likely consumptive coagulopathy Acute blood-loss anemia Chronic diarrhea Diabetes mellitus type 2 with hyperglycemia History of CFS leak with repair Plan: Septic shock secondary to pneumonia with sputum culture positive for Staph aureus and COPD exacerbation: Case discussed with pulmonology. Patient had atypical pneumonia. No need for antibiotic therapy at this time. Continue with COPD treatment. Patient on oral steroid and treatments. Will continue to wean off oxygen. Will have physical therapy and occupational therapy evaluate patient. Await approval for long-term acute care facility placement verses skilled placement. Acute on chronic respiratory failure with hypoxia secondary to COPD exacerbation and pneumonia: Patient has improved. Will continue monitor closely. Continue COPD medication. Patient no longer on antibiotic therapy as recommended by pulmonology. Metabolic acidosis with acute renal injury: Renal function has improved. Will monitor this closely. Thrombocytopenia likely consumptive coagulopathy: This also has improved. Patient on DVT prophylaxis-Lovenox. Acute blood-loss anemia: Patient has received 1 unit of blood. Continue monitor closely. Maintain hemoglobin above 7.0. Chronic diarrhea: This appears resolved. Diabetes mellitus type 2 with hyperglycemia: Continue Accu-Cheks. Sliding scale in place. History of CFS leak with repair: Patient has follow up at [facility]. Time Spent Managing Pts Care (In Minutes): 55
--- NOTE | 2019-05-23 15:45 | P.DS ---
Admission Date: 05/14/19 Discharge Date: 05/23/19 Primary Care Provider: Dr. Reynolds Disposition: [facility]ED [facility] Discharge Condition: GOOD Reason for Admission: COPD exacerbation Consultations: Pulmonary-Dr. Clifford Nephrology-Dr. Barrientos Procedures: CT Scan: FINDINGS: Brain: No significant white matter changes. No focal mass effect. Granda-white matter differentiation is within normal limits. No hemorrhage. Ventricles: No ventriculomegaly or midline shift. Extra-axial spaces: No extra-axial collection or hemorrhage. Paranasal sinuses and mastoid air cells: Postsurgical changes of the paranasal sinuses on the left. Mild to moderate left maxillary and sphenoid sinus mucosal thickening. Left sphenoid sinus Bilateral mastoid air cell and right middle ear opacification. Vessels: There is atherosclerotic disease of the internal carotid arteries bilaterally. Bones: Unremarkable Soft tissues: Unremarkable IMPRESSION: 1. No acute intracranial or extra-axial abnormality. 2. Right otomastoiditis and left mastoiditis. 3. Other findings as above. Follow up CXR: COMPARISON: Chest Single View dated 05/16/2019; Chest Single View dated 05/15/2019 ; Chest Single View dated 05/14/2019; Chest Single View dated 05/14/2019 FINDINGS: Portable technique limits examination quality. Bilateral pulmonary opacities are present, slightly asymmetric and greater on the right. These appear slightly improved since the prior study. The heart is normal in size. ET tube tip is above the blake. Enteric tube descends in the stomach. Medical Problem List: Septic shock secondary to pneumonia with sputum culture positive for staph aureus and COPD exacerbation Acute on chronic respiratory failure with hypoxia secondary to COPD exacerbation and pneumonia Metabolic acidosis with acute renal injury Thrombocytopenia likely consumptive coagulopathy Acute blood-loss anemia Chronic diarrhea Diabetes mellitus type 2 with hyperglycemia History of CFS leak with repair Obstructive sleep apnea on CPAP Brief History of Present Illness: 58-year-old female presented to the emergency room with severe respiratory failure. Patient had been complaining of shortness of breath over several days with worsening symptoms. In the ER patient was evaluated. Patient had metabolic acidosis with acute on chronic respiratory failure. Patient was admitted to ICU for further evaluation and treatment. Patient did require intubation. Hospital Course: Patient presented with increasing shortness of breath. Patient was found to have septic shock related to pneumonia. Sputum culture was positive for Staph aureus. Acute on chronic respiratory failure with hypoxia further complicated her condition. This was likely related to the pneumonia and COPD exacerbation. Patient was evaluated by nephrology and pulmonology. Patient was intubated upon initial evaluation. During the course of her stay her condition slowly improved. Patient was placed on IV antibiotic therapy. Patient was ultimately extubated. Patient also had metabolic acidosis with acute renal injury. This improved. Once extubated the patient condition improved. She was evaluated for long-term acute care facility placement. The patient was approved. At discharge she will continue her treatment for her respiratory condition at the long-term acute care facility. At discharge patient remains on COPD medication , oral steroid and treatments. She will continue to wean off oxygen. Patient will continue with physical therapy and occupational therapy. Case discussed with pulmonology. At discharge no antibiotic was required. This can be further evaluated and monitored closely at the long-term acute care facility. If required antibiotic may need to be re-initiated. During the course of her stay patient also had anemia. Patient required a 1 unit of blood. Hemoglobin stable at this time. Patient with diabetes mellitus type 2 with hyperglycemia. This has remained stable. Patient remains on Accu-Cheks and sliding scale. Patient with history of CFS leak with prior repair. Patient is followed by [facility] neurology. This has remained stable. Recommend follow up with neurology to further evaluate. Patient with history of obstructive sleep apnea on CPAP. Patient will continue with CPAP at night. Vital Signs/Physical Exam: Temp Pulse Resp BP Pulse Ox 97.0 F 87 22 H 119/75 95 05/23/19 14:07 05/23/19 14:07 05/23/19 14:07 05/23/19 14:07 05/23/19 14:07 General: Alert, In no apparent distress, Oriented x3, Cooperative HEENT: Atraumatic Neck: Supple Respiratory: Clear to auscultation bilaterally Cardiovascular: Normal pulses, Regular rate/rhythm Gastrointestinal: Normal bowel sounds, Soft and benign, Non-distended, No masses , No rebound, No guarding Musculoskeletal: No erythema, No tenderness, No warmth Integumentary: No erythema, No warmth, No cyanosis Neurological: Normal speech, Normal strength at 5/5 x4 extr, Normal tone Laboratory Data at Discharge: WBC 8.2 K/uL (4.3-10.9) 05/23/19 04:49 Hgb 9.6 g/dL (12.0-15.0) L 05/23/19 04:49 Hct 29.3 % (36.0-45.0) L 05/23/19 04:49 Plt Count 121 K/uL (152-406) L D 05/23/19 04:49 PT 13.2 SECONDS (9.5-12.5) H 05/20/19 04:38 INR 1.12 05/20/19 04:38 APTT 26.3 SECONDS (24.3-36.9) 05/20/19 04:38 Sodium 145 mmol/L (136-145) 05/23/19 04:49 Potassium 3.6 mmol/L (3.5-5.1) 05/23/19 04:49 BUN 30 mg/dL (7-18) H 05/23/19 04:49 Creatinine 0.54 mg/dL (0.55-1.3) L 05/23/19 04:49 Glucose 130 mg/dL (74-106) H 05/23/19 04:49 Uric Acid 17.8 mg/dL (2.6-6.0) H D 05/15/19 04:35 Phosphorus 3.0 mg/dL (2.5-4.9) 05/22/19 04:35 Magnesium 2.1 mg/dL (1.8-2.4) 05/23/19 04:49 Total Bilirubin 0.4 mg/dL (0.2-1.0) 05/23/19 04:49 AST 16 U/L (15-37) 05/23/19 04:49 ALT 34 U/L (12-78) 05/23/19 04:49 Alkaline Phosphatase 64 U/L (45-117) 05/23/19 04:49 Troponin I < 0.02 ng/mL (0.0-0.045) 05/15/19 11:00 Lipase 280 U/L (73-393) 05/14/19 16:51 Home Medications: Amlodipine Besylate 10 mg PO DAILY 10/29/14 Aspirin [Aspirin EC] 81 mg PO DAILY 10/29/14 Cholecalciferol (Vitamin D3) [Vitamin D 2,000 Unit Tab] 2,000 unit PO BID Desloratadine [Clarinex] 5 mg PO DAILY 10/29/14 Esomeprazole Magnesium [Nexium 24Hr] 40 mg PO DAILY 10/29/14 Metformin HCl [Glucophage] 1,000 mg PO BID 10/29/14 Metoprolol Succinate [Toprol Xl] 100 mg PO BID 10/29/14 Clonidine HCl [Catapres] 0.1 mg PO BID 05/14/19 Olmesartan/Hydrochlorothiazide [Olmesartan-Hctz 40-25 mg Tab] 1 each PO DAILY Pramipexole [Mirapex] 0.5 mg PO BEDTIME 05/14/19 acetaZOLAMIDE [Diamox] 250 mg PO BID 05/14/19 Patient Discharge Instructions: Patient will be transferred to long-term acute care facility for further management of her respiratory condition. Continue current medication at this time. Diet: AHA Activity: Fall precautions Time spent managing pt's care (in minutes): 55
[2019-05-23] MEDS ORDERED: METFORMIN HCL 500 MG TAB PO SCH (17:00)
--- NOTE | 2019-05-23 17:35 | PN ---
Date of Progress Note: 05/23/2019 Subjective: The patient was admitted with acute kidney injury, acidosis. The patient required dialy sis single session. Physical Examination: Vital Signs: Blood pressure 132/86, pulse of 98. Patient had good urine output of 1700. Chest: Clear to auscultation. Heart: S1, S2 regular. Abdomen: Soft, nontender. Extremities: No edema. Neuro: Alert. No focal confused. Laboratory Data: WBC 8.2, H and H 9.6/29.3, platelets 121. Sodium 145, potassium 3.6, bicarb 34, BU N 30, creatinine 0.5, calcium 8.4. Current Medications: The patient on include: 1.Aspirin. 2.Lovenox. 3.Amlodipine. 4.Clonidine. 5.Acetazolamide. 6.Zofran. 7.Prednisone. Assessment And Plan: 1.Acute kidney injury secondary to prerenal superimposed with metformin, recovered, resolved, nonoli guric. We will continue to monitor. 2.Hypertension, controlled, optimal. Continue current treatment. 3.Acidosis secondary to metformin. GI; diarrhea, resolved. 4.Hypomagnesemia. We will supplement. 5.Vitamin D deficiency. Start the patient on ergocalciferol. 6.Alkalosis. Patient was started on acetazolamide. We will follow up. 7.Diabetes as by primary. 8.Altered mental status secondary to metabolic. Follow up with the primary. LASHAWN/V[place] Voice ID: [id number] Report ID: [id number]
[2019-05-23 20:16] VITALS: BP 117/66
[2019-05-23 20:58] VITALS: TEMP 98.3
[2019-05-23] MEDS ORDERED: PRAMIPEXOLE 0.25 MG TAB PO SCH (21:00)
[2019-05-23 21:38] VITALS: O2SAT 96
[2019-05-24] MEDS ORDERED: VITAMIN D 1000 UNIT TAB PO SCH (09:00)
== END 2019-05-23 23:33 | DRG 870 ==
LOC: ER 16:22 → ERHOLD 19:02 → 3RD-ICU 20:24 → 4TH 05-23 13:46
PROVIDERS: ADMIT Internal Medicine; ATTEND Family Medicine
PROC: 5A1955Z Respiratory Ventilation, Greater than 96 Consecutive Hours (ICD-10-PCS; principal; 2019-05-14)
PROC: 0T9B70Z Drainage of Bladder with Drainage Device, Via Natural or Artificial Opening (ICD-10-PCS; 2019-05-14)
PROC: 0BH17EZ Insertion of Endotracheal Airway into Trachea, Via Natural or Artificial Opening (ICD-10-PCS; 2019-05-14)
PROC: 06HN33Z Insertion of Infusion Device into Left Femoral Vein, Percutaneous Approach (ICD-10-PCS; 2019-05-15)
PROC: 5A1D70Z Performance of Urinary Filtration, Intermittent, Less than 6 Hours Per Day (ICD-10-PCS; 2019-05-15)
PROC: 5A09357 Assistance with Respiratory Ventilation, Less than 24 Consecutive Hours, Continuous Positive Airway Pressure (ICD-10-PCS; 2019-05-22)
DX: A41.01 Sepsis due to Methicillin susceptible Staphylococcus aureus (principal); R65.21 Severe sepsis with septic shock; N17.0 Acute kidney failure with tubular necrosis; J96.21 Acute and chronic respiratory failure with hypoxia; E43 Unspecified severe protein-calorie malnutrition; J69.0 Pneumonitis due to inhalation of food and vomit; E87.2 Acidosis; E87.1 Hypo-osmolality and hyponatremia; Z68.41 Body mass index [BMI] 40.0-44.9, adult; N25.81 Secondary hyperparathyroidism of renal origin; N39.0 Urinary tract infection, site not specified; D62 Acute posthemorrhagic anemia; J44.1 Chronic obstructive pulmonary disease with (acute) exacerbation; I10 Essential (primary) hypertension; E11.9 Type 2 diabetes mellitus without complications; G47.33 Obstructive sleep apnea (adult) (pediatric); K21.9 Gastro-esophageal reflux disease without esophagitis; K52.9 Noninfective gastroenteritis and colitis, unspecified; I89.0 Lymphedema, not elsewhere classified; F17.200 Nicotine dependence, unspecified, uncomplicated; E83.39 Other disorders of phosphorus metabolism; E87.6 Hypokalemia; E66.01 Morbid (severe) obesity due to excess calories; D69.6 Thrombocytopenia, unspecified; E83.42 Hypomagnesemia; D64.9 Anemia, unspecified; E83.51 Hypocalcemia; Z66 Do not resuscitate; E11.65 Type 2 diabetes mellitus with hyperglycemia
CPT/HCPCS: 31500; 36415; 36430; 70450; 71045; 71250; 72125; 76536; 76770; 80048; 80053; 80069; 80076; 80202; 80307; 80320; 80329; 81003; 81015; 82010; 82274; 82533; 82550; 82570; 82607; 82652; 82728; 82746; 82805; 82947; 83010; 83520; 83540; 83605; 83615; 83690; 83735; 83880; 83930; 83935; 83970; 84100; 84132; 84145; 84156; 84300; 84439; 84443; 84466; 84484; 84550; 85014; 85018; 85025; 85044; 85379; 85384; 85576; 85610; 85730; 86021; 86038; 86160; 86225; 86430; 86704; 86706; 86803; 86850; 86900; 86901; 87040; 87070; 87077; 87086; 87088; 87186; 87205; 87324; 87340; 87389; 87449; 87522; 87804; 90935; 93005; 94002; 94003; 94640; 94660; 96361; 96365; 96367; 96375; 99285; C9113; J0456; J0610; J0690; J0692; J0696; J1630; J1644; J1650; J1652; J1720; J1940; J2150; J2250; J2370; J2501; J2704; J2920; J3010; J3370; J3411; J3475; J7030; J7040; J7060; J7120; J7512; J7605; P9016; P9047

== ENCOUNTER 2019-07-12 17:15 | Emergency (ER) | payer BC ==
--- OUTSIDE RECORDS SUMMARY | 2019-07-12 17:18 | XMS REPORT ---
:1960 Author Organization [facility] Address [address] [place] [address] Care Team Providers Name Role Phone Unavailable Unavailable Unavailable Payers Payer Name Policy Type Policy Number Effective Date Expiration Date Problems This patient has no known problems. Allergies, Adverse Reactions, Alerts Allergy Name Allergy Status Severity Reaction(s) Onset Inactive Treating Comments Type Date Date Clinician Tetracyclines DA Active U 417 00:00: 00 lactose DA Active U 0 417 00:00: 00 clindamycin DA Active U 417 00:00: 00 clavulanic acid DA Active U 417 00:00: 00 ciprofloxacin DA Active MO 17 00:00: 00 amoxicillin DA Active U 17 00:00: 00 egg DA Active U 17 00:00: 00 Medications This patient has no known medications. Results Test Description Test Time Test Comments Text Results Atomic Results Result Comments - CT MAXIFAC W/O 2018-08-31 13:39:00 Name: LENIN FAITH [facility] [place] : 1960 Age/S: 57 / F [id number] Unit #: [id number] Loc: [place] [address] Phys: Lawrence Bryan III, MD Acct: [id number] Dis Date: Status: REG CLI PHONE #: [phone] Exam Date: 08/31/2018 1226 FAX #: Reason: SINUS LANDMARK EXAMS: CPT: [id number] CT MAXIFAC W/O CONTRAST 73114 Location: T 18 CT of the sinuses, [...] PAGE 1 Signed Report (CONTINUED) Name: LENIN FAITH [facility] : 1960 Age/S: 57 / F [id number] [facility] Unit #: [id number] Loc: [place] [address] Phys: Lawrence Bryan III, MD Acct: [id number] Dis Date: Status: REG CLI PHONE #: [phone] Exam Date: 08/31/2018 1225 FAX #: Reason: SINUS LANDMARK EXAMS: CPT: [id number] CT MAXIFAC W/O CONTRAST 44872 <Continued> and there is also opacification along [...] 2 Signed Report (CONTINUED) Name: LENIN FAITH [place] : 1960 Age/S: 57 / F [id number] Unit #: [id number] Loc: [place] [address] Phys: Lawrence Bryan III, MD Acct: [id number] Dis Date: Status: REG CLI PHONE #: [phone] Exam Date: 08/31/2018 1226 FAX #: Reason: SINUS LANDMARK EXAMS: CPT: [id number] CT MAXIFAC W/O CONTRAST 85654 <Continued> at 1339 Reported and signed by: Belén Guerrero M.D. CC: Oswaldo Reynolds MD; Lawrence Bryan III, MD Technologist:Dario Francisco, RT(R)(CT); Kr CTDI: DLP: Trnscb Date/Time: 08/31/2018 (2242) [email or web address] Orig Print D/T: S: 08/31/2018 (8022) PAGE 3 Signed Report
--- NOTE | 2019-07-12 17:42 | ER ---
Nurse's Notes [facility] Name: Gini Barrow Age: 58 yrs Sex: Female : 1960 Arrival Date: 07/12/2019 Time: 17:19 Bed 5 Private MD: Diagnosis: Essential (primary) hypertension;Subconjunctival Hemorrhage- left Presentation: 07/11 17:23 Chief complaint: Patient states: "my eye is red and they said that is a sign for aa5 coronavirus so I am concerned". Pt states "Also my blood pressure has been running high". Pt reports highest reading was 180/121. Pt denies cough/congestion/chest pain/fever. 17:23 Coronavirus screen: Patient denies fever greater than 100.4F, cough, shortness of aa5 breath, or difficulty breathing. Ebola Screen: Patient negative for fever greater than or equal to 101.5 degrees Fahrenheit, and additional compatible Ebola Virus Disease symptoms. Initial Sepsis Screen: Does the patient meet any 2 criteria? No. Patient's initial sepsis screen is negative. Does the patient have a suspected source of infection? No. Patient's initial sepsis screen is negative. Risk Assessment: Do you want to hurt yourself or someone else? Patient reports no desire to harm self or others. 17:23 Acuity: AVELINA 3 aa5 17:23 Method Of Arrival: Wheelchair aa5 Historical: - Allergies: 17:25 Augmentin; aa5 17:25 Ciprofloxacin; aa5 17:25 Clindamycin; aa5 17:25 Dairy; aa5 17:25 Egg Derived; aa5 17:25 TETRACYCLINES; aa5 - PMHx: 17:25 Diabetes - NIDDM; Hypertension; Periodic Limb Movement Disorder; aa5 - Social history:: Patient/guardian denies using alcohol, street drugs, IV drugs, tobacco products. - Family history:: Mother has/had cancer, hypertension, Father has/had CVA or TIA, hypertension. Screenin:51 Abuse screen: Denies threats or abuse. Nutritional screening: No deficits noted. hb Tuberculosis screening: No symptoms or risk factors identified. Fall Risk Secondary diagnosis (15 points) impaired mobility. Assessment: 17:51 Reassessment: Patient appears in no apparent distress at this time. No changes from hb previously documented assessment. Patient and/or family updated on plan of care and expected duration. Pain level reassessed. Patient is alert, oriented x 3, equal unlabored respirations, skin warm/dry/pink. Vital Signs: 17:23 BP 179 / 103; Pulse 77; Resp 18 S; Temp 98.4(TE); Pulse Ox 97% on R/A; Pain 0/10; aa5 ED Course: 17:19 Patient arrived in ED. fj1 17:23 Arm band placed on. aa5 17:23 Bed in low position. Call light in reach. hb 17:25 Rk Haywood DO is Attending Physician. ms3 17:37 Triage completed. aa5 17:43 Michaelle Kaur, RN is Primary Nurse. hb 17:50 No provider procedures requiring assistance completed. Patient did not have IV access hb during this emergency room visit. Administered Medications: No medications were administered Outcome: 17:41 Discharge ordered by MD. ms3 17:50 Discharged to home via wheelchair. hb 17:50 Condition: stable 17:50 Discharge instructions given to patient, Instructed on discharge instructions, follow up and referral plans. Demonstrated understanding of instructions, follow-up care. 17:51 Patient left the ED. hb Signatures: Evangelina Oliveira RN RN [facility] Michaelle Kaur, RN RN Gama Garcia [facility] Rk Haywood DO DO ms3
--- NOTE | 2019-07-12 17:52 | EDPHYS ---
Physician Documentation [facility] Name: Gini Barrow Age: 58 yrs Sex: Female : 1960 Arrival Date: 07/12/2019 Time: 17:19 Bed 5 Private MD: ED Physician Rk Haywood HPI: 07/11 17:41 This 58 yrs old Female presents to ER via Wheelchair with complaints of Eye ms3 Problem, Blood Pressure Problem. 17:41 The patient is experiencing redness, The patient sustained None. to the right eye, ms3 caused by an unknown mechanism. Onset: The symptoms/episode began/occurred yesterday. Duration: the symptoms are continuous. Aggravated by nothing. Alleviated by nothing. Associated signs and symptoms: Pertinent negatives: fever, headache. Severity of symptoms: in the emergency department the symptoms are unchanged. Pt also notes that her SBP has been 170-180 today. Pt states she called her PA and was told to take her Metoprolol and then sent to the ED. Pt denies CP, SOB, nausea, vomiting, or fevers.. Historical: - Allergies: 17:25 Augmentin; aa5 17:25 Ciprofloxacin; aa5 17:25 Clindamycin; aa5 17:25 Dairy; aa5 17:25 Egg Derived; aa5 17:25 TETRACYCLINES; aa5 - PMHx: 17:25 Diabetes - NIDDM; Hypertension; Periodic Limb Movement Disorder; aa5 - Social history:: Patient/guardian denies using alcohol, street drugs, IV drugs, tobacco products. - Family history:: Mother has/had cancer, hypertension, Father has/had CVA or TIA, hypertension. ROS: 17:41 Constitutional: Negative for fever, and chills. ENT: Negative for injury, pain, and ms3 discharge, Neck: Negative for injury, pain, and swelling, Cardiovascular: Negative for chest pain, and palpitations. Respiratory: Negative for shortness of breath, cough, wheezing, and pleuritic chest pain, Abdomen/GI: Negative for abdominal pain, nausea, vomiting, diarrhea, and constipation, Back: Negative for injury and pain, MS/Extremity: Negative for injury and deformity, Skin: Negative for injury, rash, and discoloration, Neuro: Negative for headache, weakness, numbness, tingling. 17:41 All other systems are negative. ms3 Exam: 17:41 Constitutional: This is a well developed, well nourished patient who is awake, alert, ms3 and in no acute distress. Head/Face: Normocephalic, atraumatic. Eyes: Pupils equal round and reactive to light, extra-ocular motions intact. Lids and lashes normal. Conjunctiva and sclera are non-icteric and not injected. Cornea within normal limits. Periorbital areas with no swelling, redness, or edema. 17:41 Neck: Trachea midline, no cervical lymphadenopathy. Supple, full range of motion ms3 without nuchal rigidity, or vertebral point tenderness. No Meningismus. Cardiovascular: Regular rate and rhythm with a normal S1 and S2. No gallops, murmurs, or rubs. Normal PMI, no JVD. No pulse deficits. Respiratory: Lungs have equal breath sounds bilaterally, clear to auscultation and percussion. No rales, rhonchi or wheezes noted. No increased work of breathing, no retractions or nasal flaring. Abdomen/GI: Soft, non-tender, with normal bowel sounds. No distension or tympany. No guarding or rebound. No evidence of tenderness throughout. Back: No spinal tenderness. No costovertebral tenderness. Full range of motion. Skin: Warm, dry with normal turgor. Normal color with no rashes, no lesions, and no evidence of cellulitis. MS/ Extremity: Pulses equal, no cyanosis. Neurovascular intact. Full, normal range of motion. Neuro: Awake and alert, GCS 15, oriented to person, place, time, and situation. Cranial nerves II-XII grossly intact. Motor strength 5/5 in all extremities. Sensory grossly intact. Cerebellar exam normal. Normal gait. 17:41 Eyes: Conjunctiva: subconjunctival hemorrhage(s), seen in the right eye. Vital Signs: 17:23 BP 179 / 103; Pulse 77; Resp 18 S; Temp 98.4(TE); Pulse Ox 97% on R/A; Pain 0/10; aa5 MDM: 17:25 Patient medically screened. ms3 17:41 Differential diagnosis: Corneal abrasion of right eye. Hypertension. Data reviewed: ms3 vital signs, nurses notes. Counseling: I had a detailed discussion with the patient and/or guardian regarding: the historical points, exam findings, and any diagnostic results supporting the discharge/admit diagnosis, the presence of at least one elevated blood pressure reading (>120/80) during this emergency department visit, the need for outpatient follow up, a family practitioner, to return to the emergency department if symptoms worsen or persist or if there are any questions or concerns that arise at home. ED course: Discussed PE with pt. Pt to continue her Metoprolol, Amlodipine and Clonidine as prescribed. Pt to keep log of BP and report to her PMD. Pt understands/ agrees with plan. All questions answered. Return precautions discussed.. Administered Medications: No medications were administered Disposition: 17:41 Co-signature as Attending Physician, Rk Haywood DO. ms3 Disposition: 07/12/19 17:41 Discharged to Home. Impression: Essential (primary) hypertension, Subconjunctival Hemorrhage- left. - Condition is Stable. - Discharge Instructions: Hypertension, Subconjunctival Hemorrhage. - Medication Reconciliation Form, Thank You Letter, Antibiotic Education, Prescription Opioid Use form. - Follow up: Private Physician; When: 2 - 3 days; Reason: Re-evaluation by your physician. - Problem is new. - Symptoms are unchanged. Signatures: Evangelina Oliveira RN RN aa5 Michaelle Kaur RN RN hb Rk Haywood DO DO ms3 Corrections: (The following items were deleted from the chart) 17:47 17:41 Eyes: Positive for redness, Right eye subconjunctival hemorrhage, ms3 ms3 17:51 17:41 07/12/2019 17:41 Discharged to Home. Impression: Essential (primary) hb hypertension; Subconjunctival Hemorrhage- left. Condition is Stable. Forms are Medication Reconciliation Form, Thank You Letter, Antibiotic Education, Prescription Opioid Use. Follow up: Private Physician; When: 2 - 3 days; Reason: Re-evaluation by your physician. Problem is new. Symptoms are unchanged. ms3
[2019-07-12 17:58] VITALS: BP 179/103; TEMP 98.4; O2SAT 97
== END 2019-07-12 17:51 | disposition home or self-care (01) ==
LOC: ER 17:15
DX: I10 Essential (primary) hypertension (principal); E11.9 Type 2 diabetes mellitus without complications; Z88.1 Allergy status to other antibiotic agents; Z91.011 Allergy to milk products; Z91.012 Allergy to eggs
CPT/HCPCS: 99281

== ENCOUNTER 2024-05-03 20:29 | Inpatient (IN) | payer BC ==
[2024-05-03 21:20] LABS: Absolute Basophils 0.1 K/uL (0-0.5); Absolute Lymphocytes (CBC) 1.8 K/uL (0.7-4.9); Absolute Monocytes 1.3 K/uL (0.1-1.3); Basophils % 0.4 % (0-1.3); Eosinophils % 0.2 % (0-4.4); Hematocrit 40.3 % (36.0-45.0); Hemoglobin 13.5 g/dL (12.0-15.0); Lymphocytes % 11.6 % (15.3-44.8); MCH 28.5 pg (27.0-35.0); MCHC 33.5 g/dL (32.0-36.0); MCV 85.1 fL (80-100); MPV 6.9 fL (7.6-11.3); Monocytes % 8.5 % (3.3-12.3); Neutrophils % 79.3 % (41.7-73.7); Nucleated Red Blood Cells % 0.1 % (0-0); Platelets 250 thou/uL (152-406); RBC Red Blood Cell Count 4.73 M/uL (3.86-4.86)
[2024-05-03 21:42] LABS: ALT/SGPT 18 U/L (13-56); Albumin/Globulin Ratio 0.8 (1.1-1.8); Alkaline Phosphatase 98 U/L (45-117); Anion Gap 8.7 mEq/L (5.0-15.0); BUN Blood Urea Nitrogen 13 mg/dL (7-18); Bicarbonate 29 mEq/L (21-32); Bilirubin Total 0.7 mg/dL (0.2-1.0); Globulin 3.8 g/dL (2.3-3.5); Glomerular Filtration Rate 80 ml/min (=/>90); Glucose Level 140 mg/dL (74-106); Lipase 42 U/L (13-75); Potassium 3.7 mEq/L (3.5-5.1); Protein, Total 6.8 g/dL (6.4-8.2); Sodium Level 132 mEq/L (136-145)
[2024-05-03 21:45] LABS: AST/SGOT < 10 U/L (15-37)
[2024-05-03 21:52] LABS: Specific Gravity 1.011 (1.005-1.030); Sqamous Epithelial None Seen /HPF (None Seen); Urine Bacteria 20-50 /HPF (<20); Urine Bilirubin NEGATIVE (Negative); Urine Blood 1+ (Negative); Urine Clarity Extremely Turbid (Clear); Urine Color Light-Orange (Yellow); Urine Crystals Unidentified Few /HPF (None Seen); Urine Culture Reflex Order REFLEXED; Urine Glucose NEGATIVE (Negative); Urine Ketones NEGATIVE (Negative); Urine Microscopic Reflex YN ORDER UMIC; Urine Mucus Slight /HPF (None Seen); Urine Nitrite 2+ (Negative); Urine Protein TRACE (Negative); Urine RBC 21-50 /HPF (None Seen); Urine Urobilinogen Normal (Normal); Urine WBC >50 /HPF (<5); Urine WBC Clump Moderate /HPF (None Seen); Urine pH 5.5 (5.0-7.0)
--- NOTE | 2024-05-03 22:24 | RAD REPORT ---
EXAMINATION: CT ABDOMEN AND PELVIS WITH CONTRAST CLINICAL INDICATION: ABD PAIN TECHNIQUE: CT abdomen and pelvis was performed, after the administration of IV contrast, as per [facility] protocol. Axial, sagittal and coronal reconstructions were obtained. One or more of the following dose reduction techniques were used: Automated exposure control, adjustment of the mA and k V according to patient size, and iterative reconstruction. Unless otherwise specified, incidental findings do not require dedicated imaging follow-up. COMPARISON: No prior exam. FINDINGS: LOWER CHEST: The visualized lung bases are clear. LIVER: Mild fatty liver is present. No focal lesion or biliary dilatation is seen. Multiple small lo w-density hepatic lesions likely cysts. Cholecystectomy clips. SPLEEN: Normal size. No focal lesion. PANCREAS: Small 10 mm low-density lesion in the pancreatic neck. ADRENALS: Nodularity is present right adrenal gland, largest measuring 18 mm. Normal left adrenal gla nd. KIDNEYS: Normal size and contour. No hydronephrosis. Bilateral renal lesions which are either benign in appearance or too small to accurately characterize but statistically benign. GASTROINTESTINAL TRACT: No evidence of free air, significant intra-abdominal free fluid, bowel obstru ction or abscess. Sigmoid diverticulosis coli without diverticulitis. APPENDIX: Appendix not visualized, but no inflammatory changes in region of appendix. LYMPH NODES: No lymphadenopathy. MUSCULOSKELETAL: Significant lower lumbar degenerative changes are present. Thoracolumbar vertebral b ana m fusion and degenerative changes also seen. ADDITIONAL FINDINGS: Urinary bladder is decompressed by means of Najera catheter. IMPRESSION: No acute or concerning abnormalities seen in the abdomen or pelvis. 10 mm indeterminate pancreatic lesion as detailed. Nonemergent MRI pancreas follow-up suggested.
[2024-05-03] MEDS ORDERED: CEFTRIAXONE 1000 MG/VIAL ONE (22:54)
[2024-05-03 23:25] LABS: PT Prothrombin Time 13.6 SECONDS (9.4-12.5); PTT, Activated Partial Thromb 32.1 SECONDS (24.3-36.9); Protime INR 1.3
--- NOTE | 2024-05-03 23:54 | ER ---
Nurse's Notes [facility] Name: Gini Barrow Age: 63 yrs Sex: Female : 1960 Arrival Date: 05/03/2024 Time: 20:29 Bed 20 Private MD: Diagnosis: UTI/ Urinary tract infection, site not specified;Retention of urine, unspecified Presentation: 05/03 20:41 Chief complaint: EMS states: urinary retention since 1000. Hx of renal dysfunction. cp4 Coronavirus screen: Client denies travel out of the [place] in the last 14 days. At this time, the client does not indicate any symptoms associated with coronavirus-19. Ebola Screen: Patient negative for fever greater than or equal to 101.5 degrees Fahrenheit, and additional compatible Ebola Virus Disease symptoms Patient denies exposure to infectious person. Patient denies travel to an Ebola-affected area in the 21 days before illness onset. No symptoms or risks identified at this time. Initial Sepsis Screen: Does the patient meet any 2 criteria? HR > 90 bpm. No. Patient's initial sepsis screen is negative. Does the patient have a suspected source of infection? No. Patient's initial sepsis screen is negative. Risk Assessment: Do you want to hurt yourself or someone else? Patient reports no desire to harm self or others. Onset of symptoms was May 03, 2024 at 10:00. 20:41 Method Of Arrival: EMS: [facility] cp4 20:41 Acuity: AVELINA 3 cp4 Triage Assessment: 20:44 General: Appears in no apparent distress. uncomfortable, Behavior is calm, cooperative, cp4 appropriate for age. Pain: Complains of pain in back and abdomen Pain does not radiate. Pain currently is 10 out of 10 on a pain scale. EENT: No signs and/or symptoms were reported regarding the EENT system. Neuro: Level of Consciousness is awake, alert, obeys commands, Oriented to person, place, time, situation. Cardiovascular: Patient's skin is warm and dry. Respiratory: Airway is patent Respiratory effort is even, unlabored. GI: No signs and/or symptoms were reported involving the gastrointestinal system. : Reports inability to void, since 1000. :. Derm: No signs and/or symptoms reported regarding the dermatologic system. Musculoskeletal: No signs and/or symptoms reported regarding the musculoskeletal system. Historical: - Allergies: 20:44 Clindamycin; cp4 20:44 TETRACYCLINES; cp4 20:44 Septra; cp4 20:44 Dairy; cp4 20:44 Egg Derived; cp4 20:44 Ciprofloxacin; cp4 - PMHx: 20:44 Diabetes - NIDDM; Hypertension; Periodic Limb Movement Disorder; cp4 - Immunization history:: Adult Immunizations up to date. - Infectious Disease History:: Denies. - Social history:: Smoking status: Patient denies any tobacco usage or history of. Screenin:47 [facility] ED Fall Risk Assessment (Adult) History of falling in the last 3 months, cp4 including since admission No falls in past 3 months (0 pts) Confusion or Disorientation No (0 pts) Intoxicated or Sedated No (0 pts) Impaired Gait No (0 pts) Mobility Assist Device Used No (0 pt) Altered Elimination Yes (1 pt) Score/Fall Risk Level 0 - 2 = Low Risk Oriented to surroundings, Maintained a safe environment, Assessed \T\ reinforced patient's understanding of fall precautions, Hourly rounding (assess needs \T\ fall precautionary measures) done. Abuse screen: Denies threats or abuse. Abuse screen: Denies injuries from another. Nutritional screening: No deficits noted. Tuberculosis screening: No symptoms or risk factors identified. Assessment: 20:47 Reassessment: No changes from previously documented assessment. cp4 23:00 Reassessment: Patient appears in no apparent distress at this time. Patient and/or cp4 family updated on plan of care and expected duration. Pain level reassessed. Patient is alert, oriented x 3, equal unlabored respirations, skin warm/dry/pink. Reassessment:. 05/04 00:55 Reassessment: Patient appears in no apparent distress at this time. Patient and/or cp4 family updated on plan of care and expected duration. Pain level reassessed. Patient is alert, oriented x 3, equal unlabored respirations, skin warm/dry/pink. Vital Signs: 05/03 20:41 BP 109 / 68; Pulse 92; Resp 20; Temp 99.4; Pulse Ox 95% ; Weight 136.08 kg; Height 5 cp4 ft. 4 in. ; Pain 10/10; 23:28 BP 119 / 68; Pulse 89; Resp 18; Pulse Ox 100% ; cp4 05/04 00:53 BP 97 / 63; Pulse 92; Resp 18; Pulse Ox 98% ; cp4 02:51 BP 103 / 75; Pulse 100; Resp 16; Pulse Ox 97% ; cp4 05/03 20:41 Body Mass Index 51.49 (136.08 kg, 162.56 cm) cp4 05/03 20:41 Pain Scale: Adult cp4 ED Course: 05/03 20:39 Patient arrived in ED. cp4 20:40 Betty Felix FNP-C [facility]. kb 20:40 Jay Bowie MD is Attending Physician. kb 20:40 Mitali Orellana is Primary Nurse. cp4 20:44 Triage completed. cp4 20:44 Arm band placed on right wrist. Patient placed in an exam room, on a stretcher. cp4 20:47 Bed in low position. Call light in reach. Side rails up X2. cp4 20:47 No provider procedures requiring assistance completed. cp4 21:18 Initial lab(s) drawn, by me, sent to lab. Urine collected: Najera catheter specimen, cp4 cloudy. Najera cath inserted, using sterile technique, 18 Fr., by me, balloon inflated, to gravity drainage. Inserted saline lock: 20 gauge in left antecubital area, using aseptic technique. Blood collected. Flushed with 10 mL NS. 22:06 CT Abd/Pelvis - IV Contrast Only In Process Unspecified. EDMS 22:47 Initial lab(s) drawn, by me, sent to lab. First set of blood cultures drawn by me. cp4 23:05 Second set of blood cultures drawn. cp4 23:53 Timbo Delgadillo MD is Hospitalizing Provider. kb 05/04 02:51 Provided Education on: admission. cp4 02:51 Patient admitted, IV remains in place. cp4 11:42 Primary Nurse role handed off by Mitali Orellana bp 11:42 Oswaldo Gallegos, VERITO is Primary Nurse. bp Administered Medications: 05/03 22:58 Drug: Rocephin IV 1 grams IV at calculated rate once; Given slow IV push per pharmacy cp4 instructions Route: IV; Rate: calculated rate; Site: left antecubital; 23:49 Follow up: Response: No adverse reaction; IV Status: Completed infusion cp4 Medication: 20:47 VIS not applicable for this client. cp4 Output: 22:00 Urine: 1000ml (Najera); Total: 1000ml. cp4 23:13 Urine: 700ml (Najera); Total: 1700ml. cp4 Outcome: 23:54 Decision to Hospitalize by Provider. kb 05/04 02:50 Admitted to ER Hold. Please see [facility] for further documentation. cp4 Condition: stable Instructed on the need for admit, 14:51 Patient left the ED. bp Signatures: Dispatcher [employer] EDBetty Wan, CHANNEL SPECIALIST-C CHANNEL SPECIALIST-Oswaldo Moon, RN RN Mitali Bucio cp4 Corrections: (The following items were deleted from the chart) 05/03 20:45 20:44 Allergies: Augmentin; cp4 cp4
--- NOTE | 2024-05-03 23:54 | EDPHYS ---
Physician Documentation [facility] Name: Gini Barrow Age: 63 yrs Sex: Female : 1960 Arrival Date: 05/03/2024 Time: 20:29 Bed 20 Private MD: ED Physician Jay Bowie HPI: 05/03 23:32 This 63 yrs old Female presents to ER via EMS with complaints of Urinary Retention. kb 23:32 Pt is a 63 year old female who presents for urinary retention that started today. kb States she urinated a small amount this morning, but hasn't been able to urinate since about 1030. Reports pain to lower abd due to full bladder. Denies fever, nausea, vomiting. . Historical: - Allergies: 20:44 Clindamycin; cp4 20:44 TETRACYCLINES; cp4 20:44 Septra; cp4 20:44 Dairy; cp4 20:44 Egg Derived; cp4 20:44 Ciprofloxacin; cp4 - PMHx: 20:44 Diabetes - NIDDM; Hypertension; Periodic Limb Movement Disorder; cp4 - Immunization history:: Adult Immunizations up to date. - Infectious Disease History:: Denies. - Social history:: Smoking status: Patient denies any tobacco usage or history of. ROS: 23:32 Constitutional: As per HPI kb Exam: 23:20 Constitutional: This is a well developed, well nourished patient who is awake, alert, kb and in no acute distress. Head/Face: Normocephalic, atraumatic. ENT: Moist Mucous membranes Cardiovascular: Regular rate Respiratory: Respirations even and unlabored. No increased work of breathing. Talking in full sentences Skin: Warm, dry with normal turgor. Normal color. MS/ Extremity: Pulses equal, no cyanosis. Neurovascular intact. Full, normal range of motion. Neuro: Awake and alert, GCS 15, oriented to person, place, time, and situation. 23:20 ECG was reviewed by the Attending Physician. 23:20 Abdomen/GI: Inspection: obese Bowel sounds: normal, Palpation: soft, in all quadrants, moderate abdominal tenderness, in the suprapubic area, right lower quadrant and left lower quadrant, Vital Signs: 20:41 BP 109 / 68; Pulse 92; Resp 20; Temp 99.4; Pulse Ox 95% ; Weight 136.08 kg; Height 5 cp4 ft. 4 in. ; Pain 10/10; 23:28 BP 119 / 68; Pulse 89; Resp 18; Pulse Ox 100% ; cp4 05/04 00:53 BP 97 / 63; Pulse 92; Resp 18; Pulse Ox 98% ; cp4 02:51 BP 103 / 75; Pulse 100; Resp 16; Pulse Ox 97% ; cp4 05/03 20:41 Body Mass Index 51.49 (136.08 kg, 162.56 cm) cp4 05/03 20:41 Pain Scale: Adult cp4 MDM: 05/03 20:40 Medical Screening Exam initiated kb 23:33 Differential diagnosis: UTI, kidney stone, cystitis, acute renal failure. Data kb reviewed: vital signs, nurses notes. Consideration of Admission/Observation Patient was admitted/placed on observation. Escalation of care including admission/observation considered. Historians other than the Patient: EMS: [facility]. Counseling: I had a detailed discussion with the patient and/or guardian regarding the historical points, exam findings, and any diagnostic results supporting the discharge/admit diagnosis, lab results, radiology results, the need for further work-up and treatment in the hospital. 23:53 Management of patient was discussed with the following: Hospitalist: Dr Delgadillo accepts kb pt for admission. Care significantly affected by the following chronic conditions: Diabetes, Hypertension. 05/03 20:44 Order name: CBC with Diff; Complete Time: 21:44 kb 05/03 20:44 Order name: CMP; Complete Time: 21:45 kb 05/03 20:44 Order name: Lipase; Complete Time: 21:45 kb 05/03 20:44 Order name: Urinalysis w/ reflexes; Complete Time: 21:58 kb 05/03 21:49 Order name: Blood Culture Adult (2) kb 05/03 21:49 Order name: Lactate w/ 2H reflex if indic.; Complete Time: 23:49 kb 05/03 21:49 Order name: Protime (+inr); Complete Time: 23:25 kb 05/03 21:49 Order name: Ptt, Activated; Complete Time: 23:25 kb 05/03 21:55 Order name: Urine Culture EDMS 05/04 01:16 Order name: Urinalysis w/ reflexes EDMS 05/04 01:16 Order name: CBC with Automated Diff EDMS 05/04 01:16 Order name: CBC with Automated Diff EDMS 05/04 01:16 Order name: Comprehensive Metabolic Panel EDMS 05/04 01:16 Order name: Comprehensive Metabolic Panel EDMS 05/04 07:50 Order name: Glucose, Ancillary Testing EDMS 05/04 07:51 Order name: Basic Metabolic Panel EDMS 05/04 12:01 Order name: Glucose, Ancillary Testing EDMS 05/03 20:44 Order name: CT Abd/Pelvis - IV Contrast Only; Complete Time: 22:29 kb 05/03 21:49 Order name: EKG; Complete Time: 21:50 kb 05/03 20:44 Order name: IV Saline Lock; Complete Time: 21:18 kb 05/03 20:44 Order name: Labs collected and sent; Complete Time: 21:18 kb 05/03 20:44 Order name: Najera; Complete Time: 21:18 kb 05/03 21:49 Order name: Cardiac monitoring; Complete Time: 22:34 kb 05/03 21:49 Order name: EKG - Nurse/Tech; Complete Time: 23:17 kb 05/03 21:49 Order name: O2 Per Protocol; Complete Time: 22:34 kb 05/03 21:49 Order name: O2 Sat Monitoring; Complete Time: 22:34 kb 05/03 21:49 Order name: Vital Signs; Complete Time: 22:34 kb EC:20 Rate is 87 beats/min. Rhythm is regular. QRS Munson is Normal. AL interval is normal at kb 142 msec. QRS interval is normal at 74 msec. QT interval is normal at 406 msec. Administered Medications: 22:58 Drug: Rocephin IV 1 grams IV at calculated rate once; Given slow IV push per pharmacy cp4 instructions Route: IV; Rate: calculated rate; Site: left antecubital; 23:49 Follow up: Response: No adverse reaction; IV Status: Completed infusion cp4 Disposition: 05/04 03:06 Co-signature as Attending Physician, Jay Bowie MD I agree with the assessment sp4 and plan of care. I reviewed the patient's care provided by Advanced Practice Provider \T\ agree w/ the diagnosis \T\ care plan. I personally saw the pt \T\ performed a substantive portion of the visit, incldng all aspects of the (History/Exam/Medical Decision Making). Disposition Summary: 05/03/24 23:54 Hospitalization Ordered Notes: Hospitalization Status: Observation kb Provider: Timbo Delgadillo Condition: Stable kb Problem: new kb Symptoms: are unchanged kb Bed/Room Type: Standard kb Location: Telemetry/MedSurg (observation)(05/04/24 12:35) em1 Room Assignment: 229(05/04/24 14:12) em1 Diagnosis - UTI/ Urinary tract infection, site not specified kb - Retention of urine, unspecified kb Forms: - Medication Reconciliation Form kb - SBAR form kb - Leadership Thank You Letter kb Signatures: Dispatcher [employer] EDMS Betty Felix, SUPERVISOR [employer]ARET[employer] MAKING DEPARTMENT-C SUPERVISOR CIGARET[employer] MAKING DEPARTMENT-Umair Mccray em1 Lee Ann Centeno RN RN vc1 Mariah Campos RN RN kb3 Jay Bowie MD MD sp4 Mitali Orellana cp4 Corrections: (The following items were deleted from the chart) 05/03 20:45 20:44 Allergies: Augmentin; cp4 cp4 05/04 01:20 05/03 23:54 Telemetry/MedSurg (observation) kb vc1 05/04 01:20 05/03 23:54 kb vc1 05/04 09:26 01:20 [facility] ER HOLD vc1 em1 09:26 01:20 ERHOLD- vc1 em1 10:02 09:26 Telemetry/MedSurg (observation) em1 kb3 10:02 09:26 406 em1 kb3 10:02 10:02 kb3 kb3 12:35 10:02 [facility] ER HOLD kb3 em1 12:35 10:02 ERHOLD- kb3 em1 14:12 12:35 406 em1 em1
[2024-05-04] MEDS ORDERED: ACETAMINOPHEN 325 MG TABLET PO PRN (01:11)
[2024-05-04] MEDS ORDERED: ONDANSETRON 4 MG/2 ML VIAL IV PRN (01:11)
--- NOTE | 2024-05-04 01:11 | P.HP ---
Certification for Inpatient Patient admitted to: Inpatient With expected LOS: >2 Midnights Practitioner: I am a practitioner with admitting privileges, knowledge of patient current condition, hospital course, and medical plan of care. Services: Services provided to patient in accordance with Admission requirements found in Title 42 Section 412.3 of the Code of Federal Regulations Patient History Date of Service: 05/04/24 Reason for admission: UTI History of Present Illness: 63 yrs old Female with past medical history of diabetes, hypertension, pediatric limb movement disorder who presents to ER with complaints of urinary retention. Symptoms started today . She states that she urinated a small amount this morning, but hasn't been able to urinate since about 1030. Reports pain to lower abd due to full bladder. Denies fever, nausea, vomiting. No fever or chills. No sick contacts. Denies any dysuria. No history of fall. Denies any numbness or weakness. The patient was assessed in the ER and had to be placed on a Najera catheter and was admitted for further management Allergies amoxicillin trihydrate [From Augmentin] Allergy (Verified 05/20/19 19:18) Unknown ciprofloxacin [From Cipro] Allergy (Verified 05/20/19 19:18) Unknown ciprofloxacin HCl [From Cipro] Allergy (Verified 05/20/19 19:18) Unknown potassium clavulanate [From Augmentin] Allergy (Verified 05/20/19 19:18) Unknown Tetracyclines Allergy (Verified 05/20/19 19:18) Unknown Home medications list reviewed: Yes Home Medications: Amlodipine Besylate 10 mg PO DAILY 10/29/14 Aspirin [Aspirin EC] 81 mg PO DAILY 10/29/14 Cholecalciferol (Vitamin D3) [Vitamin D 2,000 Unit Tab] 2,000 unit PO BID 10/29/14 Desloratadine [Clarinex] 5 mg PO DAILY 10/29/14 Esomeprazole Magnesium [Nexium 24Hr] 40 mg PO DAILY 10/29/14 Metformin HCl [Glucophage] 1,000 mg PO BID 10/29/14 Metoprolol Succinate [Toprol Xl] 100 mg PO BID 10/29/14 Olmesartan/Hydrochlorothiazide [Olmesartan-Hctz 40-25 mg Tab] 1 each PO DAILY 05/14/19 Pramipexole [Mirapex] 0.5 mg PO BEDTIME 05/14/19 acetaZOLAMIDE [Diamox] 250 mg PO BID 05/14/19 cloNIDine HCL [Catapres] 0.1 mg PO BID 05/14/19 - Past Medical/Surgical History Diabetic: Yes Past Medical History: Reviewed- Non-Contributory -: Hypertenion -: GERD -: Sleep apnea -: Claustrophobia -: DM -: morbid obesity -: lymphedema Past Surgical History: Reviewed- Non-Contributory -: Tonsilectomy -: Cholecystectomy - Social History Smoking Status: Never smoker Alcohol use: No Review of Systems 10-point ROS is otherwise unremarkable Physical Examination - Vital Signs Temperature: 98.7 F Blood Pressure: 102/68 Pulse: 96 Respirations: 18 Pulse Ox (%): 94 - Physical Exam General: Alert, In no apparent distress, Oriented x3 HEENT: Atraumatic, Normocephalic Neck: Supple Respiratory: Clear to auscultation bilaterally, Normal air movement Cardiovascular: Regular rate/rhythm, Normal S1 S2 Capillary refill: <2 Seconds Gastrointestinal: Soft and benign, W/out hepatosplenomegaly, Tenderness Musculoskeletal: No clubbing, No swelling Integumentary: No rashes, No breakdown Neurological: Normal speech, Normal strength at 5/5 x4 extr Lymphatics: No axilla or inguinal lymphadenopathy Urinary: Najera catheter - Studies Laboratory Data (last 24 hrs) 05/03/24 05/03/24 05/03/24 22:47 21:13 21:13 WBC 15.10 H Hgb 13.5 Hct 40.3 Plt Count 250 PT 13.6 H INR 1.30 APTT 32.1 Sodium 132 L Potassium 3.7 BUN 13 Creatinine 0.83 Glucose 140 H Total Bilirubin 0.7 AST < 10 L ALT 18 Alkaline Phosphatase 98 Lipase 42 Assessment and Plan - Plan Retention of urine Status post Najera catheter placement UTI Leukocytosis Started on IV antibiotic Will obtain cultures Change antibiotic as per sensitivity Need follow-up with urology/PROGRAMMER as outpatient Hyponatremia Electrolytes monitor and replace accordingly IV hydration Hypertension Antihypertensives titrated Continue home medications and titrate as needed Hyperlipidemia Continue statin Diabetes Insulin sliding scale Accu-Chek before every meal and at bedtime GI/DVT prophylaxis Advanced directive full code Discharge Plan: Home Plan to discharge in: 48 Hours - Advance Directives Does patient have a Living Will: No Does patient have a Durable POA for Healthcare: No - Code Status/Comfort Care Code Status: Full Code Time Spent Managing Pts Care (In Minutes): 48
[2024-05-04 02:49] VITALS: BMI 51.5
[2024-05-04] MEDS: POTASSIUM 25 MEQ EFFERV TAB PO ONE (05:55)
[2024-05-04] MEDS: POTASSIUM CL SA 10 MEQ TAB PO ONE (05:59)
[2024-05-04] MEDS ORDERED: POTASSIUM CL SA 10 MEQ TAB PO ONE (06:01)
[2024-05-04] MEDS: FLU (Fluarix Triv) TS24-25(6MOS UP)/PF 45 MCG/0.5 ML Syringe IM ONE (07:45)
[2024-05-04 07:50] LABS: Anion Gap 8.8 mEq/L (5.0-15.0); Potassium 3.8 mEq/L (3.5-5.1)
[2024-05-04] MEDS: CEFTRIAXONE 1,000 MG in NA CHLORIDE 0.9% 50 ML IVPB SCH (09:00)
[2024-05-04] MEDS: ENOXAPARIN 40 MG/0.4 ML SQ SCH (09:00)
[2024-05-04] MEDS: CEFEPIME 2 GM in NA CHLORIDE 0.9% 100 ML IV SCH (09:05)
[2024-05-04] MEDS: MORPHINE 2 MG/ML SYR IV PRN (09:05)
[2024-05-04] MEDS ORDERED: MORPHINE 2 MG/ML SYR ONE (09:29)
[2024-05-04] MEDS ORDERED: CEFEPIME 2 GM VIAL ONE (09:29)
[2024-05-04] MEDS ORDERED: ENOXAPARIN 40 MG/0.4 ML SQ ONE (09:30)
[2024-05-04] MEDS ORDERED: NA CHLORIDE 0.9% 100 ML ONE (09:30)
[2024-05-04] MEDS: CODEINE 30MG/APAP 300MG TAB PO PRN (11:30)
[2024-05-04] MEDS ORDERED: CODEINE 30MG/APAP 300MG TAB ONE (11:53)
[2024-05-04] MEDS ORDERED: DIAZEPAM 2 MG TABLET ONE (13:15)
[2024-05-04] MEDS: DIAZEPAM 2 MG TABLET PO SCH (21:21)
[2024-05-04] MEDS: NA CHLORIDE 0.9% 1,000 ML IV SCH (21:25)
[2024-05-05 07:27] LABS: Absolute Eosinophils 0.1 K/uL (0-0.5); Absolute Lymphocytes (CBC) 1.5 K/uL (0.7-4.9); Absolute Monocytes 0.7 K/uL (0.1-1.3); Absolute Neutrophil 5.9 K/uL (1.8-8.0); Basophils % 0.2 % (0-1.3); Eosinophils % 1.1 % (0-4.4); Hemoglobin 11.7 g/dL (12.0-15.0); Lymphocytes % 18.3 % (15.3-44.8); MCH 29.2 pg (27.0-35.0); MCHC 34.3 g/dL (32.0-36.0); MCV 85.1 fL (80-100); MPV 7.2 fL (7.6-11.3); Monocytes % 8.3 % (3.3-12.3); Neutrophils % 72.1 % (41.7-73.7); Platelets 183 thou/uL (152-406); Red Cell Distribution Width 15.9 % (12.1-15.2)
[2024-05-05 07:35] LABS: Albumin 2.5 g/dL (3.4-5.0); Albumin/Globulin Ratio 0.7 (1.1-1.8); Anion Gap 6.5 mEq/L (5.0-15.0); Bilirubin Total 0.4 mg/dL (0.2-1.0); Globulin 3.6 g/dL (2.3-3.5); Potassium 3.5 mEq/L (3.5-5.1); Protein, Total 6.1 g/dL (6.4-8.2)
[2024-05-05] MEDS: TAMSULOSIN 0.4 MG SR CAP PO SCH (09:32)
--- NOTE | 2024-05-05 15:10 | EKG ---
Test Date: 2024-05-03 Test Time: 23:09:40 Director Financial Systems: RV MEASUREMENT RESULTS: Intervals: Rate: 87 DE: 142 QRSD: 74 QT: 338 QTc: 406 [place]: P: 39 DE: 142 QRS: 19 T: 45 INTERPRETIVE STATEMENTS: Normal sinus rhythm Cannot rule out Anterior infarct, age undetermined Abnormal ECG Compared to ECG 05/14/2019 17:38:15 Myocardial infarct finding now present ST (T wave) deviation no longer present Electronically Signed On 05-05-24 15:06:57 MASTER BARBER by Harman Goodman
[2024-05-05] MEDS: cloNIDine HCL 0.1 MG TAB PO SCH (21:03)
[2024-05-05] MEDS: METOPROLOL TAR 50 MG TAB PO SCH (21:03)
[2024-05-05] MEDS: ROPINIROLE HCL 1 MG TAB PO SCH (21:03)
[2024-05-05] MEDS: PREGABALIN 75 MG CAP PO SCH (22:16)
[2024-05-06] MEDS: methocarbamoL 500 MG TAB PO PRN ×2 (03:11→18:38)
[2024-05-06 08:41] LABS: Absolute Eosinophils 0.2 K/uL (0-0.5); Absolute Monocytes 0.5 K/uL (0.1-1.3); Absolute Neutrophil 5.2 K/uL (1.8-8.0); Basophils % 0.4 % (0-1.3); Hematocrit 35.7 % (36.0-45.0); Hemoglobin 11.9 g/dL (12.0-15.0); Lymphocytes % 25.2 % (15.3-44.8); MCH 28.3 pg (27.0-35.0); MCHC 33.3 g/dL (32.0-36.0); MCV 85.2 fL (80-100); MPV 7.5 fL (7.6-11.3); Neutrophils % 65.4 % (41.7-73.7); Platelets 221 thou/uL (152-406); RBC Red Blood Cell Count 4.19 M/uL (3.86-4.86); Red Cell Distribution Width 15.5 % (12.1-15.2)
--- NOTE | 2024-05-06 08:53 | P.PN ---
Date of Service: 05/05/24 subjective Patient is on bedrest, PT, OT eval ordered, unable to transfer independently due to lumbar compression fracture Review of Systems 10-point ROS is otherwise unremarkable Physical Examination - Vital Signs reviewed - Physical Exam General: Alert, In no apparent distress, Oriented x3 morbidly obese HEENT: Atraumatic, Normocephalic Neck: Supple Respiratory: Clear to auscultation bilaterally, Normal air movement Cardiovascular: Regular rate/rhythm, Normal S1 S2 Capillary refill: <2 Seconds Gastrointestinal: Soft and benign, W/out hepatosplenomegaly, Tenderness Musculoskeletal: No clubbing, No swelling, max assist, Integumentary: No rashes, No breakdown Neurological: Normal speech, Normal strength at 5/5 x4 extr Lymphatics: No axilla or inguinal lymphadenopathy Urinary: Najera catheter Assessment and Plan - Plan Retention of urine Status post Najera catheter placement Acute cystitis with hematuria Leukocytosis likely secondary to UTI Started on IV antibiotic on cefepime 2 mg IV twice daily Urine cultures E. coli Change antibiotic as per sensitivity Need follow-up with urology/INDUSTRIAL ROOFER HELPER as outpatient Flomax added Hyponatremia Electrolytes monitor and replace accordingly IV hydration History lumbar compression fracture History of falls Morbid obesity BMI 51 Severe deconditioning on bedrest, Patient was at home with home health, PT, halfway, Max assist with PT, OT eval ordered Pancreatic lesion 10 mm indeterminate pancreatic lesion as detailed. Hypertension Antihypertensives titrated Continue home medications and titrate as needed Hyperlipidemia Continue statin Diabetes Insulin sliding scale Accu-Chek before every meal and at bedtime GI/DVT prophylaxis Advanced directive full code Discharge Plan: Home Plan to discharge in: 48 Hours - Advance Directives Does patient have a Living Will: No Does patient have a Durable POA for Healthcare: No - Code Status/Comfort Care Code Status: Full Code Time Spent Managing Pts Care (In Minutes): 25
[2024-05-06 09:30] LABS: Albumin 2.8 g/dL (3.4-5.0); Albumin/Globulin Ratio 0.8 (1.1-1.8); Anion Gap 7.9 mEq/L (5.0-15.0); Bilirubin Total 0.4 mg/dL (0.2-1.0); Globulin 3.7 g/dL (2.3-3.5); Potassium 3.9 mEq/L (3.5-5.1); Protein, Total 6.5 g/dL (6.4-8.2)
--- NOTE | 2024-05-06 17:04 | P.PN ---
Date of Service: 05/06/24 subjective Patient is on bedrest, PT, OT eval ordered, unable to transfer independently due to lumbar compression fracture Failed voiding trial, Najera had to be replaced, Review of Systems 10-point ROS is otherwise unremarkable Physical Examination - Vital Signs reviewed - Physical Exam General: Alert, In no apparent distress, Oriented x3 morbidly obese, tearful, HEENT: Atraumatic, Normocephalic Neck: Supple Respiratory: Clear to auscultation bilaterally, Normal air movement Cardiovascular: Regular rate/rhythm, Normal S1 S2 Capillary refill: <2 Seconds Gastrointestinal: Soft and benign, W/out hepatosplenomegaly, Tenderness Musculoskeletal: No clubbing, No swelling, max assist, back pain pain with range of motion Integumentary: No rashes, No breakdown Neurological: Normal speech, Normal strength at 5/5 x4 extr Lymphatics: No axilla or inguinal lymphadenopathy Urinary: Najera catheter Assessment and Plan - Plan Retention of urine Status post Najera catheter placement Acute cystitis with hematuria Leukocytosis likely secondary to UTI Started on IV antibiotic on cefepime 2 mg IV twice daily Urine cultures E. coli Change antibiotic as per sensitivity Need follow-up with urology/COLORER MACHINE as outpatient Flomax added Hyponatremia Electrolytes monitor and replace accordingly IV hydration History lumbar compression fracture History of falls Morbid obesity BMI 51 Severe deconditioning on bedrest, Patient was at home with home health, PT, usp, Max assist with PT, OT eval ordered Pancreatic lesion 10 mm indeterminate pancreatic lesion as detailed. Hypertension Antihypertensives titrated Continue home medications and titrate as needed Hyperlipidemia Continue statin Diabetes Insulin sliding scale Accu-Chek before every meal and at bedtime GI/DVT prophylaxis Advanced directive full code Discharge Plan: Home Plan to discharge in: 48 Hours - Advance Directives Does patient have a Living Will: No Does patient have a Durable POA for Healthcare: No - Code Status/Comfort Care Code Status: Full Code Time Spent Managing Pts Care (In Minutes): 25
[2024-05-06] MEDS: BUSPIRONE HCL 5 MG TABLET PO SCH (21:00)
[2024-05-06] MEDS: METOPROLOL TAR 50 MG TAB PO SCH (21:00)
[2024-05-06] MEDS ORDERED: TAMSULOSIN 0.4 MG SR CAP PO SCH (21:00)
[2024-05-06] MEDS: ROPINIROLE HCL 1 MG TAB PO SCH (21:36)
[2024-05-06] MEDS: TAMSULOSIN 0.4 MG SR CAP PO SCH (21:37)
[2024-05-06] MEDS: PREGABALIN 75 MG CAP PO SCH (21:38)
[2024-05-07] MEDS ORDERED: LACTOBACILLUS COMBO NO 10 PO SCH (09:00)
[2024-05-07] MEDS: ZINC SULFATE 220 MG CAP PO SCH (09:00)
[2024-05-07] MEDS ORDERED: HOME MED 1 EA UNK (Potassium Chloride [Klor-Con] 20 MEQ Packet) PO SCH (09:00)
[2024-05-07] MEDS ORDERED: BUSPIRONE HCL 7.5 MG PO SCH ×2 (09:00)
[2024-05-07] MEDS: FUROSEMIDE 20 MG TABLET PO SCH (09:00)
[2024-05-07] MEDS ORDERED: HOME MED 1 EA UNK (Omeprazole [Omeprazole] 20 MG Tablet.Dr) PO SCH (09:00)
[2024-05-07] MEDS: BUSPIRONE HCL 15 MG TABLET PO SCH (09:30)
[2024-05-07] MEDS: LACTOBACILLUS/ACIDOPHILUS TAB PO SCH (09:30)
[2024-05-07] MEDS: ASPIRIN 81 MG CHEWABLE TABLET PO SCH (09:31)
[2024-05-07] MEDS: CYANOCOBALAMIN 1,000 MCG TAB PO SCH (09:32)
[2024-05-07] MEDS: POTASSIUM CL SA 10 MEQ TAB PO SCH (09:35)
[2024-05-07] MEDS: LORATADINE 10 MG TAB PO SCH (09:35)
[2024-05-07] MEDS: PANTOPRAZOLE 40MG TABLET PO SCH (11:29)
--- NOTE | 2024-05-07 15:29 | P.DS ---
Admission Date: 05/04/24 Discharge Date: 05/16/24 Disposition: DC HOME/HOME HEALTH CARE Discharge Condition: GOOD Reason for Admission: UTI Brief History of Present Illness: 63 yrs old Female with past medical history of diabetes, hypertension, pediatric limb movement disorder who presents to ER with complaints of urinary retention. Symptoms started today . She states that she urinated a small amount this morning, but hasn't been able to urinate since about 1030. Reports pain to lower abd due to full bladder. Denies fever, nausea, vomiting. No fever or chills. No sick contacts. Denies any dysuria. No history of fall. Denies any numbness or weakness. The patient was assessed in the ER and had to be placed on a Najera catheter and was admitted for further management - Physical Exam General: Alert, In no apparent distress, Oriented x3 HEENT: Atraumatic, Normocephalic Neck: Supple Respiratory: Clear to auscultation bilaterally, Normal air movement Cardiovascular: Regular rate/rhythm, Normal S1 S2 Capillary refill: <2 Seconds Gastrointestinal: Soft and benign, W/out hepatosplenomegaly, Tenderness Musculoskeletal: No clubbing, No swelling Integumentary: No rashes, No breakdown Neurological: Normal speech, Normal strength at 5/5 x4 extr Hospital Course: 63 yrs old Female with past medical history of diabetes, hypertension, pediatric limb movement disorder who presents to ER with complaints of urinary retention. Symptoms started today . She states that she urinated a small amount this morning, but hasn't been able to urinate since about 1030. Reports pain to lower abd due to full bladder. The patient was assessed in the ER and had to be placed on a Najera catheter. Discontinuing Najera trials for retention was f wade, plan to discharge home with home health, with home health doing bladder training. Assessment Acute cystitis-treated with po antibiotics, Urinary retention, Najera placed-continue Flomax after [id number] with Dr. Mcnamara for urinary retention, urology Leukocytosis resolved with antibiotic Hyponatremia resolved Hypertension, hyperlipidemia resume home med at discharge Diabetes resume home meds after discharge old lumbar compression fracture-will need to follow-up with neuro neurosurgery/orthopedic after discharge- GOAL: Clear understanding of disease process INSTRUCTIONS: Physician Discharge Instructions: -Follow-up with Dr. Mcnamara urology for urinary retention -Discharge home with home health -Follow-up with PCP in 1 to 2 weeks -Please call Dr. Cruz at [phone] if any questions regarding hospital stay -Please call nursing station at [phone] if any nursing or medication questions -Return to the emergency room if symptoms worsen Diet: ADA, low sodium Activity: Fall precaution Vital Signs/Physical Exam: Temp Pulse Resp BP Pulse Ox 98.1 F 78 16 110/60 96 05/07/24 12:00 05/07/24 12:00 05/07/24 12:00 05/07/24 12:00 05/07/24 12:00 Laboratory Data at Discharge: WBC 8.00 thou/uL (4.3-10.9) 05/06/24 07:45 Hgb 11.9 g/dL (12.0-15.0) L 05/06/24 07:45 Hct 35.7 % (36.0-45.0) L 05/06/24 07:45 Plt Count 221 thou/uL (152-406) 05/06/24 07:45 PT 13.6 SECONDS (9.4-12.5) H 05/03/24 22:47 INR 1.30 05/03/24 22:47 APTT 32.1 SECONDS (24.3-36.9) 05/03/24 22:47 Sodium 141 mEq/L (136-145) 05/06/24 07:40 Potassium 3.9 mEq/L (3.5-5.1) 05/06/24 07:40 BUN 11 mg/dL (7-18) 05/06/24 07:40 Creatinine 0.52 mg/dL (0.55-1.02) L 05/06/24 07:40 Glucose 92 mg/dL (74-106) 05/06/24 07:40 Total Bilirubin 0.4 mg/dL (0.2-1.0) 05/06/24 07:40 AST 14 U/L (15-37) L 05/06/24 07:40 ALT 23 U/L (13-56) 05/06/24 07:40 Alkaline Phosphatase 76 U/L (45-117) 05/06/24 07:40 Lipase 42 U/L (13-75) 05/03/24 21:13 Home Medications: Acetaminophen with Codeine [Tylenol with Codeine #4 Tablet] 1 tab PO BID 05/05/24 Amlodipine [Norvasc*] 10 mg PO DAILY 05/05/24 Buspirone HCl 7.5 mg PO BID 05/05/24 Furosemide [Lasix*] 20 mg PO DAILY 05/05/24 Metoprolol Tartrate [Lopressor*] 50 mg PO BID 05/05/24 Omeprazole 20 mg PO DAILY 05/05/24 Potassium Chloride [Klor-Con] 20 meq PO DAILY 05/05/24 Pregabalin [Lyrica*] 75 mg PO BID 05/05/24 Ropinirole HCl [Requip*] 1 mg PO BEDTIME 05/05/24 Tamsulosin [Flomax*] 0.4 mg PO BEDTIME 05/05/24 cloNIDine HCL [Clonidine HCl] 0.1 mg PO BID 05/05/24 methocarbamoL [Methocarbamol] 1,000 mg PO TIDP PRN 05/05/24 Ascorbic Acid [Vitamin C*] 500 mg PO DAILY 05/06/24 Aspirin Chewable [Aspirin Chewable*] 81 mg PO DAILY 05/06/24 Cholecalciferol (Vitamin D3) [Vitamin D3] 1 cap PO DAILY 05/06/24 Cyanocobalamin [Vitamin B-12*] 1,000 mcg PO DAILY 05/06/24 Ferrous Sulfate [Ferrous Sulfate*] 325 mg PO DAILY 05/06/24 Lactobacillus Combo No.10 [Probiotic] 1 cap PO DAILY 05/06/24 Loratadine [Claritin*] 10 mg PO DAILY 05/06/24 Zinc Gluconate [Zinc] 50 mg PO DAILY 05/06/24 Acetaminophen [Tylenol*] 650 mg PO Q4HP PRN tab 05/07/24 Codeine/APAP [Tylenol #3*] 1 tab PO Q4H PRN tab 05/07/24 Furosemide [Lasix*] 20 mg PO DAILY tab 05/07/24 Metoprolol Tartrate [Lopressor*] 50 mg PO BID tab 05/07/24 cloNIDine HCL [Catapres*] 0.1 mg PO BID tab 05/07/24 diazePAM [Valium*] 2 mg PO BID tab 05/07/24 Cefdinir [Cefdinir*] 300 mg PO BID #14 cap 05/08/24 New Medications: Cefdinir [Cefdinir*] 300 mg PO BID #14 cap Physician Discharge Instructions: 63 yrs old Female with past medical history of diabetes, hypertension, pediatric limb movement disorder who presents to ER with complaints of urinary retention. Symptoms started today . She states that she urinated a small amount this morning, but hasn't been able to urinate since about 1030. Reports pain to lower abd due to full bladder. The patient was assessed in the ER and had to be placed on a Najera catheter. Discontinuing Najera trials for retention was failed, plan to discharge home with home health, with home health doing bladder training. Resume home meds Discharge home on Macrobid 1 p.o. twice daily for 7 days Follow-up with urology for urinary retention Follow-up with Ortho's for lumbar compression fracture Home health care to work with bladder training, after discharge Assessment Acute cystitis-resolved with antibiotic Urinary retention, Najera placed-continue Flomax after [id number] with Dr. Mcnamara for urinary retention, urology Leukocytosis resolved with antibiotic Hyponatremia resolved Hypertension, hyperlipidemia resume home med at discharge Diabetes resume home meds after discharge old lumbar compression fracture-will need to follow-up with neuro neurosurgery/orthopedic after discharge- GOAL: Clear understanding of disease process INSTRUCTIONS: Physician Discharge Instructions: -Follow-up with Dr. Mcnamara urology for urinary retention -Discharge home with home health -Follow-up with PCP in 1 to 2 weeks -Please call Dr. Cruz at [phone] if any questions regarding hospital stay -Please call nursing station at [phone] if any nursing or medication questions -Return to the emergency room if symptoms worsen Diet: ADA, low sodium Activity: Fall precaution Diet: ADA Activity: Fall precautions Followup: Reyes Mcnamara [ACTIVE - CAN ADMIT] - 1-2 Weeks Beryl So FNP [Primary Care Provider] - 1-2 Weeks Time spent managing pt's care (in minutes): 45
[2024-05-07] MEDS ORDERED: QUETIAPINE 25 MG TAB PO ONE (16:17)
--- NOTE | 2024-05-07 18:41 | P.PN ---
Date of Service: 05/07/24 subjective Failed voiding trial, Najera had to be replaced, Patient anxious about going home, she refuses skilled care, nursing to educate on Najera cath emptying Review of Systems 10-point ROS is otherwise unremarkable Physical Examination - Vital Signs reviewed - Physical Exam General: Alert, In no apparent distress, Oriented x3 morbidly obese, tearful, HEENT: Atraumatic, Normocephalic Neck: Supple Respiratory: Clear to auscultation bilaterally, Normal air movement Cardiovascular: Regular rate/rhythm, Normal S1 S2 Capillary refill: <2 Seconds Gastrointestinal: Soft and benign, W/out hepatosplenomegaly, Tenderness Musculoskeletal: No clubbing, No swelling, max assist, back pain pain with range of motion Integumentary: No rashes, No breakdown Neurological: Normal speech, Normal strength at 5/5 x4 extr Lymphatics: No axilla or inguinal lymphadenopathy Urinary: Najera catheter Assessment and Plan - Plan Retention of urine Status post Najera catheter placement Acute cystitis with hematuria Leukocytosis likely secondary to UTI Started on IV antibiotic on cefepime 2 mg IV twice daily Urine cultures E. coli Change antibiotic as per sensitivity Need follow-up with urology/MATE CHIEF as outpatient Flomax added Hyponatremia Electrolytes monitor and replace accordingly IV hydration History lumbar compression fracture History of falls Morbid obesity BMI 51 Severe deconditioning on bedrest, Patient was at home with home health, PT, care home, Max assist with PT, OT eval ordered Pancreatic lesion 10 mm indeterminate pancreatic lesion as detailed. Hypertension Antihypertensives titrated Continue home medications and titrate as needed Hyperlipidemia Continue statin Diabetes Insulin sliding scale Accu-Chek before every meal and at bedtime GI/DVT prophylaxis Advanced directive full code Discharge Plan: Home Plan to discharge in: 48 Hours - Advance Directives Does patient have a Living Will: No Does patient have a Durable POA for Healthcare: No - Code Status/Comfort Care Code Status: Full Code Time Spent Managing Pts Care (In Minutes): 25
--- NOTE | 2024-05-08 11:21 | P.PN ---
Subjective Date of Service: 05/08/24 Patient decided she did not have enough help to go back home. She decided to go to SNF.Will also DC reis and straight cath if needed. Continue with PT/OT and nursing care Review of Systems 10-point ROS is otherwise unremarkable Physical Examination - Vital Signs Temperature: 98.5 F Blood Pressure: 119/60 Pulse: 64 Respirations: 16 Pulse Ox (%): 96 - Physical Exam General: Alert, In no apparent distress, Oriented x3, Obese HEENT: Atraumatic, PERRLA, EOMI Neck: Supple, JVD not distended Respiratory: Clear to auscultation bilaterally, Normal air movement Cardiovascular: Regular rate/rhythm, Normal S1 S2 Gastrointestinal: Normal bowel sounds, Soft and benign, Non-distended, No tenderness Musculoskeletal: No clubbing, No swelling, No tenderness Neurological: Sensation intact, Cranial nerves 3-12 intact - Studies Medications List Reviewed: Yes Assessment & Plan - Problems (Diagnosis) (1) Urinary retention Current Visit: Yes Status: Acute (2) Lumbar compression fracture Current Visit: Yes Status: Acute (3) Diabetes mellitus Current Visit: No Status: Acute Qualifiers: Diabetes mellitus type: type 2 (4) GERD (gastroesophageal reflux disease) Current Visit: No Status: Acute (5) Hypertension Current Visit: No Status: Acute Qualifiers: Hypertension type: essential hypertension Qualified Code(s): I10 - Essential (primary) hypertension (6) Acute cystitis Current Visit: Yes Status: Acute - Plan PLAN: 1. Acute cystitis with E. coli; continue with IVFs ad IV abx; work on her getting reis removed. Once removed. will straight cath her going forward 2. Generalized weakness; continue with PT 3. History of lumbar compression fractures; continue with strengthening with PT 4. HTN-antihypertensives 5. Neuropathy; lyrica 6. GERD-PPI 7. GI/DVT Discharge Plan: [facility] Plan to discharge in: Greater than 2 days - Advance Directives Does patient have a Living Will: No Does patient have a Durable POA for Healthcare: No - Code Status/Comfort Care Code Status: Full Code Critical Care: No Time Spent Managing PTS Care (In Minutes): 30
--- NOTE | 2024-05-08 14:06 | P.PN ---
Subjective Date of Service: 05/08/24 Chief Complaint: UTI Subjective: No new changes Patient is requesting to be seen by urology in the hospital, although no urology presales consultant is available at the hospital. A clear reynaldo-colored urine crack at any urinary bag. She has a scheduled to see her neurologist in 2 weeks Review of Systems Other: Consitutional; fever(-), chills (-), rigor(-), night sweat(-), unintentional weight loss(-), malaise (-) HEENT; diplopia (-), rhinorrhea (-), epistaxis (-), otorrhea (-), otalgia (-) Respiratory; shortness of breath (-), wheezing (-), cough (-), sputum (-), pleuritic chest pain (-) Cardiovascular; chest pain (-), peripheral edema (-), paroxysmal nocturnal dyspnea (-), orthopnea (-) Gastrointestinal; nausea (-), vomiting (-), abdominal pain (-), diarrhea (-), constipation (-), melena (-), hematochezia (-) Genitourinary; urinary frequency (-), dysuria (-), urgency (-), flank pain (-), gross hematuria (-), incontinence (-) Skin; rash (-), pruritus (-) 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 General: Not acutely ill looking, in no apparent distress,. HEENT: Normocephalic, atraumatic, nonicteric sclera, nonanemic conjunctive. Neck: Supple, without JVD or goiter or thyroid mass. Respiratory: Normal breathing effort, clear to auscultation bilaterally, no crackles no wheezing or rhonchi. Cardiovascular: Regular rate and rhythm, S1, S2 normal, no murmur no gallop. Gastrointestinal: Normal bowel sounds, nondistended, nontender, No ascites, , No masses, no hepatosplenomegaly. Extremities : No clubbing, No peripheral edema, reynaldo-colored urine in urinary bag. Integumentary: No rashes, petechia, suspected lesions. Lymphatics: No axilla or cervical lymphadenopathy. Neurology; alert awake oriented x3, no focal neurologic deficit, normal affection . mood and behavior. - Studies Medications List Reviewed: Yes Assessment And Plan - Plan 63 yrs old Female with past medical history of diabetes, hypertension,. Morbid obesity, periodic limb movement disorder, old lumbar vertebral fracture who presents to ER with complaints of urinary retention for 1 day #1 acute cystitis with E. coli Urine culture identification and sensitivity reviewed, will continue cefepime, which is definitive antibiotics, no sign of sepsis #2 acute urinary retention secondary to #1 or neurogenic bladder associated with old lumbar vertebral fracture failed self voiding trial, will keep Najera catheter in for now, repeat voiding trial in a few days, follow-up urologist as outpatient Disposition; [facility] placement
[2024-05-09 07:06] LABS: Absolute Basophils 0.1 K/uL (0-0.5); Absolute Eosinophils 0.2 K/uL (0-0.5); Absolute Lymphocytes (CBC) 2.1 K/uL (0.7-4.9); Absolute Monocytes 0.6 K/uL (0.1-1.3); Absolute Neutrophil 5.1 K/uL (1.8-8.0); Basophils % 0.6 % (0-1.3); Eosinophils % 3.1 % (0-4.4); Hematocrit 35.9 % (36.0-45.0); Hemoglobin 11.9 g/dL (12.0-15.0); Lymphocytes % 25.5 % (15.3-44.8); MCHC 33.2 g/dL (32.0-36.0); MCV 87.1 fL (80-100); MPV 7.2 fL (7.6-11.3); Monocytes % 7.9 % (3.3-12.3); Neutrophils % 62.9 % (41.7-73.7); Nucleated Red Blood Cells % 0.1 % (0-0); Platelets 241 thou/uL (152-406); RBC Red Blood Cell Count 4.12 M/uL (3.86-4.86); Red Cell Distribution Width 15.7 % (12.1-15.2)
[2024-05-09 07:20] LABS: Albumin 2.7 g/dL (3.4-5.0); Albumin/Globulin Ratio 0.8 (1.1-1.8); Anion Gap 6.5 mEq/L (5.0-15.0); Bilirubin Total 0.3 mg/dL (0.2-1.0); Globulin 3.2 g/dL (2.3-3.5); Magnesium 2.3 mg/dL (1.6-2.4); Potassium 4.5 mEq/L (3.5-5.1); Protein, Total 5.9 g/dL (6.4-8.2)
[2024-05-09] MEDS: methocarbamoL 500 MG TAB PO PRN (12:29)
--- NOTE | 2024-05-09 13:34 | P.PN ---
Subjective Date of Service: 05/09/24 Chief Complaint: UTI Subjective: New changes Outpatient indwelling Najera catheter was discontinued and changed to straight catheter about no urine output but bladder scan at bedside revealed 600 mL residual urine. Patient insist on seeing urologist and neurologist while in the hospital, which is not qualified for inpatient care. Review of Systems Other: Consitutional; fever(-), chills (-), rigor(-), night sweat(-), unintentional weight loss(-), malaise (-) HEENT; diplopia (-), rhinorrhea (-), epistaxis (-), otorrhea (-), otalgia (-) Respiratory; shortness of breath (-), wheezing (-), cough (-), sputum (-), p leuritic chest pain (-) Cardiovascular; chest pain (-), peripheral edema (-), paroxysmal nocturnal dyspnea (-), orthopnea (-) Gastrointestinal; nausea (-), vomiting (-), abdominal pain (-), diarrhea (-), constipation (-), melena (-), hematochezia (-) Genitourinary; urinary frequency (-), dysuria (-), urgency (-), flank pain (-), gross hematuria (-), incontinence (-) Skin; rash (-), pruritus (-) PERMANENT WAVER; headache (-), paresthesia (-), numbness (-), paralysis (-) Physical Examination - Vital Signs Temperature: 97.6 F Blood Pressure: 120/58 Pulse: 65 Respirations: 18 Pulse Ox (%): 95 - Physical Exam Other Physical/Emotional Findings: - Physical Exam. General: Morbidly obese, not acutely ill looking, in no apparent distress,. HEENT: Normocephalic, atraumatic, nonicteric sclera, nonanemic conjunctive. Neck: Supple, without JVD or goiter or thyroid mass. Respiratory: Normal breathing effort, clear to auscultation bilaterally, no crackles no wheezing or rhonchi. Cardiovascular: Regular rate and rhythm, S1, S2 normal, no murmur no gallop. Gastrointestinal: Normal bowel sounds, nondistended, nontender, No ascites, , No masses, no hepatosplenomegaly. Extremities : No clubbing, No peripheral edema,. Integumentary: No rashes, petechia, suspected lesions. Lymphatics: No axilla or cervical lymphadenopathy. Neurology; alert awake oriented x3, no focal neurologic deficit, - Studies Microbiology Data (last 24 hrs): 05/03/24 23:05 Blood - Blood Aerobic Blood Culture - Final No growth in 5 days. 05/03/24 23:05 Blood - Blood Anaerobic Blood Culture - Final No growth in 5 days. 05/03/24 22:47 Blood - Blood Aerobic Blood Culture - Final No growth in 5 days. 05/03/24 22:47 Blood - Blood Anaerobic Blood Culture - Final No growth in 5 days. Medications List Reviewed: Yes Assessment And Plan - Plan 63 yrs old Female with past medical history of diabetes, hypertension, Morbid obesity, periodic limb movement disorder, old lumbar vertebral fracture who presents to ER with complaints of urinary retention for 1 day #1 acute cystitis with E. coli, no sepsis Urine culture identification and sensitivity reviewed, will continue cefepime, today is day 5 which is definitive antibiotics, no sign of sepsis #2 acute urinary retention secondary to #1 or neurogenic bladder associated with old lumbar vertebral fracture failed self voiding trial x 2, we will reinsert Najera catheter and keep in for now,, follow-up urologist as outpatient for urodynamic study, will order neurology consult for patient request Disposition; SNF placement
[2024-05-09] MEDS: MAGNESIUM OXIDE 400 MG TAB PO SCH (21:00)
[2024-05-09] MEDS: PREGABALIN 50 MG CAP PO SCH (21:07)
--- NOTE | 2024-05-09 22:32 | CON ---
Reason For Consultation: Consultation called because of spinal cord compression and urinary retentio n. History Of Present Illness: Ms. Barrow is a 63-year-old patient with diabetes mellitus, hypertensi on, multiple lumbar vertebral compression fractures, and chronic lumbar spinal stenosis with reported inability to walk since around December of last year. She has had urinary retention and came to [facility] on 05/04/2024 with urinary tract infection. She had not been able to urinate for s everal hours and reported that she had abdominal pain. She was sent to the emergency room. Najera ca theter was placed for urine drainage. She had leukocytosis and was started on antibiotics for urinar y tract infection. The patient did note having surgery for cord compression with radiating pain and had seen a pain management physician and is now scheduled to follow up with a spine surgeon. At [facility] on the , abdomen and pelvis CT scan showed significant lower lumbar degenerative changes with thoracolumbar vertebral fusion, degenerative changes. The urinary bladder was decompres sed by means of Najera catheter. She had a 10 mm indeterminate pancreatic lesion and reportedly a non emergent MRI would be required to evaluate that. Past Medical History: As noted. Gastroesophageal reflux disease, sleep apnea, claustrophobia, diabe petar mellitus, morbid obesity, lymphedema. Allergies: AMOXICILLIN, CIPROFLOXACIN, POTASSIUM CLAVULANATE FROM AUGMENTIN, AND TETRACYCLINE. Medications: Currently, Tylenol No. 3 one tablet every 4 hours as needed, aspirin 81 mg daily, buspi unique 7.5 mg twice daily, cefepime 2 g every 12 hours, clonidine 0.1 mg twice daily, vitamin B12 1000 mcg daily, Valium 2 mg every 8 hours as scheduled, Lovenox 40 mg subcutaneously daily, Lasix 20 mg da corazon, lactobacillus 1 tablet daily, Claritin 10 mg daily, magnesium oxide 400 mg twice daily, methocar bamol 1000 mg 3 times daily, Lopressor 50 mg twice daily, she is receiving morphine sulfate 2 mg ever y 6 hours as needed for pain, Zofran 4 mg every 6 hours as needed for nausea, Protonix 40 mg daily, p otassium 20 mEq daily, Lyrica 100 mg twice daily, Requip 1 mg at bedtime, Flomax 0.4 mg at bedtime, a nd zinc sulfate 220 mg daily. Laboratory Studies: White blood cell count 8.1, hemoglobin 11.9, platelets 241. INR 1.3. Sodium 14 1, potassium 4.9, chloride 107, carbon dioxide 32, BUN 14, creatinine 0.7, glucose ranged from 80 to 156, calcium 9.1, magnesium 2.3, AST 15, ALT 24, total bilirubin 0.3, alkaline phosphatase 77. Urina lysis on the , extreme turbidity, 1+ blood, 2+ nitrite, 500 esterase, 20 to 50 red blood cells, g reater than 50 white blood cells, moderate clumps of white blood cells, urine bacteria 20 to 50, trac e urine protein. Family History: Noncontributory. Social History: No alcohol, tobacco, or IV drug use. Review of Systems: She reports moderate back pain, difficulty with standing and ambulating since last around December, and pain in both lower extremities and her knees of course gave away she tries to ambulate . Otherwise, mild myalgias and arthralgias. No rash. Mild depression and no other positives on the systems review. Physical Examination: Vital Signs: Blood pressure 107/60, pulse 59, respiratory rate 18, temperature 97.7, oxygen saturati on 99%. General: Ms. Barrow is sitting in bed. She was on the phone when I came in. HEENT: She appears normocephalic, atraumatic. Sclerae appear anicteric. Oropharynx pink and moist. Neck: Supple. Chest: Clear. Extremities: No significant edema or cyanosis noted. She has noted extreme obesity with BMI of 51.1 . Weight 300 pounds. Height 5 feet 4 inches. Neurologic: She has no focal deficits. Diffuse weakness, lower more than upper extremity, 3 to 4 pr oximally and distally. Sensory loss in a stocking-glove fashion. Assessment And Plan: Ms. Barrow is a 63-year-old patient with reported spinal cord stenosis causin g urinary retention, inability to ambulate. She is seeing spine surgeon. I recommend she has magnes ium for muscle spasms which she has noted. In addition, Lyrica is now increased from 75 mg twice johana ly to 100 mg twice daily. She has Requip 1 mg at bedtime, which may help with the extra leg spasming which she reports at night and she is on aspirin for stroke risk reduction. She has cefepime for ur inary tract infection. DVT prophylaxis on board. Pain management with multiple modality medications on board. The patient may have to go to a [facility] facility as she is unable to mobilize or transfer and ambulate on her own without high risk of injury or falling. She is not at the level for acute inpatient rehab at this point. [place]IL[place] Voice ID: [id number] Report ID: [id number]
--- NOTE | 2024-05-10 14:43 | P.PN ---
Subjective Date of Service: 05/10/24 Chief Complaint: UTI Subjective: No new changes She has no complaint, doing well with indwelling Najera catheter, anxious to have surgery for her lumbar stenosis as outpatient, waiting on SNF placement Review of Systems Other: Consitutional; fever(-), chills (-), rigor(-), night sweat(-), unintentional weight loss(-), malaise (-) HEENT; diplopia (-), rhinorrhea (-), epistaxis (-), otorrhea (-), otalgia (-) Respiratory; shortness of breath (-), wheezing (-), cough (-), sputum (-), pleuritic chest pain (-) Cardiovascular; chest pain (-), peripheral edema (-), paroxysmal nocturnal dyspnea (-), orthopnea (-) Gastrointestinal; nausea (-), vomiting (-), abdominal pain (-), diarrhea (-), constipation (-), melena (-), hematochezia (-) Genitourinary; urinary frequency (-), dysuria (-), urgency (-), flank pain (-), gross hematuria (-), incontinence (-) Skin; rash (-), pruritus (-) 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 General: Morbidly obese, not acutely ill looking, in no apparent distress,. HEENT: Normocephalic, atraumatic, nonicteric sclera, nonanemic conjunctive. Neck: Supple, without JVD or goiter or thyroid mass. Respiratory: Normal breathing effort, clear to auscultation bilaterally, no crackles no wheezing or rhonchi. Cardiovascular: Regular rate and rhythm, S1, S2 normal, no murmur no gallop. Gastrointestinal: Normal bowel sounds, nondistended, nontender, No ascites, , No masses, no hepatosplenomegaly. Extremities : No clubbing, No peripheral edema,. Integumentary: No rashes, petechia, suspected lesions. Lymphatics: No axilla or cervical lymphadenopathy. Neurology; alert awake oriented x3, no focal neurologic deficit, - Studies Medications List Reviewed: Yes Assessment And Plan - Plan 63 yrs old Female with past medical history of diabetes, hypertension, Morbid obesity, periodic limb movement disorder, lumbar spinal stenosis ,old multiple lumbar vertebral fracture status post thoracic lumbar fusion who presents to ER with complaints of urinary retention for 1 day #1 acute cystitis with E. coli, no sepsis Urine culture identification and sensitivity reviewed, will continue cefepime, which is definitive antibiotics, no sign of sepsis, today is day 6, planning on 7-day course of antibiotic treatment #2 Urinary retention secondary to likely neurogenic bladder associated with #3 failed self voiding trial x 2, Najera catheter reinserted and keep in for now,, follow-up urologist as outpatient for urodynamic study, #3 symptomatic lumbar spinal stenosis Lyrica dose increased to 100 mg twice daily by neurologist, continue Robaxin, ropinirole Disposition; SNF placement, patient is cleared for discharge
[2024-05-11] MEDS: LIDOCAINE 4% PATCH TOP SCH (10:47)
--- NOTE | 2024-05-11 13:35 | P.PN ---
Subjective Date of Service: 05/11/24 Chief Complaint: UTI Subjective: No new changes She is complaining of persistent low back pain and muscle spasm in spite of Lyrica, Robaxin,, doing well with indwelling Najera catheter, , waiting on [facility] placement Review of Systems Other: Consitutional; fever(-), chills (-), rigor(-), night sweat(-), unintentional weight loss(-), malaise (-) HEENT; diplopia (-), rhinorrhea (-), epistaxis (-), otorrhea (-), otalgia (-) Respiratory; shortness of breath (-), wheezing (-), cough (-), sputum (-), pleuritic chest pain (-) Cardiovascular; chest pain (-), peripheral edema (-), paroxysmal nocturnal dyspnea (-), orthopnea (-) Gastrointestinal; nausea (-), vomiting (-), abdominal pain (-), diarrhea (-), constipation (-), melena (-), hematochezia (-) Genitourinary; urinary frequency (-), dysuria (-), urgency (-), flank pain (-), gross hematuria (-), incontinence (-) Skin; rash (-), pruritus (-) 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 General: Morbidly obese, not acutely ill looking, in no apparent distress,. HEENT: Normocephalic, atraumatic, nonicteric sclera, nonanemic conjunctive. Neck: Supple, without JVD or goiter or thyroid mass. Respiratory: Normal breathing effort, clear to auscultation bilaterally, no crackles no wheezing or rhonchi. Cardiovascular: Regular rate and rhythm, S1, S2 normal, no murmur no gallop. Gastrointestinal: Normal bowel sounds, nondistended, nontender, No ascites, , No masses, no hepatosplenomegaly. Extremities : No clubbing, No peripheral edema,. Integumentary: No rashes, petechia, suspected lesions. Lymphatics: No axilla or cervical lymphadenopathy. Neurology; alert awake oriented x3, no focal neurologic deficit, - Studies Medications List Reviewed: Yes Assessment And Plan - Plan This is a 63 yrs old Female patient with past medical history of diabetes, hypertension, Morbid obesity, periodic limb movement disorder, lumbar spinal stenosis ,old multiple lumbar vertebral fracture status post thoracic lumbar fusion who presents to ER with complaints of urinary retention for 1 day #1 acute cystitis with E. coli, no sepsis Urine culture identification and sensitivity reviewed, will continue cefepime, which is definitive antibiotics, no sign of sepsis, today is day 7, planning on 7-day course of antibiotic treatment #2 Urinary retention secondary to likely neurogenic bladder associated with #3 failed self voiding trial x 2, Najera catheter reinserted and keep in for now,, follow-up urologist as outpatient for urodynamic study, #3 symptomatic lumbar spinal stenosis Lyrica dose increased to 100 mg twice daily by neurologist, continue Robaxin, ropinirole, I will add lidocaine patch today Disposition; SNF placement, patient is cleared for discharge
[2024-05-12] MEDS: HYDROMORPHONE HCL 1 MG/ML INJ IV PRN (01:35)
[2024-05-12] MEDS ORDERED: LIDOCAINE 4% PATCH TOP SCH (09:00)
--- NOTE | 2024-05-12 14:24 | P.PN ---
Subjective Date of Service: 05/12/24 Chief Complaint: UTI Subjective: No new changes She is complaining of persistent low back pain and muscle spasm of lower extremity in spite of Lyrica, Robaxin, lidocaine patch, keeping indwelling Najera catheter, , waiting on SNF placement Review of Systems Other: Consitutional; fever(-), chills (-), rigor(-), night sweat(-), unintentional weight loss(-), malaise (-) HEENT; diplopia (-), rhinorrhea (-), epistaxis (-), otorrhea (-), otalgia (-) Respiratory; shortness of breath (-), wheezing (-), cough (-), sputum (-), pleuritic chest pain (-) Cardiovascular; chest pain (-), peripheral edema (-), paroxysmal nocturnal dyspnea (-), orthopnea (-) Gastrointestinal; nausea (-), vomiting (-), abdominal pain (-), diarrhea (-), constipation (-), melena (-), hematochezia (-) Genitourinary; urinary frequency (-), dysuria (-), urgency (-), flank pain (-), gross hematuria (-), incontinence (-) Skin; rash (-), 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 General: Morbidly obese, not acutely ill looking, in no apparent distress,. HEENT: Normocephalic, atraumatic, nonicteric sclera, nonanemic conjunctive. Neck: Supple, without JVD or goiter or thyroid mass. Respiratory: Normal breathing effort, clear to auscultation bilaterally, no crackles no wheezing or rhonchi. Cardiovascular: Regular rate and rhythm, S1, S2 normal, no murmur no gallop. Gastrointestinal: Normal bowel sounds, nondistended, nontender, No ascites, , No masses, no hepatosplenomegaly, reynaldo urine collected in urine bag. Extremities : No clubbing, No peripheral edema,. Integumentary: No rashes, petechia, suspected lesions. Lymphatics: No axilla or cervical lymphadenopathy. Neurology; alert awake oriented x3, no focal neurologic deficit, - Studies Medications List Reviewed: Yes Assessment And Plan - Plan This is a 63 yrs old Female patient with past medical history of diabetes, hypertension, Morbid obesity, periodic limb movement disorder, lumbar spinal stenosis ,old multiple lumbar vertebral fracture status post thoracic lumbar fusion who presents to ER with complaints of urinary retention for 1 day #1 acute cystitis with E. coli, no sepsis Finish 7 days of definite antibiotics with cefepime #2 Urinary retention secondary to likely neurogenic bladder associated with #3 failed self voiding trial x 2, Najera catheter reinserted and keep in for now,, follow-up urologist as outpatient for urodynamic study, #3 symptomatic lumbar spinal stenosis Lyrica dose increased to 100 mg twice daily by neurologist 2 days ago, continue Robaxin, ropinirole, lidocaine patch Disposition; SNF placement per patient request, patient has been cleared for discharge since this Wednesday, 05/08. assistant banquet manager asked me to call the insurance company for peer to peer review today. I called [facility] at [phone]. The insurance company does not have a peer to peer review until May 15 on Wednesday, one is set up with my NPI number for May 15 between 4-4 30PM. The insurance delegate will call in the time window. Callback number given is [phone]
--- NOTE | 2024-05-13 09:22 | P.PN ---
Subjective Date of Service: 05/13/24 Chief Complaint: UTI She was seen via Tele-Medicine. Verbal consent obtained prior to visit. She was seen on rounds today. She denies any new concerns. She reports left lower extremity weakness and urinary retention. She states that her pain is well controlled. She states that she saw Dr. Hunt (Orthopedic Surgery) as an outpatient, who recommended surgery; however, she declined and requested a second opinion. She is currently scheduled to see Dr. Campa (Neurosurgery) as an outpatient. She denies any fevers or chills. Review of Systems 10-point ROS is otherwise unremarkable General: Unremarkable Respiratory: Unremarkable Cardiovascular: Unremarkable Genitourinary: Retention Neurological: Weakness Physical Examination - Vital Signs Temperature: 97.6 F Blood Pressure: 100/71 Pulse: 66 Respirations: 16 Pulse Ox (%): 93 - Physical Exam General: Alert, In no apparent distress, Oriented x3 HEENT: Atraumatic Other Physical/Emotional Findings: Exam limited as this is a Tele-Medicine visit - Studies Medications List Reviewed: Yes Assessment And Plan - Plan # Urinary Retention though to be due to Neurogenic Bladder from Lumbar Spinal Stenosis # Morbid Obesity - BMI 51.5 kg/m2 - She saw Orthopedic Spine Surgery (Dr. Hunt) as an outpatient - He advised surgery, but she has declined as she would like a second opinion - She has scheduled an outpatient appointment with Neurosurgery (Dr. Campa) - Neurology consulted and spoke with Dr. Telles - recs appreciated - He recommends possible decompressive surgery if symptoms are acute - I called and discussed with on-site hospitalist Dr. Kenney, who agrees to see and examine her personally. 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 She verbalized understanding. Disposition: I called and discussed her case with on-site hospitalist Dr. Kenney, who agrees to see and examine her personally. If neurological findings are concerning, she will initiate a transfer for higher level of care and emergent neurosurgical evaluation Josemanuel Hines M.D.
--- NOTE | 2024-05-13 11:36 | P.PN ---
Date of Service: 05/13/24 Patient was seen and examined per request of a telemedicine doctor, . She reports no change in her condition, complaining of lower extremity weakness and intermittent muscle cramp of both lower extremity for a few weeks, no paralysis or fecal incontinence or saddle anesthesia. Patient had a normal bowel movement on May. Today's exam, muscle strength grade Rt 3/5, Lt 4/5 of lower extremity, sensory intact to light touch. There is no sign of spinal cord compression or Cauda Equina syndrome. She is scheduled to see neurosurgeon next week for possible surgical decompression of lumbar spinal stenosis. No urgent intervention is indicated at the moment. I will change her Robaxin to scheduled dose from as needed for better control of muscle spasm.
[2024-05-13] MEDS: methocarbamoL 500 MG TAB PO SCH (14:08)
[2024-05-13 22:43] VITALS: O2SAT 96
--- NOTE | 2024-05-14 13:32 | P.PN ---
Subjective Date of Service: 05/14/24 Chief Complaint: UTI Subjective: No new changes She is complaining of persistent low back pain and muscle spasm of lower extremity, unchanged. She has no new symptoms, eating lunch in bed talking to a friend on cell phone in no acute distress Review of Systems Other: Consitutional; fever(-), chills (-), rigor(-), night sweat(-), unintentional weight loss(-), malaise (-) HEENT; diplopia (-), rhinorrhea (-), epistaxis (-), otorrhea (-), otalgia (-) Respiratory; shortness of breath (-), wheezing (-), cough (-), sputum (-), pleuritic chest pain (-) Cardiovascular; chest pain (-), peripheral edema (-), paroxysmal nocturnal dyspnea (-), orthopnea (-) Gastrointestinal; nausea (-), vomiting (-), abdominal pain (-), diarrhea (-), constipation (-), melena (-), hematochezia (-) Genitourinary; urinary frequency (-), dysuria (-), urgency (-), flank pain (-), gross hematuria (-), incontinence (-) Skin; rash (-), 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 General: Obese not acutely ill looking, in no apparent distress,. HEENT: Normocephalic, atraumatic, nonicteric sclera, nonanemic conjunctive. Neck: Supple, without JVD or goiter or thyroid mass. Respiratory: Normal breathing effort, clear to auscultation bilaterally, no crackles no wheezing or rhonchi. Cardiovascular: Regular rate and rhythm, S1, S2 normal, no murmur no gallop. Gastrointestinal: Normal bowel sounds, nondistended, nontender, No ascites, , No masses, no hepatosplenomegaly. Extremities : No clubbing, No peripheral edema,. Integumentary: No rashes, petechia, suspected lesions. Lymphatics: No axilla or cervical lymphadenopathy. Neurology; alert awake oriented x3, unchanged motor weakness of the left lower extremity, 3/5, 4/5 - Studies Medications List Reviewed: Yes Assessment And Plan - Plan This is a 63 yrs old Female patient with past medical history of diabetes, hypertension, Morbid obesity, periodic limb movement disorder, lumbar spinal stenosis ,old multiple lumbar vertebral fracture status post thoracic lumbar fusion who presents to ER with complaints of urinary retention for 1 day #1 acute cystitis with E. coli, no sepsis Finish 7 days of definite antibiotics with cefepime #2 Urinary retention secondary to likely neurogenic bladder associated with #3 failed self voiding trial x 2, Najera catheter reinserted and keep in for now,, follow-up urologist as outpatient for urodynamic study, #3 symptomatic lumbar spinal stenosis Lyrica dose increased to 100 mg twice daily by neurologist 2 days ago, continue Robaxin, ropinirole, lidocaine patch #4 hypertension Her blood pressure is on borderline, systolic blood pressure around 100, heart rate 60/min, I will cut down her metoprolol dose to 25 mg twice daily today. Disposition; SNF placement per patient request, patient has been cleared for discharge since this Wednesday, 05/08. manager company asked me to call the insurance company for peer to peer review today. I called [facility] at [phone]. The insurance company does not have a peer to peer review until May 15 on Wednesday, one is set up with my NPI number for May 15 between 4-4 30PM. The insurance delegate will call in the time window. Callback number given is [phone]
[2024-05-14] MEDS: METOPROLOL TAR 25 MG TAB PO SCH (21:28)
[2024-05-15 10:19] LABS: Absolute Eosinophils 0.2 K/uL (0-0.5); Absolute Lymphocytes (CBC) 1.7 K/uL (0.7-4.9); Absolute Monocytes 0.4 K/uL (0.1-1.3); Absolute Neutrophil 3.8 K/uL (1.8-8.0); Basophils % 0.6 % (0-1.3); Eosinophils % 3.3 % (0-4.4); Hematocrit 37.6 % (36.0-45.0); Hemoglobin 12.5 g/dL (12.0-15.0); Lymphocytes % 28.3 % (15.3-44.8); MCH 28.7 pg (27.0-35.0); MCHC 33.2 g/dL (32.0-36.0); MCV 86.5 fL (80-100); MPV 7.5 fL (7.6-11.3); Monocytes % 5.8 % (3.3-12.3); Nucleated Red Blood Cells % 0.1 % (0-0); Platelets 151 thou/uL (152-406); RBC Red Blood Cell Count 4.35 M/uL (3.86-4.86); Red Cell Distribution Width 16.9 % (12.1-15.2)
[2024-05-15 10:35] LABS: Albumin 2.9 g/dL (3.4-5.0); Albumin/Globulin Ratio 0.9 (1.1-1.8); Anion Gap 7.8 mEq/L (5.0-15.0); Bilirubin Total 0.3 mg/dL (0.2-1.0); Globulin 3.4 g/dL (2.3-3.5); Magnesium 2.3 mg/dL (1.6-2.4); Potassium 3.8 mEq/L (3.5-5.1); Protein, Total 6.3 g/dL (6.4-8.2)
[2024-05-16 08:16] VITALS: BP 140/65
[2024-05-16 08:47] VITALS: TEMP 98.1
--- NOTE | 2024-05-16 17:36 | P.PN ---
Date of Service: 05/15/24 subjective plan to dc home [facility], she has an ortho apt in am Review of Systems 10-point ROS is otherwise unremarkable Physical Examination - Vital Signs reviewed - Physical Exam General: Alert, In no apparent distress, Oriented x3 morbidly obese HEENT: Atraumatic, Normocephalic Neck: Supple Respiratory: Clear to auscultation bilaterally, Normal air movement Cardiovascular: Regular rate/rhythm, Normal S1 S2 Capillary refill: <2 Seconds Gastrointestinal: Soft and benign, W/out hepatosplenomegaly, Tenderness Musculoskeletal: No clubbing, No swelling, max assist, back pain pain with range of motion Integumentary: No rashes, No breakdown Neurological: Normal speech, Normal strength at 5/5 x4 extr Lymphatics: No axilla or inguinal lymphadenopathy Urinary: Najera catheter Assessment and Plan - Plan Retention of urine Status post Najera catheter placement Acute cystitis with hematuria Leukocytosis likely secondary to UTI Started on IV antibiotic on cefepime 2 mg IV twice daily Urine cultures E. coli Change antibiotic as per sensitivity Need follow-up with urology/MASTER WELDER as outpatient Flomax added Hyponatremia Electrolytes monitor and replace accordingly IV hydration History lumbar compression fracture History of falls Morbid obesity BMI 51 Severe deconditioning on bedrest, Patient was at home with home health, PT, [facility], Max assist with PT, OT eval ordered Pancreatic lesion 10 mm indeterminate pancreatic lesion as detailed. Hypertension Antihypertensives titrated Continue home medications and titrate as needed Hyperlipidemia Continue statin Diabetes Insulin sliding scale Accu-Chek before every meal and at bedtime GI/DVT prophylaxis Advanced directive full code Discharge Plan: Home Plan to discharge in: 48 Hours - Advance Directives Does patient have a Living Will: No Does patient have a Durable POA for Healthcare: No - Code Status/Comfort Care Code Status: Full Code Time Spent Managing Pts Care (In Minutes): 25
== END 2024-05-16 08:37 | disposition home health service (06) | DRG 690 ==
LOC: ER 20:29 → ERHOLD 05-04 01:11 → 4TH 05-04 12:52 → 2ND 05-04 14:16
PROVIDERS: ADMIT Family Medicine; ATTEND Hospitalist
PROC: 0T9B70Z Drainage of Bladder with Drainage Device, Via Natural or Artificial Opening (ICD-10-PCS; principal; 2024-05-05)
DX: N30.01 Acute cystitis with hematuria (principal); Z68.43 Body mass index [BMI] 50.0-59.9, adult; E87.1 Hypo-osmolality and hyponatremia; Z16.24 Resistance to multiple antibiotics; E66.01 Morbid (severe) obesity due to excess calories; I10 Essential (primary) hypertension; E11.40 Type 2 diabetes mellitus with diabetic neuropathy, unspecified; E78.5 Hyperlipidemia, unspecified; M48.061 Spinal stenosis, lumbar region without neurogenic claudication; K86.9 Disease of pancreas, unspecified; N28.9 Disorder of kidney and ureter, unspecified; N31.9 Neuromuscular dysfunction of bladder, unspecified; K76.0 Fatty (change of) liver, not elsewhere classified; K21.9 Gastro-esophageal reflux disease without esophagitis; M48.56XD Collapsed vertebra, not elsewhere classified, lumbar region, subsequent encounter for fracture with routine healing; B96.20 Unspecified Escherichia coli [E. coli] as the cause of diseases classified elsewhere; R33.9 Retention of urine, unspecified; Z88.1 Allergy status to other antibiotic agents; Z88.8 Allergy status to other drugs, medicaments and biological substances; Z79.82 Long term (current) use of aspirin; Z79.84 Long term (current) use of oral hypoglycemic drugs; Z90.49 Acquired absence of other specified parts of digestive tract; Z79.899 Other long term (current) drug therapy
CPT/HCPCS: 36415; 51702; 74177; 80048; 80053; 81001; 82947; 83605; 83690; 83735; 85025; 85610; 85730; 87040; 87077; 87086; 87088; 87186; 93005; 96365; 97110; 97161; 97165; 97530; 99285; J0692; J0696; J1171; J1650; J2003; J2270; J7030; Q9967